=== PATIENT | male | born 1985 | race Caucasian/White ===

== ENCOUNTER 2021-04-23 08:35 | Outpatient (REF) | payer OTHER, SELFPAY ==
[2021-04-23 11:23] LABS: MANUAL DIFF FLAG NO
[2021-04-23 11:26] LABS: Basophils Absolute Auto 0.1 X10*3/uL (0.0-0.2); Basophils Percent Auto 0.8 % (0-2); Eosinophils Absolute Auto 0.1 X10*3/uL (0.0-0.4); Hematocrit 43.7 % (42.0-52.0); Hemoglobin 14.5 g/dl (14.0-18.0); Imm Gran Abs Auto 0.01 X10*3/uL (0.00-0.03); Imm Gran Pct Auto 0.2 % (0.0-0.4); Lymphocytes Absolute Auto 1.9 X10*3/uL (1.2-4.9); Lymphocytes Percent Auto 28.8 % (20-40); Mean Corpuscular HGB Conc 33.2 g/dl (31.0-36.0); Mean Corpuscular Hemoglobin 29.1 pg (27.0-33.0); Mean Corpuscular Volume 87.6 fL (80.0-98.0); Mean Platelet Volume 11.1 fL (9.4-12.4); Monocytes Absolute Auto 0.5 X10*3/uL (0.1-1.2); Neutrophils Absolute Auto 4.03 x10*3/uL (2.0-8.3); Neutrophils Percent Auto 61.2 % (45-73); Platelet Count 261 X10*3/uL (160-400); Red Blood Count 4.99 X10*6/uL (4.60-5.80); Red Cell Distribution Width 13.8 % (11.0-16.0); White Blood Count 6.6 X10*3/uL (4.8-10.8)
[2021-04-23 11:46] LABS: Alanine Aminotransferase 32 U/L (0-40); Albumin Level 4.4 g/dL (3.5-5.0); Alkaline Phosphatase 72 U/L (39-117); Anion Gap 11 (12-20); Aspartate Amino Transferase 19 U/L (5-37); Bilirubin Total 1.4 mg/dL (0.0-1.0); Blood Urea Nitrogen 13 mg/dL (9-16); Calcium 9.5 mg/dL (8.4-10.2); Carbon Dioxide 27 mmol/L (22-29); Chloride 106 mmol/L (96-108); Cholesterol 229 mg/dL; Estimated Glomerular Filt Rate > 60; Glucose Fasting 102 mg/dL (60-99); HDL Cholesterol 53 mg/dL; LDL Cholesterol Calculated 157 mg/dl; Potassium 4.2 mmol/L (3.3-5.1); Sodium 140 mmol/L (135-145); Triglycerides 97 mg/dL
[2021-04-23 12:09] LABS: TSH reflex Free T4 1.91 uIU/mL (0.32-4.0)
[2021-04-23 13:22] LABS: Appearance Urine CLEAR; Color Urine YELLOW; Glucose Urine UA NEG (NEG); Leukocyte Esterase Urine NEG (NEG); Nitrite Urine NEG (NEG); PH 6.5 (5.0-8.0); Specific Gravity - Urine 1.015 (1.005-1.025); Urine Blood NEG (NEG); Urine Ketones NEG (NEG); Urine Protein NEG (NEG-TRACE)
== END 2021-04-23 08:36 | disposition home or self-care (01) ==
LOC: HO.HMGCLDS 08:35
PROVIDERS: PCP Nurse Practitioner Family; Visit Provider Nurse Practitioner Family
DX: Z00.00 Encounter for general adult medical examination without abnormal findings (principal)
CPT/HCPCS: 36415; 80053; 80061; 81003; 84443; 85025

== ENCOUNTER 2021-10-27 08:52 | Outpatient (REF) | payer OTHER, SELFPAY ==
[2021-10-27 11:35] LABS: Appearance Urine CLEAR; Color Urine YELLOW; Glucose Urine UA NEG (NEG); Leukocyte Esterase Urine NEG (NEG); Nitrite Urine NEG (NEG); PH 6.5 (5.0-8.0); Urine Blood NEG (NEG); Urine Ketones NEG (NEG); Urine Protein NEG (NEG-TRACE)
[2021-10-27 12:12] LABS: Alanine Aminotransferase 28 U/L (0-40); Albumin Level 4.2 g/dL (3.5-5.0); Alkaline Phosphatase 67 U/L (39-117); Anion Gap 12 (12-20); Aspartate Amino Transferase 19 U/L (5-37); Bilirubin Total 1.5 mg/dL (0.0-1.0); Blood Urea Nitrogen 14 mg/dL (9-16); Calcium 9.5 mg/dL (8.4-10.2); Carbon Dioxide 25 mmol/L (22-29); Chloride 106 mmol/L (96-108); Cholesterol 199 mg/dL; Estimated Glomerular Filt Rate > 60; Glucose Fasting 104 mg/dL (60-99); HDL Cholesterol 50 mg/dL; LDL Cholesterol Calculated 127 mg/dl; Potassium 4.3 mmol/L (3.3-5.1); Sodium 139 mmol/L (135-145); Total Protein 6.9 g/dL (6.5-8.0); Triglycerides 110 mg/dL
[2021-10-27 12:26] LABS: TSH reflex Free T4 2.07 uIU/mL (0.32-4.0)
== END 2021-10-27 08:53 | disposition home or self-care (01) ==
LOC: HO.HMGCLDS 08:52
PROVIDERS: PCP Nurse Practitioner Family; Visit Provider Nurse Practitioner Family
DX: E66.9 Obesity, unspecified (principal); E78.5 Hyperlipidemia, unspecified
CPT/HCPCS: 36415; 80053; 80061; 81003; 84443

== ENCOUNTER → 2021-12-14 11:24 | Outpatient (BNVA) | payer OTHER, SELFPAY | PROVIDERS: PCP Nurse Practitioner Family; Visit Provider Dietitian, Registered | DX: E66.9 Obesity, unspecified (principal); Z68.41 Body mass index [BMI] 40.0-44.9, adult; Z71.3 Dietary counseling and surveillance | CPT/HCPCS: 97802 ==

== ENCOUNTER 2022-08-19 06:57 | Outpatient (REF) | payer OTHER, SELFPAY ==
[2022-08-19 11:29] LABS: Appearance Urine Turbid; Color Urine Yellow; Glucose Urine UA Negative (Negative); Leukocyte Esterase Urine Negative (Negative); Nitrite Urine Negative (Negative); PH 5.5 (5.0-9.0); Urine Blood Negative (Negative); Urine Ketones Negative (Negative); Urine Protein Negative (Neg-Trace)
[2022-08-19 11:31] LABS: MANUAL DIFF FLAG NO
[2022-08-19 11:40] LABS: Basophils Percent Auto 0.8 % (0-2); Eosinophils Absolute Auto 0.1 X10*3/uL (0.0-0.4); Eosinophils Percent Auto 2.3 % (0-4); Hematocrit 42.8 % (42.0-52.0); Hemoglobin 14.1 g/dl (14.0-18.0); Imm Gran Abs Auto 0.01 X10*3/uL (0.00-0.03); Imm Gran Pct Auto 0.2 % (0.0-0.4); Lymphocytes Absolute Auto 1.6 X10*3/uL (1.2-4.9); Mean Corpuscular HGB Conc 32.9 g/dl (31.0-36.0); Mean Corpuscular Hemoglobin 28.8 pg (27.0-33.0); Mean Corpuscular Volume 87.5 fL (80.0-98.0); Mean Platelet Volume 11.5 fL (9.4-12.4); Monocytes Absolute Auto 0.4 X10*3/uL (0.1-1.2); Monocytes Percent Auto 8.6 % (2-11); Neutrophils Absolute Auto 2.9 x10*3/uL (2.0-8.3); Neutrophils Percent Auto 56.1 % (45-73); Platelet Count 235 X10*3/uL (160-400); Red Blood Count 4.89 X10*6/uL (4.60-5.80); Red Cell Distribution Width 13.6 % (11.0-16.0); White Blood Count 5.1 X10*3/uL (4.8-10.8)
[2022-08-19 12:12] LABS: Alanine Aminotransferase 24 U/L (0-40); Albumin Level 4.2 g/dL (3.5-5.0); Alkaline Phosphatase 74 U/L (39-117); Anion Gap 9 (12-20); Aspartate Amino Transferase 20 U/L (5-37); Bilirubin Total 1.4 mg/dL (0.0-1.0); Blood Urea Nitrogen 18 mg/dL (9-16); Calcium 8.7 mg/dL (8.4-10.2); Carbon Dioxide 26 mmol/L (22-29); Chloride 107 mmol/L (96-108); Cholesterol 195 mg/dL; Estimated Glomerular Filt Rate > 60; Glucose Fasting 98 mg/dL (60-99); HDL Cholesterol 43 mg/dL; LDL Cholesterol Calculated 140 mg/dl; Potassium 4.1 mmol/L (3.3-5.1); Sodium 138 mmol/L (135-145); TSH reflex Free T4 2.03 uIU/mL (0.32-4.0); Total Protein 6.6 g/dL (6.5-8.0); Triglycerides 64 mg/dL
== END 2022-08-19 06:58 | disposition home or self-care (01) ==
LOC: HO.HMGCLDS 06:57
PROVIDERS: PCP Nurse Practitioner Family; Visit Provider Nurse Practitioner Family
DX: Z00.00 Encounter for general adult medical examination without abnormal findings (principal)
CPT/HCPCS: 36415; 80053; 80061; 81003; 84443; 85025

== ENCOUNTER 2023-04-18 08:10 | Outpatient (AMB) | payer OTHER, SELFPAY ==
--- NOTE | 2023-04-18 08:25 | MHC.OFFWIV ---
Intake Vital Signs 04/18/23 08:26 Height 6 ft Weight 244 lb 4 oz BMI 33.1 BP 120/72 Blood Pressure Location Rt brachial Position Sitting Pulse 56 Pulse Source Pulse Oximeter Temp 97.9 F Temp Source Oral Pulse Oximetry (%) 96 Oxygen Delivery Method Room Air Intake Visit Reasons: EP Rash Intake Note: Patient is here today for a rash which pt states started from groin area and spread to upper chest area. Patient states it occurred Tuesday. Patient Tobacco Use Status: Never used Tobacco Allergies No Known Allergies Allergy (Verified 04/18/23 08:47) Medication List - Last Reconciled 04/18/23 by Tucker Hendrix MD multivitamin 1 tab PO DAILY Do you need a note to return to daycare/school/sports/work: No HPI EP Rash HPI Details 37-year-old male presents to the office for a sick visit. Patient is reporting symptoms of her rash for the past 2 or 3 days. The rash began in the groin and has now spread into the chest and upper arm area. Predominant symptoms are itching. Patient travel to the [place] and returned a week ago. He has active . [facility] Surgical History History of appendectomy Family History Paternal Grandfather Heart disease Diabetes Social History Housing: Condominium Alcohol intake: current Alcohol intake frequency: a few times a week Patient Tobacco Use Status: Never used Tobacco e-Cigarette/Vaping Use: Never Used service: Yes Current occupational status: employed Cognitive needs: No Hearing needs: No Vision needs: Yes Physical Exam Vital Signs: Last Vital Signs Temp 97.9 F 04/18/23 08:26 Pulse 56 04/18/23 08:26 BP 120/72 04/18/23 08:26 Pulse Ox 96 04/18/23 08:26 Oxygen Delivery Method Room Air 04/18/23 08:26 BMI result Body Mass Index 33.1 Const General: cooperative and healthy appearing Nutritional Appearance: well nourished Orientation/consciousness: patient oriented x3 Limitations: no limitations HEENT Head: Yes normal to inspection Eyes General: appearance normal, both eyes and all related structures Neck Neck: Yes normal visual inspection Chest Chest palpation & inspection: normal palpation of entire chest wall Resp Effort & Inspection: normal respiratory effort Skin Other: Erythematous rash in the groin and upper arms. The rash is maculopapular with no vesicles or pustules. No scales seen. Neuro General: patient oriented x3 Assessment & Plan Assessment & Plan (1) Rash: Code(s): R21 - Rash and other nonspecific skin eruption Plan: Rashes mostly irritant in etiology. Tapering dose of prednisone and hydrocortisone cream given. If symptoms do not improve to follow-up here. Coding Level of Care Code Est Pt Level 3 (75696) Diagnoses Rash R21
[2023-04-18 08:26] VITALS: BP 120/72; PULSE 56; TEMP 36.6; O2SAT 96; BMI 33.1
== END 2023-04-18 08:52 | disposition home or self-care (01) ==
PROVIDERS: PCP Nurse Practitioner Family; Visit Provider Internal Medicine
DX: R21 Rash and other nonspecific skin eruption (principal)
CPT/HCPCS: 99213

== ENCOUNTER 2023-09-05 08:48 | Outpatient (AMB) | payer OTHER, SELFPAY ==
[2023-09-05 08:51] VITALS: BP 122/78; PULSE 62; O2SAT 98; BMI 33.6
--- NOTE | 2023-09-05 08:51 | A.OFFPC_ITS ---
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 Will order labs. Pt c/o bilat knee pain. He reports that this is worse when exercising, (long runs, doing squats, or lunges). Pt does report popping. Will order XRs and refer to ortho. [facility] Surgical History History of appendectomy Family History Paternal Grandfather Heart disease Diabetes Social History Housing: Condominium Alcohol intake: current Alcohol intake frequency: a few times a week Patient Tobacco Use Status: Never used Tobacco e-Cigarette/Vaping Use: Never Used service: Yes Current occupational status: employed Cognitive needs: No Hearing needs: No Vision needs: Yes Questionnaire PHQ-9 Over the last 2 weeks, how often have you been bothered by any of the following problems? 1. Little interest or pleasure in doing things: not at all 2. Feeling down, depressed, or hopeless: not at all 3. Trouble falling or staying asleep, or sleeping too much: not at all 4. Feeling tired or having little energy: several days 5. Poor appetite or overeating: not at all 6. Feeling bad about yourself - or that you are a failure or have let yourself or your family down: not at all 7. Trouble concentrating on things, such as reading the newspaper or watching television: not at all 8. Moving or speaking so slowly that other people could have noticed. Or the opposite - being so fidgety or restless that you have been moving around a lot more than usual: not at all 9. Thoughts that you would be better off or of hurting yourself in some way: not at all Total score: 1 Depression Screening Interpretation: Negative Depression Screening Done: Yes 12503 - PHQ-9 Billing: Yes Source: Developed by Drs. You Mchugh, Malia Cast, Choco Enriquez and colleagues, with an educational elmer from [id number]. Thrive Questionnaire Date Thrive assessed: 09/05/23 I am a: Patient What is your living situation today?: I have a steady place to live Within the past 12 months, did the food you bought not last and you didn't have the money to get more?: Never true Within the past 12 months, did you worry whether your food would run out before you got money to buy more?: Never true Do you have trouble paying for medicines?: No Do you have trouble getting transportation to medical appointments?: No Do you have trouble paying your heating and electricity bill?: No Do you have trouble taking care of your child, family member or friend?: No Do you have trouble with day-to-day activities such as bathing, preparing meals, shopping, managing finances, etc.?: No Are you currently unemployed and looking for a job?: No Are you interested in more education?: No Please select the resources that you would like help with: None Currently or been in a relationship where the following occur: no concerns reported THRIVE Score: 0 AUDIT C Alcohol Use Questionnaire (AUDIT-C) 1. How often do you have a drink containing alcohol?: 2-4 times a month 2. How many drinks containing alcohol do you have on a typical day when you are drinking?: 3 or 4 3. How often do you have six or more drinks on one occasion?: Never Total Score: 3 Score Reviewed/Action Taken: Yes NARA-7 AMB Questionnaire NARA-7 Date NARA - 7 assessed: 09/05/23 Feeling nervous, anxious, or on edge: 0 = Not at all Not being able to stop or control worryin = Not at all Worrying too much about different things: 0 = Not at all Trouble relaxin = Not at all Being so restless that it is hard to sit still: 0 = Not at all Becoming easily annoyed or irritable: 0 = Not at all Feeling afraid as if something awful might happen: 0 = Not at all Total NARA-7 score (0-4 normal; 5-9 mild; 10-14 moderate; 15-21 severe): 0 Source: Developed by Drs. You Mchugh, Malia Cast, Choco Enriquez and colleagues, with an educational elmer from [id number]. NARA-7 Assessment Billing NARA-7 Assessment Tool: NARA-7 Assessment 46551 Review of Systems Const Denies chills and Denies fever(s) Eyes Denies blurry vision ENT Denies vertigo, Denies dizziness and Denies sore throat Card Denies chest pain at rest, Denies chest pain with activity, Denies diaphoresis, Denies dyspnea and Denies dyspnea on exertion Resp Denies cough, Denies dyspnea, Denies dyspnea on exertion and Denies wheezing GI Denies abdominal pain, Denies melena, Denies hematochezia, Denies constipation, Denies diarrhea and Denies loose stools Denies hematuria Musc Denies numbness and Denies tingling Skin/Breast Denies lesions Neuro Denies vertigo, Denies dizziness, Denies numbness and Denies tingling Psych Denies anxiety, Denies depression, Denies homicidal ideation, Denies suicidal ideation and Denies other (substance abuse) Aller/Immun Denies wheezing Physical exam (Primary Care) Vital Signs: Last Vital Signs Pulse 62 09/05/23 08:51 BP 122/78 09/05/23 08:51 Pulse Ox 98 09/05/23 08:51 Oxygen Delivery Method Room Air 09/05/23 08:51 BMI result Body Mass Index 33.6 Tobacco/Smoking Status: Tobacco use Status Tobacco use date assessed 09/05/23 09/05/23 08:52 Patient Tobacco Use Status Never used Tobacco 09/05/23 08:52 e-Cigarette/Vaping Use Never Used 09/05/23 08:52 PHQ-9: PHQ-9 Score PHQ-9: Total score 1 09/05/23 09:08 Depression Screening Interpretation: Negative Thrive Assessment: Date of Thrive Assessment Date Thrive assessed 09/05/23 09/05/23 08:56 Currently or been in a relationship where the following occur: no concerns reported Const General: cooperative Nutritional Appearance: obese Orientation/consciousness: patient oriented x3 HENMT Head: Yes normal to inspection, Yes normocephalic and Yes atraumatic Ears: TM's normal bilaterally Eyes General: appearance normal, both eyes and all related structures Alignment and Position: alignment normal and position normal Neck Neck: Yes normal visual inspection and Yes no lymphadenopathy Thyroid: Thyroid normal Resp Effort & Inspection: normal respiratory effort Auscultation: clear to auscultation bilaterally Cardio Rate: regular rate Rhythm: regular rhythm Heart sounds: S1 normal heart sound present, S2 normal heart sound present and no murmurs GI Palpation (GI): Soft to palpation and nontender Auscultation: normal bowel sounds Male General Exam: Yes normal external exam Penis: normal penis Scrotum: scrotum normal, testes descended bilaterally and no inguinal hernias Testes: no testicular mass Skin Rashes: no rashes Neuro General: patient oriented x3, moves all extremities, no focal motor deficits and deep tendon reflexes 2+ bilaterally Romberg Test: Negative Extrem Other: crepitus noted to bilat knees, right>left, - lachmans, - mcmurrays, no active swelling Psych Appearance: grossly normal Mental Status: mental status grossly normal Speech and movement: Normal speech and movement present Affect: normal affect Attitude: cooperative Thought process: Normal thought process present Thought content: Normal thought content present Insight: Good insight present (Psych) Judgement: Good judgement present (Psych) Assessment and Plan Assessment & Plan (1) Physical exam: Code(s): Z00.00 - Encounter for general adult medical examination without abnormal findings Plan: lab ordered (2) Bilateral knee pain: Code(s): M25.561 - Pain in right knee; M25.562 - Pain in left knee Plan: XRs ordered, referred to ortho Plan The patient agreed to the use of a medical coding manager for this encounter. Scribed for DEVONTE Rodríguez-ANDI by Annie De La Fuente, medical coding manager, on 09/05/2023 at 09:10 EST. Orders: Orders Comprehensive [place]. Panel Fast Today Z00.00 - Encounter for general adult medical examination without abnormal findings TSH reflex Free T4 Today Z00.00 - Encounter for general adult medical examination without abnormal findings UA CC w/rflx Micro + Cult Today Z00.00 - Encounter for general adult medical examination without abnormal findings Complete Blood Count Auto Diff Today Z00.00 - Encounter for general adult medical examination without abnormal findings Lipid Panel Today Z00.00 - Encounter for general adult medical examination without abnormal findings XR knee RT 2V Today M25.561 - Pain in right knee, M25.562 - Pain in left knee XR knee LT 2V Today M25.561 - Pain in right knee, M25.562 - Pain in left knee Referrals Orthopedics Referral M25.561 - Pain in right knee, M25.562 - Pain in left knee Coding Level of Care Code Est Pt Prev Care 18-39y(73185) Diagnoses Physical exam Z00.00 Bilateral knee pain M25.561; M25.562 Additional Codes NARA-7 Assessment Billing - NARA-7 Assessment Tool: NARA-7 Assessment 87594 ([id number])
== END 2023-09-05 09:21 | disposition home or self-care (01) ==
PROVIDERS: PCP Nurse Practitioner Family; Visit Provider Nurse Practitioner Family
DX: Z00.00 Encounter for general adult medical examination without abnormal findings (principal); M25.561 Pain in right knee; M25.562 Pain in left knee
CPT/HCPCS: 99395

== ENCOUNTER 2023-09-05 09:22 | Outpatient (REF) | payer OTHER, SELFPAY ==
--- NOTE | ~2023-09-05 | XR_ITS ---
X-RAY BILATERAL KNEES CLINICAL HISTORY: Pain. COMPARISON: No relevant prior studies are available for comparison. TECHNIQUE: 2 views of each knee. FINDINGS: No fractures or subluxation. Trace joint space narrowing and subcortical sclerosis of the medial compartments in both knees. No osseous erosions. No chondrocalcinosis. Trace joint effusion in the left knee. XR/XR knee LT 2V IMPRESSION: 1. No acute fractures or subluxation. 2. Trace joint effusion in the left knee. 3. 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
--- NOTE | ~2023-09-05 | XR_ITS ---
X-RAY BILATERAL KNEES CLINICAL HISTORY: Pain. COMPARISON: No relevant prior studies are available for comparison. TECHNIQUE: 2 views of each knee. FINDINGS: No fractures or subluxation. Trace joint space narrowing and subcortical sclerosis of the medial compartments in both knees. No osseous erosions. No chondrocalcinosis. Trace joint effusion in the left knee. XR/XR knee RT 2V IMPRESSION: 1. No acute fractures or subluxation. 2. Trace joint effusion in the left knee. 3. 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
[2023-09-05 11:08] LABS: MANUAL DIFF FLAG NO
[2023-09-05 11:08] LABS: Appearance Urine Clear; Color Urine Yellow; Glucose Urine UA Negative (Negative); Leukocyte Esterase Urine Negative (Negative); Nitrite Urine Negative (Negative); PH 7.5 (5.0-9.0); Urine Blood Negative (Negative); Urine Ketones Negative (Negative); Urine Protein Negative (Neg-Trace)
[2023-09-05 11:23] LABS: Basophils Percent Auto 0.9 % (0-2); Eosinophils Absolute Auto 0.1 X10*3/uL (0.0-0.4); Eosinophils Percent Auto 2.5 % (0-4); Hematocrit 42.3 % (42.0-52.0); Hemoglobin 14.1 g/dl (14.0-18.0); Imm Gran Abs Auto 0.01 X10*3/uL (0.00-0.03); Imm Gran Pct Auto 0.2 % (0.0-0.4); Lymphocytes Absolute Auto 1.5 X10*3/uL (1.2-4.9); Lymphocytes Percent Auto 34.5 % (20-40); Mean Corpuscular HGB Conc 33.3 g/dl (31.0-36.0); Mean Platelet Volume 11.2 fL (9.4-12.4); Monocytes Absolute Auto 0.3 X10*3/uL (0.1-1.2); Monocytes Percent Auto 5.9 % (2-11); Neutrophils Absolute Auto 2.5 x10*3/uL (2.0-8.3); Platelet Count 229 X10*3/uL (160-400); Red Cell Distribution Width 13.7 % (11.0-16.0); White Blood Count 4.4 X10*3/uL (4.8-10.8)
[2023-09-05 11:42] LABS: Alanine Aminotransferase 27 U/L (0-40); Albumin Level 4.2 g/dL (3.5-5.0); Alkaline Phosphatase 53 U/L (39-117); Anion Gap 11 (12-20); Aspartate Amino Transferase 22 U/L (5-37); Bilirubin Total 0.8 mg/dL (0.0-1.0); Blood Urea Nitrogen 19 mg/dL (9-16); Calcium 9.4 mg/dL (8.4-10.2); Carbon Dioxide 28 mmol/L (22-29); Chloride 105 mmol/L (96-108); Cholesterol 230 mg/dL (<200); Estimated Glomerular Filt Rate > 60; Glucose Fasting 98 mg/dL (60-99); HDL Cholesterol 68 mg/dL (>40); LDL Cholesterol Calculated 149 mg/dL (<100); Sodium 140 mmol/L (135-145); Total Protein 7.1 g/dL (6.5-8.0); Triglycerides 69 mg/dL (<150)
[2023-09-05 11:59] LABS: TSH reflex Free T4 2.35 uIU/mL (0.32-4.0)
== END 2023-09-05 09:23 | disposition home or self-care (01) ==
LOC: HO.HMGCX 09:22
PROVIDERS: PCP Nurse Practitioner Family; Visit Provider Nurse Practitioner Family
DX: Z00.00 Encounter for general adult medical examination without abnormal findings (principal); M25.561 Pain in right knee; M25.562 Pain in left knee
CPT/HCPCS: 36415; 73560; 80053; 80061; 81003; 84443; 85025

== ENCOUNTER 2023-09-21 10:22 | Outpatient (REF) | payer OTHER, SELFPAY ==
--- NOTE | ~2023-09-21 | XR_ITS ---
EXAMINATION: 1. PATELLAR SUNRISE VIEW OF THE RIGHT KNEE 2. PATELLAR SUNRISE VIEW OF THE LEFT KNEE CLINICAL INFORMATION: Bilateral knee pain COMPARISON: Bilateral knee radiographs September 05, 2023 TECHNIQUE: Patellar sunrise views of both knees were obtained. FINDINGS: Right knee: No right patellar fracture. Right patellofemoral joint space is well-maintained. No appreciable osteophytes. No localized soft tissue swelling. Left knee: No left-sided patellar fracture. Left patellofemoral joint space is well-maintained. No appreciable osteophytes. No localized soft tissue swelling. XR/XR knee RT 1V IMPRESSION: Unremarkable patellar sunrise radiographs of the bilateral knees.
--- NOTE | ~2023-09-21 | XR_ITS ---
EXAMINATION: 1. PATELLAR SUNRISE VIEW OF THE RIGHT KNEE 2. PATELLAR SUNRISE VIEW OF THE LEFT KNEE CLINICAL INFORMATION: Bilateral knee pain COMPARISON: Bilateral knee radiographs September 05, 2023 TECHNIQUE: Patellar sunrise views of both knees were obtained. FINDINGS: Right knee: No right patellar fracture. Right patellofemoral joint space is well-maintained. No appreciable osteophytes. No localized soft tissue swelling. Left knee: No left-sided patellar fracture. Left patellofemoral joint space is well-maintained. No appreciable osteophytes. No localized soft tissue swelling. XR/XR knee LT 1V IMPRESSION: Unremarkable patellar sunrise radiographs of the bilateral knees.
== END 2023-09-21 10:23 | disposition home or self-care (01) ==
LOC: HO.HOSX 10:22
PROVIDERS: Visit Provider Physician Assistant
DX: M22.2X2 Patellofemoral disorders, left knee (principal); M22.2X1 Patellofemoral disorders, right knee
CPT/HCPCS: 73560; 99202

== ENCOUNTER 2023-09-21 11:11 | Outpatient (AMB) | payer OTHER, SELFPAY ==
--- NOTE | 2023-09-21 11:17 | A.OFFVIS_ITS ---
Intake Vital Signs 09/21/23 11:22 Height 6 ft Weight 248 lb BMI 33.6 Intake Visit Reasons: N/P B/L knee pain Intake Note: Dev aguilera 38 year old male presents today as a new patient for an evaluation of bilateral knee pain. Patient reports ongoing soreness and is unable to lift weight with his leg. He states most of his pain is located at the anterior aspect of knee. His right knee pain is worse. Finds no help with knee bracing. No previous tx. Hx of hyperextension of right knee in 2019. Denies numbness or tingling. Allergies No Known Allergies Allergy (Verified 09/21/23 11:38) HPI N/P B/L knee pain HPI0 Details 38-year-old male who presents to the off [place] today for evaluation of bilateral knee pain. He states he has ongoing soreness and pain at the anterior aspect of his bilateral knees which is worse on his right knee. His pain is aggravated with prolonged sitting, driving, and exercises. The pain makes him unable to lift weight with his leg. He also c/o crunching and grinding in his knees. He denies any numbness or tingling. He finds no relief with knee bracing. He denies any previous injury and has not had any previous treatment. He has a history of hyperextension of right knee in 2019. He works in [employer]. [facility] Surgical History History of appendectomy Family History Paternal Grandfather Heart disease Diabetes Social History Housing: Condominium Alcohol intake: current Alcohol intake frequency: a few times a week Patient Tobacco Use Status: Never used Tobacco e-Cigarette/Vaping Use: Never Used service: Yes Current occupational status: employed Cognitive needs: No Hearing needs: No Vision needs: Yes Review of Systems Const All systems reviewed & are unremarkable except as noted in HPI and below Physical Exam Vital Signs: BMI result Body Mass Index 33.6 Const General: cooperative, healthy appearing, comfortable, no acute distress, well developed and alert Orientation/consciousness: patient oriented x3 HEENT Head: Yes normal to inspection, Yes normocephalic and Yes atraumatic Eyes General: appearance normal, both eyes and all related structures Resp Effort & Inspection: normal respiratory effort and able to speak in complete sentences Cardio Rate: regular rate Peripheral pulses: Peripheral pulses 2+ throughout GI Palpation (GI): Soft to palpation Skin Lesions: no lesions Rashes: no rashes Neuro General: patient oriented x3 Extrem Other: Bilateral knee: Skin intact, no erythema or joint effusion. Tenderness along the medial and lateral joint line. Full ROM with crepitus. Negative Sylwia?s. No ligamentous laxity. NVI. Results Reviewed Results Reviewed: Xrays were obtained in the office today and personally reviewed by me of both knees show pf lateralization Assessment & Plan Assessment & Plan (1) Patellofemoral arthralgia of both knees: Code(s): M22.2X1 - Patellofemoral disorders, right knee; M22.2X2 - Patellofemoral disorders, left knee Plan We discussed options which include PT, NSAIDs and injections. The patient will defer on the injection today and proceed with PT and NSAIDs. If symptoms persist, the patient will contact me for an injection, otherwise, PRN. Orders: Orders XR knee LT 1V 09/21/23 M25.562 - Pain in left knee XR knee RT 1V 09/21/23 M25.561 - Pain in right knee PT Evaluation and Treatment 09/21/23 M22.2X1 - Patellofemoral disorders, right knee, M22.2X2 - Patellofemoral disorders, left knee Patient Instructions: Scribed for Eileen Price PA-C, by Rafita Mcdonough medical/surgery registered nurse, on 09/21/2023 at 11:15 AM EST. IEileen PA-C, have personally reviewed and agree with the information entered by the scribe. Coding Level of Care Code New Pt Level 3 (36899) Diagnoses Patellofemoral arthralgia of both knees M22.2X1; M22.2X2
[2023-09-21 11:22] VITALS: BMI 33.6
== END 2023-09-21 12:03 | disposition home or self-care (01) ==
PROVIDERS: PCP Nurse Practitioner Family; Visit Provider Physician Assistant
DX: M22.2X1 Patellofemoral disorders, right knee (principal); M22.2X2 Patellofemoral disorders, left knee
CPT/HCPCS: 99203

== ENCOUNTER 2023-11-24 14:00 | Outpatient (RCR) | payer OTHER, SELFPAY ==
--- NOTE | 2023-10-17 12:20 | MHC.PT.EP ---
[facility] [place] Office [place] Office [place] Office [address] Giovanny ePrez [address] [phone] F: [phone] F: [phone] F: [phone] F: [phone] Physical Therapy Plan of Care Date of Evaluation: 10/17/23 Date of Surgery: n/a Diagnosis: patellofemoral arthralgia B knees Assessment: Patient is a 38 year old male presenting to PT with complaints of pain in his B knees. Pt reports onset of pain began about 6-7 years ago due to insidious onset but does have a hx of hyperextending his knees. He presents today with impairments in pain, ROM, hip strength, functional strength. Pt's current occupation is in the [employer], with baseline physical activities including stair negotiation, ambulating, work, squatting, lunges. 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 Clinical presentation today is most consistent with signs and sx associated with B knee pain and pt will benefit from skilled PT 2 week x 4 weeks to address the following problems and impairments noted upon evaluation: pain, ROM, hip strength, functional strength. These problems limit the patient with the following functional activities: squats, lunges, sitting, stair negotiation. The prescribed treatment plan of care is medically necessary. Co-morbidities of none were identified and taken into considerations of plan of care. Pt was educated on HEP, role of PT, prognosis, POC. Frequency and Duration: The patient will be seen 2 x week x 4 weeks Short Term Goals: Pt will demonstrate improved hip MMT strength by 1/3 grade in 2 weeks for improved lumbopelvic stability. Pt will demonstrate B knee ROM in available range with min to no pain in 2 weeks. Pt will demonstrate improved quad length in 2 weeks. Electronic Lab Technician Goals: Pt will demonstrate improved LEFI score by 9 points in 4 weeks for improved functional mobility. Pt will demonstrate ability to negotiate stairs with min to no pain in 4 weeks for return to PLOF. Pt will demonstrate ability to squat and lunge with min to no pain in 4 weeks for return to PLOF. Treatment Plan: Modalities to reduce pain, spasms and effusion. Manual therapy to restore motion and function. Therapeutic exercise to improve strength and flexibility. Neuromuscular re-education for posture and balance. Therapeutic activities to return to functional activities of daily living. Electronically signed by: Zoe Browne PT, DPT, ATC Please sign and return to therapist. Thank you for your referral.
--- NOTE | 2023-11-24 14:54 | MHC.PT.DC ---
[facility] [place] Office [place] Office [place] Office [address] Giovanny Perez [address] [phone] F: [phone] F: [phone] F: [phone] F: [phone] Physical Therapy Discharge Report Diagnosis: patellofemoral arthralgia B knees Date of Surgery: n/a Date of Evaluation: 10/17/23 Date of Discharge: 11/24/23 Treatments to Date: 9 Cancellations to Date: 0 No Shows to Date: 0 Discharge Status: Improved Function Independent with HEP Discharge Summary: 11/24/2023: Pt has made progress in strength, ROM, and muscle length since start of care. Despite this he is still however having pain in his knees primarily with activities like squatting, stair negotiating, and lunging. Again discussed recommendation to reduce load on knees but doing less running temporarily to allow pain to improve however he is reluctant to do so. At this time we have provided max benefits of PT and therefore skilled PT is no longer indicated. I reviewed with him that he should continue with HEP detention to help maintain gains made thus far. Electronically signed by: Zoe Browne, PT, DPT, ATC Please sign and return to therapist. Thank you for your referral.
== END 2023-11-24 14:55 | disposition home or self-care (01) ==
LOC: HO.PTCHIC 14:00
PROVIDERS: PCP Nurse Practitioner Family; Visit Provider Physician Assistant
DX: M22.2X2 Patellofemoral disorders, left knee (principal); M22.2X1 Patellofemoral disorders, right knee
CPT/HCPCS: 97110; 97161

== ENCOUNTER 2024-02-07 08:50 | Outpatient (AMB) | payer OTHER, SELFPAY ==
--- NOTE | 2024-02-07 08:55 | AM.OFFWIN_ITS ---
Intake Vital Signs 02/07/24 08:56 Height 6 ft Weight 262 lb BMI 35.5 BP 118/76 Blood Pressure Location Rt brachial Position Sitting Pulse 73 Pulse Source Pulse Oximeter Pulse Oximetry (%) 98 Oxygen Delivery Method Room Air Intake Visit Reasons: EP- concussion, needs clearance for work Intake Note: Patient here because he had a concussion and needs to be cleared to go back to work. Pt states he still has headaches,eyes hurting during screen time. Patient Tobacco Use Status: Never used Tobacco Allergies No Known Allergies Allergy (Verified 02/07/24 08:57) Do you need a note to return to daycare/school/sports/work: Yes HPI HPI Comments History of Present Illness Details 38 y/o female patient who presents to [facility] with c/o Concussion. He was hit on the head during exercises on Tue. Denies LOC, Nausea or vomiting. Today he c/o headaches, dizziness, light sensitivity and blurry vision. He was evaluated at [facility] Tuesday, he was diagnosed with Concussion. [facility] Medical History (Updated 02/06/24 @ 12:41 by KIARA Flower) Head injury Surgical History History of appendectomy Family History Paternal Grandfather Heart disease Diabetes Social History Housing: Condominium Alcohol intake: current Alcohol intake frequency: a few times a week Patient Tobacco Use Status: Never used Tobacco e-Cigarette/Vaping Use: Never Used service: Yes Current occupational status: employed Cognitive needs: No Hearing needs: No Vision needs: Yes Review of Systems Const All systems reviewed & are unremarkable except as noted in HPI and below Physical Exam Vital Signs: Last Vital Signs Pulse 73 02/07/24 08:56 BP 118/76 02/07/24 08:56 Pulse Ox 98 02/07/24 08:56 Oxygen Delivery Method Room Air 02/07/24 08:56 BMI result Body Mass Index 35.5 Const General: cooperative, comfortable and no acute distress Nutritional Appearance: obese Orientation/consciousness: patient oriented x3 HEENT Head: Yes normocephalic Ears: external ears normal and TM's normal bilaterally General nose exam: Normal nasal mucous membranes and turbinates present Mouth: Normal oral and palatal mucosa present Throat: Yes posterior oropharynx normal Eyes Pupils: Equal, round and reactive pupils present EOM: EOMs intact bilaterally Resp Effort & Inspection: normal respiratory effort and able to speak in complete sentences Auscultation: clear to auscultation bilaterally, no crackles, no rales, no rhonchi and no wheezes Cardio Heart sounds: S1 normal heart sound present and S2 normal heart sound present Neuro General: patient oriented x3, gait normal and moves all extremities Cranial nerves: Yes Equal, round and reactive pupils present Psych Speech and movement: Normal speech and movement present Assessment & Plan Assessment & Plan (1) Concussion: Code(s): S06.0XAA - Concussion with loss of consciousness status unknown, initial encounter Qualifiers: Encounter type: initial encounter Loss of consciousness presence/duration: without LOC Qualified Code(s): S06.0X0A - Concussion without loss of consciousness, initial encounter Plan: Acetaminophen for pain relief Rest your Brain by avoiding any stimulation (No phones, TV or Comp) No work for few days. Coding Level of Care Code Est Pt Level 3 (46154) Diagnoses Concussion without loss of consciousness, initial encounter S06.0X0A Encounter type: initial encounter Loss of consciousness presence/duration: without LOC Time Spent (min) 15
[2024-02-07 08:56] VITALS: BP 118/76; PULSE 73; O2SAT 98; BMI 35.5
--- OUTSIDE RECORDS SUMMARY | 2024-02-08 08:09 | XMS_ITS ---
Author Organization [facility] Rebek[facility] Address [address] [place] [address] Care Team Providers Care Granite Fabricator Name Role Phone Khari Rosas Primary Care Provider Unav ailable Donnell Hazel Unavailable [phone] ALLERGIES No Known Allergies REASON FOR VISIT Heel pain MEDICATIONS Medication SIG (Take, Route, Frequency, Duration) Notes Start Date End Date Status Multivitamin - 1 tablet Once a day Unknown Night Splint AFO - L1930 1 wear at rest for 30 days Not-Taking SOCIAL HISTORY Tobacco Use: Social History Observation Description Date Details (start date - stop date) Never Smoker NA - NA Sex Assigned At : Social History Observation Description Sex Assigned At Unknown Tobacco Use/Smoking Question Answer Notes Are you a: nonsmoker Additional Findings: Tobacco Non-User Current no n-smoker Alcohol Screen Question Answer Notes Did you have a drink containing alcohol in the p ast year? Yes Points 0 Interpretation Negative Tobacco use other than smoking: Question Answer Notes Are you an other tobacco user? No VITAL SIGNS Height 6 ft in 03/22/2023 Weight 240 lbs 03/22/2023 BMI 32.55 kg/m2 03/22/2023 PROCEDURES Procedure Date Ordered Date Performed Result Body Sit e 48265,[id number] TENDON SHEATH/LIGAMENT 03/22/2023 N/A Encounters Encounter Location Date Provider Diagnosis [facility] [address] [place] [address] 03/22/2023 Donnell Hazel Plantar fasciitis M72.2 ASSESSMENTS Encounter Date Diagnosis Assessment Notes Treatment Notes Treatment Clinical Notes 03/22/2023 Plantar fasciitis (ICD-10 - M72.2) Resistant to previous conservative treatment Patient Educated with: RICE THERAPY.pdf (RICE THERAPY.pdf) Patient Educated with: INJECTIONTHERAPY. pdf (INJECTIONTHERAPY .pdf) PLAN OF TREATMENT Treatment Notes Assessment Notes Plantar fasciitis Patient Educated wit h: RICE THERAPY.pdf (RICE THERAPY.pdf) Patient Educated with: INJECTIONTHERAPY.pdf (INJECTIONTHERAPY.pdf) Pending Test Test Name Order Date ,[id number] TENDON SHEATH/LIGAMENT 1 Next Appt Details Follow Up: 4 Weeks, Reason: Procedure Notes * Category Sub-Category Detail Notes Injection Tendon Sheath or Fascia , J 0702 Injection 1 RIGHT foot, - Plantar Fascia w/ mixture of Celestone Soluspan 3mg and 1cc 1 percent Xylocaine Plain anes. utilizing aseptic technique. The patient tolerated the procedure well. A dry sterile dressing was applied. Post injection instructions were dispensed, verbally discussed, and confirmed understood by the patient. I explained that a steroid and local anesthetic injections are administered to relieve pain and inflammation and thereby meant to improve function. I explained the possible complications including but not limited to signs/symptoms of steroid flare, infection, bruising, atrophy, discoloration of skin, change/deviation in toe position, and that additional injections may be necessary, Patient relates post-procedural pain assessment improved at ( 0-1) out of 10 Progress Notes * Examination Category Sub-Category Detail Notes Heel Pain INSPECTION: Pain on Palpatio n to Plantar Fascia med. and central bands, intrinsic musc., infra-calcaneal bursa, and med calc tubercle , RIGHT foot, No pain: posterior/superior heel, achilles bursa/tendon, sinus tarsi, peroneals, or with lateral heel compression; no limited STJ ROM, calor, or ecchymosis History and Physical Notes * HPI (History of Present Illness) Category Sub-Category Detail Notes Heel pain Severity/Quality: Pre-injection procedure pain assessment - ( 8) out of 10 Location: Proximal plantar asp ect of Heel, RIGHT Aggravated: standing, walking, w alking first thing in the morning/after rest , worse at end of the day , exercise , running Treatments: rest , gel cushions , change in shoes , Pre-jason innersoles , [id number] still pending insurance Misc: Patient states previ ous conservative therapy has not provided acceptable relief. Despite previous treatments/efforts, patient continues to relate substantial pain and significant functional disability during activity
--- OUTSIDE RECORDS SUMMARY | 2024-02-08 08:09 | XMS_ITS | Patient Health Record ---
Author Organization [facility] Address [address] [place] [address] Care Team Providers Care Hardness Inspector Name Role Phone Khari Rosas Primary Care Provider Unav Donnell Martinez Unavailable [phone] ALLERGIES No Known Allergies REASON FOR REFERRAL No Information MEDICATIONS Medication SIG (Take, Route, Frequency, Duration) Notes Start Date End Date Status Night Splint AFO - L1930 1 wear at rest for 30 days Not-Taking Multivitamin - 1 tablet Once a day Unknown SOCIAL HISTORY Tobacco Use: Social History Observation [...] No VITAL SIGNS Height 6 ft in 04/12/2023 Weight 240 lbs 04/12/2023 BMI 32.55 kg/m2 04/12/2023 PROCEDURES Procedure Date Ordered Date Performed Result Body Sit e 17929,[id number] TENDON SHEATH/LIGAMENT 03/22/2023 N/A Encounters Encounter Location Date Provider Diagnosis [facility] [address] [place] [address] 02/25/2023 Donnell Hazel [facility] [address] [place] [address] 03/22/2023 Donnell Hazel Plantar fasciitis M72.2 [facility] [address] [place] [address] 04/12/2023 Donnell Hazel Plantar fasciitis M72.2 ASSESSMENTS Encounter Date Diagnosis Assessment Notes Treatment Notes Treatment Clinical Notes 03/22/2023 Plantar fasciitis (ICD-10 - M72.2) Resistant to previous conservative treatment Patient Educated with: RICE THERAPY.pdf (RICE THERAPY.pdf) Patient Educated with: INJECTIONTHERAPY. pdf (INJECTIONTHERAPY .pdf) 04/12/2023 Plantar fasciitis (ICD-10 - M72.2) Response to treatment,Improvemen t PLAN OF TREATMENT Pending Test Test Name Order Date X ray : Foot, right 3V 01/26/2023 03953,[id number] TENDON SHEATH/LIGAMENT 1 Insurance Providers Payer Name Payer Address Payer Phone Subscriber Number Group Number Insured Name Patient Relationship to Insured Coverage Start Date Coverage End Date [facility] [address] [place] [address] [phone] [id number] Dev Siu Self - patient is the insured MEDICAL (GENERAL) HISTORY Medical History History ICD Code Chicken pox Surgical History Surgery Date(Month/Year) appendectomy 1997
--- OUTSIDE RECORDS SUMMARY | 2024-02-08 08:09 | XMS_ITS ---
Author Organization [facility] Address [address] [place] [address] Care Team Providers Care Make Up Operator Helper Name Role Phone Khari Rosas Primary Care Provider Unav ailable Donnell Hazel Unavailable [phone] ALLERGIES No Known Allergies REASON FOR VISIT [...] 240 lbs 04/12/2023 BMI 32.55 kg/m2 04/12/2023 Encounters Encounter Location Date Provider Diagnosis [facility] [address] [place] [address] 04/12/2023 Donnell Hazel Plantar fasciitis M72.2 ASSESSMENTS Encounter Date Diagnosis Assessment Notes Treatment Notes Treatment Clinical Notes 04/12/2023 Plantar fasciitis (ICD-10 - M72.2) Response to treatment,Improveme nt PLAN OF TREATMENT Next Appt Details Follow Up: prn, Reason: Progress Notes * Examination Category Sub-Category Detail Notes Heel Pain INSPECTION: States approxima tely 100% LESS, Pain on Palpation to Plantar Fascia med. and central bands, intrinsic musc., infra-calcaneal bursa, and med calc tubercle , RIGHT foot History and Physical Notes * HPI (History of Present Illness) Category Sub-Category Detail Notes Heel pain Location: Proximal plantar aspect of Heel, RIGHT Treatments: rest , gel cushions , change in shoes , Pre-jason innersoles , AFO- nightsplint , corticosteriod injection(1)
--- OUTSIDE RECORDS SUMMARY | 2024-02-08 08:09 | XMS_ITS ---
Author Organization [facility] Rebekah moy [place] Address [address] [facility] [place] [address] Care Team Providers Care Purse Seiner Name Role Phone Khari Rosas Primary Care Provider Unav ailable Donnell Hazel Unavailable [phone] ALLERGIES No Known Allergies REASON FOR VISIT Seen Sooner MEDICATIONS Medication SIG (Take, Route, Fr equency, Duration) Notes Start Date End Date Status [...] other tobacco user? No VITAL SIGNS Height 6ft in 02/25/2023 Weight 300 lbs 02/25/2023 BMI 40.68 kg/m2 02/25/2023 Encounters Encounter Location Date Provider Diagnosis [facility] [address] [place] [address] 02/25/2023 Donnell Hazel PLAN OF TREATMENT No Information
== END 2024-02-07 09:27 | disposition home or self-care (01) ==
PROVIDERS: PCP Nurse Practitioner Family; Visit Provider Nurse Practitioner Family
DX: S06.0X0A Concussion without loss of consciousness, initial encounter (principal)
CPT/HCPCS: 99213

== ENCOUNTER 2024-08-21 13:22 | Outpatient (AMB) | payer OTHER, SELFPAY ==
--- NOTE | 2024-08-21 07:53 | MHC.OFFVIS ---
Intake Visit Reasons: referral for vasectomy Allergies No Known Allergies Allergy (Verified 08/21/24 08:03) Medication List - Last Reconciled 08/21/24 by KIARA Flower multivitamin 1 tab PO DAILY HPI HPI referral for vasectomy: Details: History of Present Illness The patient is a 39-year-old male presenting with concerns related to post-concussion syndrome and persistent symptoms post-head injury incurred during training. The initial event occurred in January 2024 as part of a exercise in [place] involving multiple head traumas, leading to dizziness, headaches, and vertigo. Despite seeking care at [facility] (ER visit), imaging was not performed, and only symptomatic treatment was advised. He experienced severe headaches on the subsequent flight home, and since then, persistent symptoms such as migraines localized to his bilateral temples and significant photosensitivity have been present. Excedrin Migraine offers some relief. The patient reports no current vertigo, nausea, vomiting, or other systemic symptoms. He is concurrently seeking consultation for a vasectomy. Review of Systems - Neurological: Reports photosensitivity, migraine headaches. Denies nausea, vomiting, syncope. - General: Denies fever, chills. - Cardiovascular: Denies chest pain. - Respiratory: Denies shortness of breath. PE: speaking in complete sentences, A+Ox3 Plan I will order a CT scan to assess structural impacts from the concussion, considering the ongoing migraines and photosensitivity. The patient has been using Excedrin Migraine with some relief; symptom management will continue as is unless symptoms exacerbate. I will refer the patient to a urologist for consultation regarding his request for a vasectomy. Given the absence of acute symptoms such as vertigo or systemic signs, no immediate intervention is necessary for those areas. Discussion Notes I discussed with the patient the probable post-concussion syndrome, including persistent migraines and photosensitivity, and the need to obtain a CT scan to rule out structural intracranial damage. We reviewed the benefits of this diagnostic step in the context of his ongoing symptoms and the importance of monitoring for any exacerbations. I also discussed the use of Excedrin Migraine for symptomatic relief. In light of his interest in a vasectomy, I explained the referral process to urology and confirmed his understanding and agreement with this course of action. We agreed on the need for follow-up contingent upon his imaging results and any changes in his symptoms. Patient Instructions - Continue to manage migraines with Excedrin Migraine as previously advised. - Await scheduling for a CT scan to further evaluate head injury impact. - Expect a referral to urology for vasectomy consultation. - Monitor for any worsening or new symptoms and seek medical attention if needed. - Follow up as discussed contingent on imaging results and symptom changes. [facility] Medical History Head injury Surgical History History of appendectomy Family History Paternal Grandfather Heart disease Diabetes Social History Housing: Condominium Alcohol intake: current Alcohol intake frequency: a few times a week Patient Tobacco Use Status: Never used Tobacco e-Cigarette/Vaping Use: Never Used service: Yes Current occupational status: employed Cognitive needs: No Hearing needs: No Vision needs: Yes Assessment & Plan Assessment & Plan (1) Admission for vasectomy: Code(s): Z30.2 - Encounter for sterilization Category: Medical (2) Concussion: Code(s): S06.0XAA - Concussion with loss of consciousness status unknown, initial encounter Category: Medical (3) Head injury: Code(s): S09.90XA - Unspecified injury of head, initial encounter Category: Medical Plan . Orders: Orders CT head/brain wo IV con Today S06.0XAA - Concussion with loss of consciousness status unknown, initial encounter, S09.90XA - Unspecified injury of head, initial encounter Referrals Urology Referral Z30.2 - Encounter for sterilization Coding Level of Care Code Tele Est Pt Level 3 (16744) Diagnoses Admission for vasectomy Z30.2 Concussion S06.0XAA Head injury S09.90XA
--- OUTSIDE RECORDS SUMMARY | 2024-08-21 16:44 | XMS_ITS ---
Author Organization [facility] Address [address] [place] [address] Care Team Providers Care Agricultural Technical Officer Name Role Phone Khari Rosas Primary Care Provider Unav ailable Donnell Hazel Unavailable [phone] Allergies No Known Allergies REASON FOR VISIT Seen Sooner Medications Medication SIG (Take, Route, Fr equency, Duration) Notes Start Date End Date Status Multivitamin - 1 tablet Once a day Unknown Social History Tobacco Use: Social History Observation Description Date Details (start date - stop date) Never Smoker NA - NA Tobacco Use/Smoking Question Answer Notes Are you a: nonsmoker Additional Findings: Tobacco Non-User Current no n-smoker Alcohol Screen Question Answer Notes Did you have a drink containing alcohol in the p ast year? Yes Points 0 Interpretation Negative Tobacco use other than smoking: Question Answer Notes Are you an other tobacco user? No Vital Signs Height 6ft in 02/25/2023 Weight 300 lbs 02/25/2023 BMI 40.68 kg/m2 02/25/2023 Encounters Encounter Location Date Provider Diagnosis [facility] [address] [place] [address] 02/25/2023 Donnell Hazel Plan Of Treatment No Information Progress Notes * Dev BARRYDOB:[birth year] (39 yo M)Acc No.[id number]:02/25/2023 Progress Notes Patient:?Dev BARRY Provider:?Donnell Hazel DPM :1985???Age:37 Y???Sex:Male Audie e:02/25/2023 Address:[address] [place] [address], [place] j[place]son [facility] Pcp:DWAINE Rodríguez Subjective: * Chief Complaints: * ???1. Seen Sooner. * ROS:?General/Constitutional:?Nausea?denies.?Vomiting?denies.?Hunger Thirst?denies.?Loss appetite?denies.?Chills?denies.?Fatigue?denies.?Fever?denies.?Night Sweats?denies.?Unexplained weight loss?denies.?Unexplained weight gain?denies.?HEENTM:?Dentures?denies.?Dizziness?denies.?Glasses/contacts?admits.?Retinopathy?de nies.?Blurred/double vision?denies.?TMJ?denies.?Discharge/drainage?denies.?Implants?denies.?Sore throat?denies.?Dental implants?denies.?Hard of hearing ?denies.?Difficulty chewing/swallowing/speaking?denies.?Nose bleeds?denies.?Sore mouth?denies.?Respiratory:?On Oxygen?denies.?Pneumonia/pleurisy?denies.?Bronchitis?denies.?Emphysema?denies.?C oughing?denies.?Cough blood?denies.?Shortness of breath?denies.?Wheezing?denies.?Cardiovascular:?Pacemaker?denies.?MVP?denies.?WPW?denies.?CHF?denies.?Heart attack?denies.?Septal defect?denies.?Rapid beat?denies.?Chest pain ?denies.?Atrial Fib.?denies.?Murmur/Palpitations?denies.?Gastrointestinal:?Hemorrhoids?denies.?Stomach/Abdominal pain?denies.?Dark blood stool?denies.?Irritable bowel ?denies.?Constipation?denies.?Diarrhea?denies.?Hematology:?Swelling?denies.?Clots?denies.?Varicose Veins?denies.?Bruising?denies.?Bleeding problem?denies.?Genitourinary:?Blood urine?denies.?Frequent/Painfu/urination/bladder control?denies.?Kidney stones?denies.?Infection (UTI)?denies.?Nephropathy?denies.?sex trans dis (STD)?denies.?Prostate?denies.?Musculoskeletal:?Hammertoes?denies.?Bunions?denies.?Back Pain?denies.?Muscle Cramps/ Resting?denies.?Muscle cramps / walking?denies.?Generalized aches and pains?denies.?Weakness?denies.?Integ.:?Laureano?denies.?Scars?denies.?Corns/calluses?denies.?Ingrown nails?denies.?Painful nails?denies.?Open Sores?denies.?Rashes?denies.?Neurologic:?Difficulty sleeping?denies.?Brain disorder?denies.?Numbness?denies.?Balance trouble?denies.?Confusion?denies.?Fainting/blackouts?denies.?Tingling?denies.?Tr emors?denies.? * Medical History:?Chicken pox . * Surgical History:?appendecto my 1998. * Family History:?Paternal Gra nd Father: diagnosed with Diabetic - NIDDM, Unspecified heart disease.? * Social History:?Tobacco Use:?Tobacco Use/Smoking?Are you a:?nonsmoker ?Additional Findings: Tobacco Non-User?Current non-smoker ?Tobacco use other than smoking?Are you an other tobacco user??No ???Drugs/Alcohol:?Drugs?Have you used drugs other than those for medical reasons in the past 12 months??No ?Alcohol Screen?Did you have a drink containing alcohol in the past year??Yes ?Points?0 ?Interpretation?Negative ???Miscellaneous:?Caffeine: yes. ?Children: no. ?Exercise: yes, running. ?Marital status: . 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 * Medications:?Unknown Multivi tamin - Tablet 1 tablet Once a day * Allergies:?N.K.D.A. Objective: * Vitals:?Ht:6ft, Wt:300, BMI: 40.68. Assessment: Plan: * Treatment: * Images: * The named appointment provid er may or may not be the originator of this progress note, and it is not deemed complete until electronically signed by the appointment provider. Sign off status: Pending * Provider:?Donnell Hazel DPM Date:?2022 Generated for Bridget mora/Chau/Shree on:?08/21/2024 04:44 PM EST
--- OUTSIDE RECORDS SUMMARY | 2024-08-21 16:44 | XMS_ITS ---
Author Organization [facility] Address [address] [place] [address] Care Team Providers Care Health Inspector Name Role Phone Khari Rosas Primary Care Provider Unav ailable Donnell Hazel Unavailable [phone] Allergies No Known Allergies REASON FOR VISIT Heel pain Medications Medication SIG (Take, Route, Frequency, Duration) Notes Start Date End Date Status Multivitamin - 1 tablet Once a day Unknown Night Splint AFO - L1930 1 wear at rest for 30 days Not-Taking Social History Tobacco Use: Social History Observation [...] other tobacco user? No Vital Signs Height 6 ft in 03/22/2023 Weight 240 lbs 03/22/2023 BMI 32.55 kg/m2 03/22/2023 Procedures Procedure Date Ordered Date Performed Result Body Sit e 93572,E5837-IHF TENDON SHEATH/LIGAMENT 03/22/2023 N/A Encounters Encounter Location Date Provider Diagnosis [facility] [address] [place] [address] 03/22/2023 Donnell Hazel Plantar fasciitis M72.2 Assessments Encounter Date Diagnosis (ICD Code) Assessment Notes Treatment Notes Treatment Clinical Notes Section Notes 03/22/2023 Plantar fasciitis (ICD-10 - M72.2) Resistant to previous conservative treatment Patient Educated with: RICE THERAPY.pdf (RICE THERAPY.pdf) Patient Educated with: INJECTIONTHERA PY.pdf (INJECTIONTHER APY.pdf) Plan Of Treatment Treatment Notes Assessment Notes Plantar fasciitis Patient Educated wit h: RICE THERAPY.pdf (RICE THERAPY.pdf) Patient Educated with: INJECTIONTHERAPY.pdf (INJECTIONTHERAPY.pdf) Pending Test Test Name Order Date ,P8905-DYZ TENDON SHEATH/LIGAMENT 1 Next Appt Details Follow Up: 4 Weeks, Reason: Procedure Notes * Category Sub-Category Detail Notes Injection Tendon Sheath or Fascia , J 07 Injection 1 RIGHT foot, - Plantar Fascia [...] 0-1) out of 10 Progress Notes * SARWATJAVEDDevDOB:[birth year] (37 yo M)Acc No.[id number]:03/22/2023 Progress Notes Patient:?Dev Siu Britni Provider:?Donnell Hazel DPM :1985???Age:37 Y???Sex:Male Audie e:03/22/2023 Address:[address] [place] [address] Pcp:DWAINE Rodríguez Subjective: * Chief Complaints: * ???Heel pain * HPI: ???Heel pain:?Location:?Proximal plantar aspect of Heel, RIGHT.?Aggrevated:?standing, walking, walking first thing in the morning/after rest , worse at end of the day , exercise , running.?Treatments:?rest , gel cushions , change in shoes , Pre-jason innersoles , JEP-ffarezucfgi-lvnupusk still pending insurance.?Severity/Quality:?Pre-injection procedure pain assessment - ( 8) out of 10.?Misc:?Patient states previous conservative therapy has not provided acceptable relief. Despite previous treatments/efforts, patient continues to relate substantial pain and significant functional disability during activity.? * ROS:?General/Constitutional:?Nausea?denies.?Vomiting?denies.?Hunger Thirst?denies.?Loss appetite?denies.?Chills?denies.?Fatigue?denies.?Fever?denies.?Night Sweats?denies.?Unexplained weight loss?denies.?Unexplained weight gain?denies.?HEENTM:?Dentures?denies.?Dizziness?denies.?Glasses/contacts?admits.?Retinopathy?de nies.?Blurred/double vision?denies.?TMJ?denies.?Discharge/drainage?denies.?Implants?denies.?Sore throat?denies.?Dental implants?denies.?Hard of hearing ?denies.?Difficulty chewing/swallowing/speaking?denies.?Nose bleeds?denies.?Sore mouth?denies.?Respiratory:?On Oxygen?denies.?Pneumonia/pleurisy?denies.?Bronchitis?denies.?Emphysema?denies.?C oughing?denies.?Cough blood?denies.?Shortness of breath?denies.?Wheezing?denies.?Cardiovascular:?Pacemaker?denies.?MVP?denies.?WPW?denies.?CHF?denies.?Heart attack?denies.?Septal defect?denies.?Rapid beat?denies.?Chest pain ?denies.?Atrial Fib.?denies.?Murmur/Palpitations?denies.?Gastrointestinal:?Hemorrhoids?denies.?Stomach/Abdominal pain?denies.?Dark blood stool?denies.?Irritable bowel ?denies.?Constipation?denies.?Diarrhea?denies.?Hematology:?Swelling?denies.?Clots?denies.?Varicose Veins?denies.?Bruising?denies.?Bleeding problem?denies.?Genitourinary:?Blood urine?denies.?Frequent/Painfu/urination/bladder control?denies.?Kidney stones?denies.?Infection (UTI)?denies.?Nephropathy?denies.?sex trans dis (STD)?denies.?Prostate?denies.?Musculoskeletal:?Hammertoes?denies.?Bunions?denies.?Back Pain?denies.?Muscle Cramps/ Resting?denies.?Muscle cramps / walking?denies.?Generalized aches and pains?denies.?Weakness?denies.?Integ.:?Laureano?denies.?Scars?denies.?Corns/calluses?denies.?Ingrown nails?denies.?Painful nails?denies.?Open Sores?denies.?Rashes?denies.?Neurologic:?Difficulty sleeping?denies.?Brain disorder?denies.?Numbness?denies.?Balance trouble?denies.?Confusion?denies.?Fainting/blackouts?denies.?Tingling?denies.?Tr emors?denies.? * Medical History:? * Surgical History:?appendecto my 1997 * Hospitalization/Major Diagno stic Procedure:?Denies Past Hospitalization * Family History:?Paternal Gra nd Father: diagnosed [...] the past year??Yes ?Points?0 ?Interpretation?Negative ???Miscellaneous:?Caffeine: yes. ?no Children. ?Exercise: yes, running. ?Marital status: . 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 * Medications:?Not-Taking/PRNN ight Splint AFO - L1930 1 wear at restNot-Taking/PRN Night Splint AFO - L1930 1 wear at restUnknownMultivitamin - Tablet 1 tablet Once a dayMedication List reviewed and reconciled with the patientUnknown Multivitamin - Tablet 1 tablet Once a dayMedication List reviewed and reconciled with the patient * Allergies:?N.K.D.A.yes[Jacob ramirez Verified] Objective: * Vitals:?Ht: 6 ft, Wt:240, BM I:32.55, Shoe size:13. * Examination: ???Heel Pain: ?INSPECTION:? Pain on Palpation to Plantar Fascia med. and central bands, intrinsic musc., infra-calcaneal bursa, and med calc tubercle , RIGHT foot, No pain: posterior/superior heel, achilles bursa/tendon, sinus tarsi, peroneals, or with lateral heel compression; no limited STJ ROM, calor, or ecchymosis.? Assessment: * Assessment: 1.?Plantar fasciitis - M72.2 (Primary), Resistant to previous conservative treatment? Plan: * Treatment: * Procedures:?Injection:?Tendon Sheath or Fascia?10185, J0702 Injection 1 RIGHT foot, - Plantar Fascia [...] assessment improved at ( 0-1) out of 10.? * Procedure Codes:?61306 INJ T ENDON SHEATH/LIGAMENT, Modifiers: RT J0702 INJ BETAMETHSN ACTAT&SOD PHOSPH-3MG * Preventive Medicine:? ??Counseling:?Heel pain:?Cont Fitness restriction: No 1.5mi run, No 20 meter shuffle run, No 2K speed walk until further notice.? * Follow Up:?4 Weeks * Images: * Sign off status: Completed true * Provider:?Donnell Hazel DPM Date:?2022 Generated for Bridget mora/Chau/Shree on:?08/21/2024 04:44 PM EST History and Physical Notes * HPI (History of Present Illness) Category Sub-Category Detail Notes Category Not es Heel pain Severity/Quality: Pre-injection procedure pain assessment - ( 8) out of 10 Location: Proximal plantar asp ect of Heel, RIGHT Aggravated: standing, walking, w alking first thing in the morning/after rest , worse at end of the day , exercise , running Treatments: rest , gel cushions , change in shoes , Pre-jason innersoles , EFE-cmwskdgvczg-clmhleyu still pending insurance Misc: Patient states previ ous conservative therapy has not provided acceptable relief. Despite previous treatments/efforts, patient continues to relate substantial pain and significant functional disability during activity Examination Category Sub-Category Detail Notes Category Not es Heel Pain INSPECTION: Pain on Palpatio n to Plantar Fascia med. and central bands, intrinsic musc., infra-calcaneal bursa, and med calc tubercle , RIGHT foot, No pain: posterior/superior heel, achilles bursa/tendon, sinus tarsi, peroneals, or with lateral heel compression; no limited STJ ROM, calor, or ecchymosis
--- OUTSIDE RECORDS SUMMARY | 2024-08-21 16:44 | XMS_ITS | Clinical Summary ---
Author Organization [facility] Address [address] [place] [address] Care Team Providers Care Electrode Turner And Finisher Name Role Phone Unavailable Primary Care Provider Unavailabl e Social History Tobacco Use Types Packs/Day Years Used Date Smoking Tobacco: Never Assessed Sex and Gender Information Value Date Recorded Sex Assigned at Not on file Legal Sex Male 11:21 AM EST Gender Identity Not on file Sexual Orientation Not on file Plan of Treatment Health Maintenance Due Date Last Done Comments DTaP,Tdap,and Td Vaccines (1 - Tdap) 2003 Hepatitis B Vaccines (1 of 3 - 19+ 3-dose series) 2003 COVID-19 Vaccine (2023-2 5 season) 2024 Influenza Vaccine (#1) 2024 HIB Vaccines Aged Out No longer eligi ble based on patient's age to complete this topic HPV Vaccines Aged Out No longer eligi ble based on patient's age to complete this topic Hepatitis A Vaccines Aged Out No long er eligible based on patient's age to complete this topic IPV Vaccines Aged Out No longer eligi ble based on patient's age to complete this topic MMR Vaccines Aged Out No longer eligi ble based on patient's age to complete this topic Meningococcal ACWY Vaccine Aged Out N o longer eligible based on patient's age to complete this topic Meningococcal B Vacine Aged Out No lo nger eligible based on patient's age to complete this topic Pneumococcal Vaccine: Pediat rics (0 to 5 Years) and At-Risk Patients (6 to 64 Years) Aged Out No longer eligible b ased on patient's age to complete this topic RSV Immunization Patients Un narda 20 months Aged Out No longer eligible b ased on patient's age to complete this topic Varicella Vaccines Aged Out No longer eligible based on patient's age to complete this topic
--- OUTSIDE RECORDS SUMMARY | 2024-08-21 16:44 | XMS_ITS | Patient Health Record ---
Author Organization [facility] Rebekah moy [place] Address [address] [facility] [place] [address] Care Team Providers Care Fitness Trainer Name Role Phone Khari Rosas Primary Care Provider Unav Donnell Martinez Unavailable [phone] Allergies No Known Allergies Reason For Referral No Information Medications Medication SIG (Take, Route, Frequency, Duration) [...] Are you an other tobacco user? No Plan Of Treatment Pending Test Test Name Order Date X ray : Foot, right 3V 01/26/2023 96327,[id number] TENDON SHEATH/LIGAMENT 1 Insurance Providers Payer Name Payer Address Payer Phone Subscriber Number Group Number Insured Name Patient Relationship to Insured Coverage Start Date Coverage End Date Prime Remote [address] [place] [id number] Dev Siu Self - patient is the insured Medical (General) History Medical History History ICD Code Chicken pox Surgical History Surgery Date(Month/Year) appendectomy 1997
--- OUTSIDE RECORDS SUMMARY | 2024-08-21 16:44 | XMS_ITS ---
Author Organization [facility] Address [address] [place] [address] Care Team Providers Care Kitchen Food Assembler Name Role Phone Khari Rosas Primary Care Provider Unav ailable Donnell Hazel Unavailable [phone] Allergies No Known Allergies REASON FOR VISIT [...] No Vital Signs Height 6 ft in 04/12/2023 Weight 240 lbs 04/12/2023 BMI 32.55 kg/m2 04/12/2023 Encounters Encounter Location Date Provider Diagnosis [facility] [address] [place] [address] 04/12/2023 Donnell Hazel Plantar fasciitis M72.2 Assessments Encounter Date Diagnosis (ICD Code) Assessment Notes Treatment Notes Treatment Clinical Notes Section Notes 04/12/2023 Plantar fasciitis (ICD-10 - M72.2) Response to treatment,Impro vement Plan Of Treatment Next Appt Details Follow Up: prn, Reason: Progress Notes * Dev BARRYDOB:[birth year] (37 yo M)Acc No.[id number]:04/12/2023 Progress Notes Patient:?Dev Barry Provider:?Donnell Hazel DPM :1985???Age:37 Y???Sex:Male Audie e:04/12/2023 Address:[address] [place] [address], [place] [address] Pcp:DWAINE Rodríguez Subjective: * Chief Complaints: * ???Heel pain * HPI: ???Heel pain:?Location:?Proximal plantar aspect of Heel, RIGHT.?Treatments:?rest , gel cushions , change in shoes , Pre-jason innersoles , AFO-nightsplint , corticosteriod injection(1).? * ROS:?General/Constitutional:?Nausea?denies.?Vomiting?denies.?Hunger Thirst?denies.?Loss appetite?denies.?Chills?denies.?Fatigue?denies.?Fever?denies.?Night Sweats?denies.?Unexplained weight loss?denies.?Unexplained [...] reviewed and reconciled with the patient * Allergies:?N.K.D.A.yes[Aller gies Verified] Objective: * Vitals:?Ht:6 ft, Wt:240, BMI :32.55, Shoe size:13, Ht-cm: 182.88 cm, Wt-k.86 kg. * Examination: ???Heel Pain: ?INSPECTION:?States approximately 100% LESS, Pain on Palpation to Plantar Fascia med. and central bands, intrinsic musc., infra-calcaneal bursa, and med calc tubercle , RIGHT foot.? Assessment: * Assessment: 1.?Plantar fasciitis - M72.2 (Primary), Acute problem, Stable (1=3), Response to treatment,Improvement? Plan: * Treatment: * Procedure Codes:? * Preventive Medicine:? ??Counseling:?Discussion:?-13: Office or other outpatient visit for the evaluation and management of an established patient, which required a medically appropriate history and/or examination and LOW level of DECISION MAKING for: 1 STABLE ACUTE UNCOMPLICATED PROBLEM, 2 OR MORE MINOR PROBLEMS, OR 1 STABLE CHRONIC PROBLEM, THAT POSE(S) A LOW RISK FOR MORBIDITY/MORTALITY. The visit on the day of the encounter encompassed interpreting the data and educating the patient as to the nature of their condition, treatment options available according to their individual PMH, meds, allergies, and overall health/living conditions, as well as any potential risks or complications that may occur from a failure to adhere to, and participate in, the recommended course of therapy. The discussion included a complete verbal, and/or written explanation of the examination results, any x-rays taken, the proposed diagnosis, and outline of the treatment plan. A schedule for future care needs was also explained. The patient verbalized an understanding of the instructions at this time and agreed to be an active participant in their treatment. If the patient should think of any questions or concerns after the visit, I have encouraged the patient to call the office.?Heel pain:?Discussed other tx options for the patients condition, Given recent successful results to treatment, the patient wishes to continue with the present plan for their condition. No further PT restrictions, may resume full PT starting 04/12/23.? * Follow Up:?prn * Images: * Sign off status: Completed true * Provider:?Donnell Hazel DPM Date:?2022 Generated for Bridget mora/Chau/Shree on:?08/21/2024 04:44 PM EST History and Physical Notes * HPI (History of Present Illness) Category Sub-Category Detail Notes Category Not es Heel pain Location: Proximal plantar aspect of H eel, RIGHT Treatments: rest , gel cushions , change in shoes , Pre-jason innersoles , AFO- nightsplint , corticosteriod injection(1) Examination Category Sub-Category Detail Notes Category Not es Heel Pain INSPECTION: States approxima tely 100% LESS, Pain on Palpation to Plantar Fascia med. and central bands, intrinsic musc., infra-calcaneal bursa, and med calc tubercle , RIGHT foot
== END 2024-08-21 14:27 | disposition home or self-care (01) ==
LOC: HO.HMCC 13:22
PROVIDERS: PCP Nurse Practitioner Family; Visit Provider Nurse Practitioner Family
DX: S09.90XA Unspecified injury of head, initial encounter (principal); S06.0XAA Concussion with loss of consciousness status unknown, initial encounter; Z30.2 Encounter for sterilization

== ENCOUNTER → 2024-08-21 13:22 | Outpatient (BNVA) | payer OTHER, SELFPAY | PROVIDERS: PCP Nurse Practitioner Family; Visit Provider Nurse Practitioner Family | DX: Z30.2 Encounter for sterilization (principal); S09.90XA Unspecified injury of head, initial encounter; S06.0XAA Concussion with loss of consciousness status unknown, initial encounter ==

== ENCOUNTER 2024-08-31 08:58 | Outpatient (AMB) | payer OTHER, SELFPAY ==
--- NOTE | 2024-08-31 09:15 | MHC.OFFWIV ---
Intake Vital Signs 08/31/24 09:16 Weight 264 lb BP 122/80 Blood Pressure Location Rt brachial Position Sitting Pulse 66 Pulse Source Pulse Oximeter Pulse Oximetry (%) 98 Oxygen Delivery Method Room Air Intake Visit Reasons: EP Rt leg injury Intake Note: Patient here for right leg pain after a injury about 6 weeks ago. Patient Tobacco Use Status: Never used Tobacco Allergies No Known Allergies Allergy (Verified 08/31/24 09:16) Medication List - Last Reconciled 08/31/24 by Kelli Ruiz MD multivitamin 1 tab PO DAILY Do you need a note to return to daycare/school/sports/work: No HPI EP Rt leg injury HPI Details History - The patient is a 39-year-old male presenting with persistent right calf pain following an injury six weeks ago. - Experienced a sensation of the calf exploding leading to an inability to move the foot and toes at the time of the initial incident when walking downstairs. - Subsequent sensitivity in the right leg and disturbance in mobility persisted for weeks, exacerbated by attempts to continue with physical activities like running. - Pain occurs with pressure application to the calf, described as a pulling sensation at the back, while tactile touch remains painless. - Despite the elapsed time since the injury, pain remains, primarily when engaging in activities more strenuous than walking. - Advisement already given to refrain from aggravating activities, stipulating a requirement for a restriction letter due to obligations. Problem List - Achilles Tendinitis Patient Instructions - Refrain from running, jogging, or jumping to avoid aggravating the injury. - Schedule follow-up with an senior talent acquisition specialist for further evaluation. - Obtain a restriction letter to provide to administration indicating treatment and activity limitations. Review of Systems - General: No fever no chills - Neurological: No headaches no dizziness - Ear nose throat: No sore throat no hearing difficulty no ear pain - Cardiovascular: No syncope, no chest pain, no palpitations - Gastrointestinal: No nausea vomiting or diarrhea - Endocrine: No polyuria polydipsia no heat intolerance - Genitourinary: No dysuria , no blood in urine Physical Exam General: No acute distress HEENT: No acute findings Neck: Supple Respiratory system: Able to talk in full sentences, no audible wheeze cardiovascular: S1-S2 regular in rate and rhythm Gastrointestinal: No pain Extremities: Right lower leg sensitive over Achilles tender and muscle, possible Achilles tendon strain, pain on pushing, no rupture no calf pain NUCLEAR PLANT INSTRUMENT TECHNICIAN: Alert awake oriented x3 motor sensory intact Skin: Normal turgor [facility] Medical History Head injury Surgical History History of appendectomy Family History (Reviewed 08/31/24 @ 15: by Kelli Ruiz MD) Paternal Grandfather Heart disease Diabetes Social History Housing: [facility] Alcohol intake: current Alcohol intake frequency: a few times a week Patient Tobacco Use Status: Never used Tobacco e-Cigarette/Vaping Use: Never Used service: Yes Current occupational status: employed Cognitive needs: No Hearing needs: No Vision needs: Yes Physical Exam Vital Signs: Last Vital Signs Pulse 66 08/31/24 09:16 BP 122/80 08/31/24 09:16 Pulse Ox 98 08/31/24 09:16 Oxygen Delivery Method Room Air 08/31/24 09:16 Assessment & Plan Assessment & Plan (1) Achilles tendon injury: Code(s): S86.009A - Unspecified injury of unspecified Achilles tendon, initial encounter Qualifiers: Encounter type: initial encounter Laterality: right Qualified Code(s): S86.001A - Unspecified injury of right Achilles tendon, initial encounter Plan History - The patient is a 39-year-old male presenting with persistent right calf pain following an injury six weeks ago. - Experienced a sensation of the calf exploding leading to an inability to move the foot and toes at the time of the initial incident when walking downstairs. - Subsequent sensitivity in the right leg and disturbance in mobility persisted for weeks, exacerbated by attempts to continue with physical activities like running. - Pain occurs with pressure application to the calf, described as a pulling sensation at the back, while tactile touch remains painless. - Despite the elapsed time since the injury, pain remains, primarily when engaging in activities more strenuous than walking. - Advisement already given to refrain from aggravating activities, stipulating a requirement for a restriction letter due to obligations. Problem List - Achilles Tendinitis Patient Instructions - Refrain from running, jogging, or jumping to avoid aggravating the injury. - Schedule follow-up with an senior talent acquisition specialist for further evaluation. - Obtain a restriction letter to provide to administration indicating treatment and activity limitations. Orders: Referrals Orthopedics Referral S86.009A - Unspecified injury of unspecified Achilles tendon, initial encounter Coding Level of Care Code Est Pt Level 3 (40759) Diagnoses Injury of right Achilles tendon, initial encounter S86.001A Encounter type: initial encounter Laterality: right
[2024-08-31 09:16] VITALS: BP 122/80; PULSE 66; O2SAT 98
--- OUTSIDE RECORDS SUMMARY | 2024-08-31 09:22 | XMS_ITS | Patient Health Record ---
Author Organization [facility] Rebekah moy [place] Address [address] [facility] [place] [address] Care Team Providers Care Dental Intern Name Role Phone Khari Rosas Primary Care Provider Unav Donnell Martinez Unavailable [phone] Allergies No Known Allergies Reason For Referral [...] X ray : Foot, right 3V 01/26/2023 94770,[id number] TENDON SHEATH/LIGAMENT 1 Insurance Providers Payer Name Payer Address Payer Phone Subscriber Number Group Number Insured Name Patient Relationship to Insured Coverage Start Date Coverage End Date Prime Remote [address] [place] [address] [phone] [id number] Dev Siu Self - patient is the insured Medical (General) History Medical History History ICD Code Chicken pox Surgical History Surgery Date(Month/Year) appendectomy 1997
--- OUTSIDE RECORDS SUMMARY | 2024-08-31 09:22 | XMS_ITS ---
Author Organization [facility] Address [address] [place] [address] Care Team Providers Care Will Call Order Clerk Name Role Phone Khari Rosas Primary Care Provider Unav ailable Donnell Hazel Unavailable [phone] Allergies No Known Allergies REASON FOR VISIT [...] Ordered Date Performed Result Body Sit e 93322,V4459-KWT TENDON SHEATH/LIGAMENT 03/22/2023 N/A Encounters Encounter Location Date Provider Diagnosis [facility] [address] [place] [address] 03/22/2023 Donnell Hazel Plantar fasciitis M72.2 Assessments [...] (INJECTIONTHERAPY.pdf) Pending Test Test Name Order Date ,W8291-XNG TENDON SHEATH/LIGAMENT 1 Next Appt Details Follow [...] Notes * SARWATJAVEDDevDOB:[birth year] (37 yo M)Acc No.[id number]:03/22/2023 Progress Notes Patient:?Dev Siu Britni Provider:?Donnell Hazel DPM :1985???Age:37 Y???Sex:Male Audie e:03/22/2023 Address:[address] [place] [address] Pcp:DWAINE Rodríguez Subjective: * Chief Complaints: * ???Heel pain * HPI: ???Heel pain:?Location:?Proximal plantar aspect of Heel, RIGHT.?Aggrevated:?standing, walking, walking first thing in the morning/after rest , worse at end of the day , exercise , running.?Treatments:?rest , gel cushions , change in shoes , Pre-jason innersoles , KPV-opmoaqwvvit-wlulrhks still pending insurance.?Severity/Quality:?Pre-injection procedure pain assessment - [...] Plan: * Treatment: * Procedures:?Injection:?Tendon Sheath or Fascia?93369, J0702 Injection 1 RIGHT foot, - Plantar [...] ( 0-1) out of 10.? * Procedure Codes:?16285 INJ T ENDON SHEATH/LIGAMENT, Modifiers: RT J0702 INJ BETAMETHSN ACTAT&SOD PHOSPH-3MG * Preventive Medicine:? ??Counseling:?Heel pain:?Cont Fitness restriction: No 1.5mi run, No 20 meter shuffle run, No 2K speed walk until further notice.? * Follow Up:?4 Weeks * Images: * Sign off status: Completed true * Provider:?Donnell Hazel DPM Date:?2022 Generated for Bridget mora/Chau/Shree on:?08/31/2024 09:22 AM EDT History and Physical Notes * HPI (History [...] change in shoes , Pre-jason innersoles , HCA-wptuorntzde-mbxwfczj still pending insurance Misc: Patient states previ [...]
--- OUTSIDE RECORDS SUMMARY | 2024-08-31 09:22 | XMS_ITS ---
Author Organization [facility] Address [address] [place] [address] Care Team Providers Care Splitter Machine Name Role Phone Khari Rosas Primary Care Provider Unav ailable Donnell Hazel Unavailable [phone] Allergies No Known Allergies REASON FOR VISIT [...] 04/12/2023 Encounters Encounter Location Date Provider Diagnosis [facility] [address] [place] [address] 04/12/2023 Donnell Hazel Plantar fasciitis M72.2 Assessments Encounter Date Diagnosis (ICD Code) Assessment Notes Treatment Notes Treatment Clinical Notes Section Notes 04/12/2023 Plantar fasciitis (ICD-10 - M72.2) Response to treatment,Impro vement Plan Of Treatment Next Appt Details Follow Up: prn, Reason: Progress Notes * Dev BARRYDOB:[birth year] (37 yo M)Acc No.[id number]:04/12/2023 Progress Notes Patient:?Dev Barry Provider:?Donnell Hazel DPM :1985???Age:37 Y???Sex:Male Audie e:04/12/2023 Address:[address] [place] [address], [place] [address] Pcp:DWAINE Rodríguez Subjective: * Chief Complaints: * [...]
--- OUTSIDE RECORDS SUMMARY | 2024-08-31 09:22 | XMS_ITS | Clinical Summary ---
Author Organization [facility] Address [address] [place] [address] Care Team Providers Care Environmental Health Safety Manager Name Role Phone Unavailable Primary Care Provider [...]
--- OUTSIDE RECORDS SUMMARY | 2024-08-31 09:22 | XMS_ITS | Continuity of Care Document ---
Author Name [facility] Organization [facility] Care Team Providers Care Printed Circuit Boards Solder Leveler Name Role Phone [facility] Unavailable Unavailable Immunizations Combined list of available immunizations from the Department of Defense and Veterans Affairs facilities. Immunization Series Date Given Administered By Site Reaction Lot Number CVX Code Drug Metal Box Maker Status Comments Source influenza, injectable, quadrivalent- pf 2022 150 GlaxoSmithKli ne complet ed influenza , injectabl e, quadrival ent-pf 05/25/23 Given Ambulat ory Pharmac y tetanus, diphtheria, acellular pertu is 2022 [id number] sanofi pasteur complet ed tetanus, diphtheri a, acellular pertussis 07/15/22 Given Ambulat ory Pharmac y Influenza, inj, MDCK, quadrivalent- pf 2021 171 Seqirus complet ed Influenza , inj, MDCK, quadrival ent-pf 03/16/22 Given Ambulat ory Pharmac y COVID Vaccine Pfizer 2020 [id number] PFIZER complet ed COVID Vaccine Pfizer 05/24/21 Given Ambulat ory Pharmac y COVID Vaccine Pfizer 2020 [id number] PFIZER complet ed COVID Vaccine Pfizer 05/24/21 Given Ambulat ory Pharmac y influenza, seasonal, injectable 2020 [id number] 141 Seqirus complet ed influenza , seasonal, injectabl e 03/26/21 Given Ambulat ory Pharmac y influenza, seasonal, injectable 2020 [id number] 141 Seqirus complet ed influenza , seasonal, injectabl e 03/26/21 Given Ambulat ory Pharmac y Influenza, inj, MDCK, quadrivalent- pf 2020 171 complet ed Influenza , inj, MDCK, quadrival ent-pf 03/26/21 Given Ambulat ory Pharmac y COVID Vaccine Moderna 2020 [id number] 207 complet ed COVID Vaccine Moderna 07/25/20 Given Ambulat ory Pharmac y COVID Vaccine Moderna 2020 [id number] 207 complet ed COVID Vaccine Moderna 07/25/20 Given Ambulat ory Pharmac y COVID Vaccine Moderna 2020 [id number] 207 complet ed COVID Vaccine Moderna 06/26/20 Given Ambulat ory Pharmac y COVID Vaccine Moderna 2020 [id number] 207 complet ed COVID Vaccine Moderna 06/26/20 Given Ambulat ory Pharmac y influenza virus vaccine, inactivated 2019 88 Seqirus complet ed influenza virus vaccine, inactivat ed 04/14/20 Given Ambulat ory Pharmac y influenza, injectable, quadrivalent- pf 2019 TRANSCR [id number] 150 complet ed influenza , injectabl e, quadrival ent-pf 04/14/20 Given Ambulat ory Pharmac y influenza virus vaccine, inactivated 2019 88 Seqirus complet ed influenza virus vaccine, inactivat ed 04/14/20 Given Ambulat ory Pharmac y influenza, injectable, quadrivalent- pf 2019 TRANSCR IBED 150 complet ed influenza , injectabl e, quadrival ent-pf 04/14/20 Given Ambulat ory Pharmac y Influenza, inj, MDCK, quadrivalent- pf 2019 171 complet ed Influenza , inj, MDCK, quadrival ent-pf 04/14/20 Given Ambulat ory Pharmac y influenza, seasonal, injectable-pf 2018 [id number] 140 Seqirus complet ed influenza , seasonal, injectabl e-pf 04/12/19 Given Ambulat ory Pharmac y influenza, injectable, quadrivalent- pf 2018 150 complet ed influenza , injectabl e, quadrival ent-pf 04/12/19 Given Ambulat ory Pharmac y influenza, seasonal, injectable-pf 2018 [id number] 140 Seqirus complet ed influenza , seasonal, injectabl e-pf 04/12/19 Given Ambulat ory Pharmac y anthrax vaccine 2018 [id number] 24 Emergent Biosolutions complet ed anthrax vaccine 10/22/18 Given Ambulat ory Pharmac y anthrax vaccine 2018 [id number] 24 Emergent Biosolutions complet ed anthrax vaccine 10/22/18 Given Ambulat ory Pharmac y typhoid Vi capsular polysaccharid e vac 2018 [id number] 101 sanofi pasteur complet ed typhoid Vi capsular polysacch aride vac 09/07/18 Given Ambulat ory Pharmac y anthrax vaccine 2018 [id number] 24 Emergent Biosolutions complet ed anthrax vaccine 09/07/18 Given Ambulat ory Pharmac y poliovirus vaccine, inactivated 2018 [id number] 10 sanofi pasteur complet ed polioviru s vaccine, inactivat ed 09/07/18 Given Ambulat ory Pharmac y typhoid Vi capsular polysaccharid e vac 2018 [id number] 101 sanofi pasteur complet ed typhoid Vi capsular polysacch aride vac 09/07/18 Given Ambulat ory Pharmac y anthrax vaccine 2018 [id number] 24 Emergent [employer] complet ed anthrax vaccine 09/07/18 Given Ambulat ory Pharmac y poliovirus vaccine, inactivated 2018 [id number] 10 sanofi pasteur complet ed polioviru s vaccine, inactivat ed 09/07/18 Given Ambulat ory Pharmac y influenza, injectable, quadrivalent- pf 2017 [id number] 150 Seqirus complet ed influenza , injectabl e, quadrival ent-pf 04/22/18 Given Ambulat ory Pharmac y influenza, injectable, quadrivalent 2016 [id number] 158 complet ed influenza , injectabl e, quadrival ent 04/06/17 Given Ambulat ory Pharmac y measles/mumps /rubella virus vaccine 2016 [id number] Merck & Company Inc complet ed measles/m umps/rube lla virus vaccine 11/07/16 Given Ambulat ory Pharmac y measles/mumps /rubella virus vaccine 2016 [id number] 03 Merck & Company Inc complet ed measles/m umps/rube lla virus vaccine 08/21/16 Given Ambulat ory Pharmac y influenza, seasonal, injectable-pf 2015 [id number] 140 Seqirus complet ed influenza , seasonal, injectabl e-pf 04/03/16 Given Ambulat ory Pharmac y influenza, seasonal, injectable-pf 2014 [id number] 140 CSL Behring complet ed influenza , seasonal, injectabl e-pf 03/23/15 Given Ambulat ory Pharmac y Influenza, injectable, MDCK-pf 2013 [id number] 153 Novartis Pharmaceutica complet ed Influenza , injectabl e, MDCK-pf 03/24/14 Given Ambulat ory Pharmac y hepatitis A adult vaccine 2013 [id number] 52 GlaxoSmithKli ne complet ed hepatitis A adult vaccine 10/21/13 Given Ambulat ory Pharmac y influenza, seasonal, injectable-pf 2012 140 complet ed influenza , seasonal, injectabl e-pf 05/15/13 Given Ambulat ory Pharmac y hepatitis A adult vaccine 2012 [id number] [facility] hepatitis A adult vaccine 07/06/12 Given Ambulat ory Pharmac y tuberculin purified protein derivative 2012 [id number] 96 [facility] complet ed tuberculi n purified protein derivativ e 06/30/12 Given Ambulat ory Pharmac y influenza, seasonal, injectable-pf 2012 [id number] 140 CSL Behring complet ed influenza , seasonal, injectabl e-pf 06/30/12 Given Ambulat ory Pharmac y meningococcal A,C,Y,W-135 (MCV4P) 2012 [id number] 114 sanofi pasteur complet ed meningoco ccal A,C,Y,W-1 35 (MCV4P) 06/30/12 Given Ambulat ory Pharmac y adenovirus vaccine, live 2012 [id number] 143 Teva Pharmaceutica complet ed adenoviru s vaccine, live 06/30/12 Given Ambulat ory Pharmac y poliovirus vaccine, inactivated 2012 [id number] 10 sanofi pasteur complet ed polioviru s vaccine, inactivat ed 06/30/12 Given Ambulat ory Pharmac y tetanus, diphtheria, acellular pertu is 2012 [id number] [facility] tet[facility], diphtheri a, acellular pertussis 06/30/12 Given Ambulat ory Pharmac y tuberculin purified protein derivative 2012 [id number] 96 [facility] complet ed tuberculi n purified protein derivativ e 06/30/12 Given Ambulat ory Pharmac y Results Combined list of recent chemistry, hematology and other laboratory results from Department of Defense and Veterans Affairs, ranging from 15 months to all on record, depending upon the facility. Order Name Results Value Reference Range Date Interpretation Specimen Comments Source Infectiou s Disease HIV-1/O/2 Non-Reac tive 1 (08/27/23 9:18 AM) 08/26 N Interpretiv e Data: INTERPRETAT ION: This method is a screening procedure for the detection of HIV p24 Antigen and Antibodies to HIV-1, including Group O, and/or HIV-2. NON-REACTIV E: HIV-1 antigen and HIV-1 / HIV-2 antibodies were not detected. No laboratory evidence of HIV infection. A negative test result does not exclude the possibility of exposure to or infection with HIV. HIV antibodies and/or p24 antigen may be undetectabl e in some stages of the infection and in some clinical conditions. If acute HIV infection is suspected, consider submitting another specimen to a reference laboratory for HIV-1 RNA. SCREEN REACTIVE - CONFIRMATIO N TO FOLLOW: Possible presence of HIV-1antibo dies, HIV-2 antibodies and/or HIV-1 p24 antigen. Specimen will reflex to the confirmatio n testing that fulfills the Center for Disease Control and Prevention' s HIV diagnostic algorithm. Refer to [facility] Lab Guide for additional information : [email or web address]://[email or web address]. [facility]/ [email or web address]/kx5/EPIL ab/[email or web address]/la b_guide.asp x Testing performed by [employer] joyce ruvalcaba. [facility] Miscellan eous Sendouts Repository Sample Received (08/27/23 9:18 AM) 08/26 N [facility] Encounters Combined list of: 1) Encounters from Department of Veterans Affairs facilities going backup to the last 18 months, not all VA inpatient encounters are included; 2) Encounters from the Department of [facility] facilities going backup to 280 months. Location Location Details Encounter Type Encounter Number Reason For Visit Attending Provider ADM Date DC Date Status Disposition Source 8344R-439 AMDS Between Visit [id number] 11/03 Discharge Disposition: Home or Self Care 8344R-4 39 AMDS 8344R-439 AMDS Outpatient [id number] ALLA LAINEZ 12/18 Discharge Disposition: Home or Self Care 8344R-4 39 AMDS 8344R-439 AMDS Between Visit [id number] 02/07 Discharge Disposition: Home or Self Care 8344R-4 39 AMDS 8344R-439 AMDS Between Visit [id number] 02/12 Discharge Disposition: Home or Self Care 8344R-4 39 AMDS Procedures Combined list of: 1) Procedures from Department of Veterans Affairs facilities going back up to thelast 18 months, not all [place] non-surgical procedures are included; 2) All procedures from the Department of Defense facilities. Procedure Procedure Type Code Date Perfomer Comments Sourc e No data available for this section Ambulatory P harmacy Assessment and Plan Combined list of future care activities from Department of Defense and Veterans [facility] facilities (e.g., assessment and plan notes, appointments, orders, and referrals). Additional future care activities may be listed in the Plan of Care section. Result Assessment and Plan Date Source Assessment and Plan No data available for this section 08/31/2024 Ambulatory Pharmacy Functional Status Combined list of recent functional and cognitive assessments recorded at Department of Defense and Veterans Affairs (OR).VA Functional [place] Measurement (FIM) Scale: 1 = Total Assistance (Subject = 0% +), 2 = Maximal Assistance (Subject = 25% +), 3 = Moderate Assistance (Subject = 50% +), 4 = Minimal Assistance (Subject = 75% +), 5 = Supervision, 6 = Modified [place] (Device), 7 = Complete [place] (Timely, Safely). Assessment Date/Time Source Assessment Type Assessment Skill Assessment Score Assessment Details No data available for this section
== END 2024-08-31 09:51 | disposition home or self-care (01) ==
PROVIDERS: PCP Nurse Practitioner Family; Visit Provider Internal Medicine
DX: S86.001A Unspecified injury of right Achilles tendon, initial encounter (principal)

== ENCOUNTER → 2024-08-31 08:58 | Outpatient (BNVA) | payer OTHER, SELFPAY | PROVIDERS: PCP Nurse Practitioner Family; Visit Provider Internal Medicine | DX: S86.001A Unspecified injury of right Achilles tendon, initial encounter (principal) | CPT/HCPCS: 99212 ==

== ENCOUNTER 2024-09-20 09:57 | Outpatient (AMB) | payer OTHER, SELFPAY ==
--- NOTE | 2024-09-20 10:02 | A.OFFVIS_ITS ---
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 Patient was [place] [facility] [place] [facility] on 08/31/24 due to right knee pain s/p injury 6 weeks ago. Patient presents with forms that need to be completed. Patient reports he was walking down the stairs carrying an item when he felt his calf exploded. States severe pain happened on two separate occasions when he was going down stairs and up an incline. He has a constant dull pain in his calf. No numbness or tingling. He uses a brace that has been helping. NO previous tx. 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 Seven weeks ago, he experienced an acute, intense pain in the right calf while descending stairs barefoot. Since this event, a persistent dull ache has been present. Initial self-care measures included rest and reduced activity, but recurrences of pain constrained mobility. He reports a past event of knee pain on the same side about a year ago. He feels as though his calf pain was not improving therefore he presented to the walk-in clinic where he was referred to our office for ortho eval. [facility] Medical History Head injury Surgical History History of appendectomy Family History Paternal Grandfather Heart disease Diabetes Social History Housing: Condominium Alcohol intake: current Alcohol intake frequency: a few times a week Patient Tobacco Use Status: Never used Tobacco e-Cigarette/Vaping Use: Never Used service: Yes Current occupational status: employed Cognitive needs: No Hearing needs: No Vision needs: Yes Review of Systems Const All systems reviewed & are unremarkable except as noted in HPI and below Physical Exam Vital Signs: BMI result Body Mass Index 35.5 Const General: cooperative and no acute distress Orientation/consciousness: patient oriented x3 Resp Effort & Inspection: normal respiratory effort and able to speak in complete sentences Cardio Peripheral pulses: Peripheral pulses 2+ throughout Neuro General: patient oriented x3 Extrem Other: Right lower extremity tenderness along the medial aspect of the muscle belly of the calf. No pain or palpable defect along the Achilles tendon. Assessment & Plan Assessment & Plan (1) Strain of gastrocnemius tendon of right lower extremity: Code(s): S86.111A - Strain of other muscle(s) and tendon(s) of posterior muscle group at lower leg level, right leg, initial encounter Category: Medical Plan: I discussed with the patient that his symptoms are consistent with a right gastrocnemius strain. I explained the typical progression of these injuries and the importance of physical therapy in preventing adhesions and restoring muscle function. The patient was advised to continue using supportive measures, such as specialized footwear and compression wear. I will submit a referral for physical therapy at a facility previously utilized by the patient. I addressed the need for sustained rehabilitation over six to eight weeks and advised monitoring symptom improvements during this period. Additionally, we discussed potential underlying musculoskeletal imbalances that could exacerbate the situation, particularly given the patient's concurrent knee issue. Follow-up instructions and expectations for symptom progression were outlined. Orders: Orders PT Evaluation and Treatment Today S86.111A - Strain of other muscle(s) and tend on(s) of posterior muscle group at lower leg level, right leg, initial encounter Coding Level of Care Code Est Pt Level 3 (25086) Complex EM visit Add On G2211 Diagnoses Strain of gastrocnemius tendon of right lower extremity S86.111A
[2024-09-20 10:08] VITALS: BMI 35.5
--- OUTSIDE RECORDS SUMMARY | 2024-09-20 10:40 | XMS_ITS | Patient Health Record ---
Author Organization [facility] Rebekah moy [place] Address [address] [place] [address] Care Team Providers Care Retail Cashier Associate Name Role Phone Khari Rosas Primary Care Provider Unav Donnell Martinez Unavailable [phone] Allergies No Known Allergies Reason For Referral [...] X ray : Foot, right 3V 01/26/2023 36021,S3827-BFH TENDON SHEATH/LIGAMENT 1 Insurance Providers Payer Name Payer Address Payer Phone Subscriber Number Group Number Insured Name Patient Relationship to Insured Coverage Start Date Coverage End Date [employer] Remote [address] [place] [id number] Dev Siu Self - patient is the insured Medical (General) History Medical History History ICD Code Chicken pox Surgical History Surgery Date(Month/Year) appendectomy 1997
--- OUTSIDE RECORDS SUMMARY | 2024-09-20 10:40 | XMS_ITS ---
Author Organization [facility] Address [address] [place] [address] Care Team Providers Care Ground Crewman Name Role Phone Khari Rosas Primary Care Provider Unav ailable Donnell Hazel Unavailable [phone] Allergies No Known Allergies REASON FOR VISIT [...] Ordered Date Performed Result Body Sit e 90989,[id number] TENDON SHEATH/LIGAMENT 03/22/2023 N/A Encounters Encounter Location Date Provider Diagnosis [facility] [address] [place] [address] 03/22/2023 Donnell Hazel Plantar fasciitis M72.2 Assessments [...] ([email or web address].pdf) Pending Test Test Name Order Date ,[id number] TENDON SHEATH/LIGAMENT 1 Next Appt Details Follow [...] Notes * SARWATJAVEDDevDOB:[birth year] (37 yo M)Acc No.[id number]:03/22/2023 Progress Notes Patient:?Dev Siu Britni Provider:?Donnell Hazel DPM :1985???Age:37 Y???Sex:Male Audie e:03/22/2023 Address:[address] [place] [address] Pcp:DWAINE Rodríguez Subjective: * Chief Complaints: * ???Heel pain * HPI: ???Heel pain:?Location:?Proximal plantar aspect of Heel, RIGHT.?Aggrevated:?standing, walking, walking first thing in the morning/after rest , worse at end of the day , exercise , running.?Treatments:?rest , gel cushions , change in shoes , Pre-jason innersoles , [id number]-grkjqoyn still pending insurance.?Severity/Quality:?Pre-injection procedure pain assessment - [...] Plan: * Treatment: * Procedures:?Injection:?Tendon Sheath or Fascia?96702, J0702 Injection 1 RIGHT foot, - Plantar [...] ( 0-1) out of 10.? * Procedure Codes:?79855 INJ T ENDON SHEATH/LIGAMENT, Modifiers: RT J0702 INJ BETAMETHSN ACTAT&SOD PHOSPH-3MG * Preventive Medicine:? ??Counseling:?Heel pain:?Cont Fitness restriction: No 1.5mi run, No 20 meter shuffle run, No 2K speed walk until further notice.? * Follow Up:?4 Weeks * Images: * Sign off status: Completed true * Provider:?Donnell Hazel DPM Date:?2022 Generated for Bridget mora/Chau/Shree on:?09/20/2024 10:39 AM EDT History and Physical Notes * [...] change in shoes , Pre-jason innersoles , [id number] still pending insurance Misc: Patient states previ [...]
--- OUTSIDE RECORDS SUMMARY | 2024-09-20 10:40 | XMS_ITS | Continuity of Care Document ---
Author Name [facility] Organization [facility] Care Team Providers Care Ready Mix Truck Driver Name Role Phone [facility] Unavailable Unavailable Immunizations Combined list of available immunizations from the Department of Defense and Veterans Affairs facilities. Immunization Series Date Given Administered By Site Reaction Lot Number CVX Code Drug Drill Rig Operator Status Comments Source influenza, injectable, quadrivalent- pf 2022 150 GlaxoSmithKli ne complet ed influenza , injectabl e, quadrival ent-pf 05/25/23 Given Ambulat ory Pharmac y tetanus, diphtheria, acellular pertu is 2022 [id number] sanofi pasteur complet ed tetanus, diphtheri a, acellular pertussis 07/15/22 Given Ambulat ory Pharmac y Influenza, inj, MDCK, quadrivalent- pf 2021 171 Seqirus complet ed Influenza , inj, MDCK, quadrival ent-pf 03/16/22 Given Ambulat ory Pharmac y COVID Vaccine Pfizer 2020 [id number] 208 PFIZER complet ed COVID Vaccine Pfizer 05/24/21 Given Ambulat ory Pharmac y COVID Vaccine Pfizer 2020 [id number] 208 PFIZER complet ed COVID Vaccine Pfizer 05/24/21 Given Ambulat ory Pharmac y influenza, seasonal, injectable 2020 [id number] 141 Seqirus complet ed influenza , seasonal, injectabl e 03/26/21 Given Ambulat ory Pharmac y influenza, seasonal, injectable 2020 [id number] 141 Seqirus complet ed influenza , seasonal, injectabl e 03/26/21 Given Ambulat ory Pharmac y Influenza, inj, MDCK, quadrivalent- pf 2020 171 complet ed Influenza , inj, MDCK, quadrival ent-pf 03/26/21 Given Ambulat ory Pharmac y COVID Vaccine Moderna 2020 [id number] 207 complet ed COVID Vaccine Moderna 07/25/20 Given Ambulat ory Pharmac y COVID Vaccine Moderna 2020 [id number] 207 complet ed COVID Vaccine Moderna 07/25/20 Given Ambulat ory Pharmac y COVID Vaccine Moderna 2020 [id number] 207 complet ed COVID Vaccine Moderna 06/26/20 Given Ambulat ory Pharmac y COVID Vaccine Moderna 2020 [id number] 207 complet ed COVID Vaccine Moderna 06/26/20 [...] ory Pharmac y influenza, seasonal, injectable-pf 2018 [id number] 140 Seqirus complet ed influenza , seasonal, injectabl e-pf 04/12/19 Given Ambulat ory Pharmac y influenza, injectable, quadrivalent- pf 2018 150 complet ed influenza , injectabl e, quadrival ent-pf 04/12/19 Given Ambulat ory Pharmac y influenza, seasonal, injectable-pf 2018 [id number] 140 Seqirus complet ed influenza , seasonal, injectabl e-pf 04/12/19 Given Ambulat ory Pharmac y anthrax vaccine 2018 [id number] 24 Emergent Biosolutions complet ed anthrax vaccine 10/22/18 Given Ambulat ory Pharmac y anthrax vaccine 2018 [id number] 24 Emergent [employer]olutions complet ed anthrax vaccine 10/22/18 Given Ambulat ory Pharmac y typhoid Vi capsular polysaccharid e vac 2018 [id number] 101 sanofi pasteur complet ed typhoid Vi capsular polysacch aride vac 09/07/18 Given Ambulat ory Pharmac y anthrax vaccine 2018 [id number] 24 Emergent Biosolutions complet ed anthrax vaccine 09/07/18 Given Ambulat ory Pharmac y poliovirus vaccine, inactivated 2018 [id number] 10 sanofi pasteur complet ed polioviru s vaccine, inactivat ed 09/07/18 Given Ambulat ory Pharmac y typhoid Vi capsular polysaccharid e vac 2018 [id number] 101 sanofi pasteur complet ed typhoid Vi capsular polysacch aride vac 09/07/18 Given Ambulat ory Pharmac y anthrax vaccine 2018 [id number] 24 Emergent [employer]olutions complet ed anthrax vaccine 09/07/18 Given Ambulat ory Pharmac y poliovirus vaccine, inactivated 2018 [id number] 10 sanofi pasteur complet ed polioviru s vaccine, inactivat ed 09/07/18 Given Ambulat ory Pharmac y influenza, injectable, quadrivalent- pf 2017 [id number] 150 Seqirus complet ed influenza , injectabl e, quadrival ent-pf 04/22/18 Given Ambulat ory Pharmac y influenza, injectable, quadrivalent 2016 [id number] complet ed influenza , injectabl e, quadrival ent 04/06/17 Given Ambulat ory Pharmac y measles/mumps /rubella virus vaccine 2016 [id number] Merck & Company Inc complet ed measles/m umps/rube lla virus vaccine 11/07/16 Given Ambulat ory Pharmac y measles/mumps /rubella virus vaccine 2016 [id number] 03 Merck & Company Inc complet ed measles/m umps/rube lla virus vaccine 08/21/16 Given Ambulat ory Pharmac y influenza, seasonal, injectable-pf 2015 [id number] 140 Seqirus complet ed influenza , seasonal, injectabl e-pf 04/03/16 Given Ambulat ory Pharmac y influenza, seasonal, injectable-pf 2014 [id number] 140 CSL Behring complet ed influenza , seasonal, injectabl e-pf 03/23/15 Given Ambulat ory Pharmac y Influenza, injectable, MDCK-pf 2013 [id number] 153 Novartis Pharmaceutica complet ed Influenza , injectabl e, MDCK-pf 03/24/14 Given Ambulat ory Pharmac y hepatitis A adult vaccine 2013 [id number] GlaxoSmithKli ne complet ed hepatitis A adult vaccine 10/21/13 Given Ambulat ory Pharmac y influenza, seasonal, injectable-pf 2012 140 complet ed influenza , seasonal, injectabl e-pf 05/15/13 Given Ambulat ory Pharmac y hepatitis A adult vaccine 2012 [id number] 52 GlaxWellSpan Healthithi ne complet ed hepatitis A adult vaccine 07/06/12 Given Ambulat ory Pharmac y tuberculin purified protein derivative 2012 [id number] 96 [facility] complet ed tuberculi n purified protein derivativ e 06/30/12 Given Ambulat ory Pharmac y influenza, seasonal, injectable-pf 2012 [id number] 140 CSL Behring complet ed influenza , seasonal, injectabl e-pf 06/30/12 Given Ambulat ory Pharmac y meningococcal A,C,Y,W-135 (MCV4P) 2012 [id number] 114 sanofi pasteur complet ed meningoco ccal A,C,Y,W-1 35 (MCV4P) 06/30/12 Given Ambulat ory Pharmac y adenovirus vaccine, live 2012 [id number] 143 Teva Pharmaceutica complet ed adenoviru s vaccine, live 06/30/12 Given Ambulat ory Pharmac y poliovirus vaccine, inactivated 2012 [id number] 10 sanofi pasteur complet ed polioviru s vaccine, inactivat ed 06/30/12 Given Ambulat ory Pharmac y tetanus, diphtheria, acellular pertu is 2012 [id number] 115 [facility] complet ed tetanus, diphtheri a, acellular pertussis 06/30/12 Given Ambulat ory Pharmac y tuberculin purified protein derivative 2012 [id number] 96 [facility] complet ed tuberculi n purified protein derivativ [...] Prevention' s HIV diagnostic algorithm. Refer to [facility] Lab Guide for additional information : [email or web address]/ [email or web address] x Testing performed by [employer] joyce ruvalcaba. [facility] EP[facility] Miscellan eous Sendouts Repository Sample Received (08/27/23 9:18 AM) 08/26 N [facility] Encounters Combined list of: 1) Encounters from Department of Veterans Affairs facilities going backup to the last 18 months, not all VA inpatient encounters are included; 2) Encounters from the Department of [facility] facilities going backup to 280 months. Location Location Details Encounter Type Encounter Number Reason For Visit Attending Provider ADM Date DC Date Status Disposition Source 8344R-439 AMDS Between Visit [id number] 11/03 Discharge Disposition: Home or Self Care 8344R-4 39 AMDS 8344R-439 AMDS Outpatient [id number] ALLA LAINEZ 12/18 Discharge Disposition: Home or Self Care 8344R-4 39 AMDS 8344R-439 AMDS Between Visit [id number] 02/07 Discharge Disposition: Home or Self Care 8344R-4 39 AMDS 8344R-439 AMDS Between Visit [id number] 02/12 Discharge Disposition: Home or Self Care 8344R-4 39 AMDS 8344R-439 AMDS Between Visit [id number] 09/06 Discharge Disposition: Home or Self Care 8344R-4 39 AMDS Procedures Combined list of: 1) Procedures from Department of Veterans Affairs facilities going back up to theadventhealtht 18 months, not all [place] non-surgical procedures are included; 2) All procedures from the Department of [facility] facilities. Procedure Procedure Type Code Date Perfomer Comments Sourc e No data available for this section Ambulatory P harmacy Assessment and Plan Combined list of future care activities from Department of Defense and Veterans [facility] facilities (e.g., assessment and plan notes, appointments, orders, and referrals). Additional future care activities may be listed in the Plan of Care section. Result Assessment and Plan Date Source Assessment and Plan No data available for this section 09/20/2024 Ambulatory Pharmacy Functional Status Combined list of recent functional and cognitive assessments recorded at Department of Defense and Veterans Affairs ([place]).VA Functional [place] Measurement (FIM) Scale: 1 = Total Assistance (Subject = 0% +), 2 = Maximal Assistance (Subject = 25% +), 3 = Moderate Assistance (Subject = 50% +), 4 = Minimal Assistance (Subject = 75% +), 5 = Supervision, 6 = Modified [place] (Device), 7 = Complete [place] (Timely, Safely). Assessment Date/Time Source Assessment Type Assessment Skill Assessment Score Assessment Details No data available for this section
--- OUTSIDE RECORDS SUMMARY | 2024-09-20 10:40 | XMS_ITS ---
Author Organization [facility] Address [address] [place] [address] Care Team Providers Care Production Line Mechanic Name Role Phone Khari Rosas Primary Care Provider Unav ailable Donnell Hazel Unavailable [phone] Allergies No Known Allergies REASON FOR VISIT [...] 04/12/2023 Encounters Encounter Location Date Provider Diagnosis [facility] [address] [place] [address] 04/12/2023 Donnell Hazel Plantar fasciitis M72.2 Assessments Encounter Date Diagnosis (ICD Code) Assessment Notes Treatment Notes Treatment Clinical Notes Section Notes 04/12/2023 Plantar fasciitis (ICD-10 - M72.2) Response to treatment,Impro vement Plan Of Treatment Next Appt Details Follow Up: prn, Reason: Progress Notes * Dev BARRYDOB:[birth year] (37 yo M)Acc No.[id number]:04/12/2023 Progress Notes Patient:?Dev Barry Provider:?Donnell Hazel DPM :1985???Age:37 Y???Sex:Male Audie e:04/12/2023 Address:[address] [place] [address], [place] [address] Pcp:DWAINE Rodríguez Subjective: * Chief Complaints: * [...]
--- OUTSIDE RECORDS SUMMARY | 2024-09-20 10:40 | XMS_ITS | Clinical Summary ---
Author Organization [facility] ity Address [address] [place] [address] Care Team Providers Care General Internal Medicine Doctor Name Role Phone Unavailable Primary Care Provider [...]
== END 2024-09-20 10:28 | disposition home or self-care (01) ==
PROVIDERS: PCP Nurse Practitioner Family; Visit Provider Physician Assistant
DX: S86.111A Strain of other muscle(s) and tendon(s) of posterior muscle group at lower leg level, right leg, initial encounter (principal)
CPT/HCPCS: 99213

== ENCOUNTER → 2024-09-20 09:57 | Outpatient (BNVA) | payer OTHER, SELFPAY | PROVIDERS: PCP Nurse Practitioner Family; Visit Provider Physician Assistant | DX: S86.111A Strain of other muscle(s) and tendon(s) of posterior muscle group at lower leg level, right leg, initial encounter (principal); X58.XXXA Exposure to other specified factors, initial encounter; Y93.01 Activity, walking, marching and hiking; Y92.9 Unspecified place or not applicable; Y99.9 Unspecified external cause status | CPT/HCPCS: 99212 ==

== ENCOUNTER 2024-10-01 10:25 | Outpatient (AMB) | payer OTHER, SELFPAY ==
[2024-10-01 10:33] VITALS: BP 112/74; PULSE 71; O2SAT 98; BMI 40.0
--- NOTE | 2024-10-01 10:33 | A.OFFPC_ITS ---
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 Required: No Accompanied by: Self / Same As Patient Allergies No Known Allergies Allergy (Verified 10/01/24 10:33) Tobacco use date assessed: 10/01/24 Dental Screening Dental Screen Date: 10/01/24 Did you have a dental visit in the last 12 months?: Yes Did you have a dental problem in the last 6 months where you did not have access to dental care?: No Was dental information given to patient?: Patient has dentist HPI Annual PE HPI Details History of Present Illness The patient is a 39-year-old male presenting with concerns about ongoing symptoms associated with a past concussion, in addition to undergoing a routine physical examination. In January, he suffered a concussion during a exercise, following which he developed photophobia and intermittent migraine headaches. These symptoms have been persistent but fluctuate in their occurrenc e. The patient acknowledges that migraines and sensitivity to light remain bothersome but denies any recent progression or exacerbation. His comprehension of the possibility of lasting symptoms from the concussion has been made clear during the visit. He denies other systemic symptoms and psychological concerns, consolidating focus on managing his post-concussion issues. Obesity is noted, and no new symptoms or exacerbation of the present symptoms were reported at this consultation. Health Maintenance Social History Review of Systems - Cardiovascular: Denies chest pain. - Respiratory: Denies shortness of breat h. - Gastrointestinal: Denies abdominal audrey n, bloody stool, constipation, diarrhea. - Genitourinary: Denies urinary issues. - Psychiatric: Denies suicidal ideation, homicidal ideation. Physical Exam General: Cooperative, healthy appearing, comfortable, no acute distress and well developed, obese Orientation: Patient oriented x3 Limitations: No limitations Head: Normal to inspection Ears: Hearing grossly normal bilaterally Nose: Normal external nose present Face and sinus: Normal facial exam Eyes: Appearance normal, both eyes and all related structures Neck: Normal visual inspection and Yes full ROM Respiratory: Normal respiratory effort and able to speak in complete sentences. Clear to auscultation bilaterally Cardiovascular: Regular rate and rhythm. Normal S1 and S2 GI: Normal to inspection. Soft to palpation and nontender Skin: Several moles without irregular borders noted on the back Neuro: Patient oriented x3 Extremities: Normal to inspection Results - Tests: Pending evaluation, a CAT scan is planned in the near future. Plan A CAT scan is planned soon to evaluate the ongoing symptoms related to the patient's post-concussion condition. I advised the patient about the expected duration of post-concussion symptoms which might persist, emphasizing the importance of weight management in the context of his obesity, although specific interventions or strategies were not outlined during this visit. Longitudinal monitoring and follow-up were discussed to assess symptom progression and response to future interventions. Discussion Notes I discussed the nature of post-concussion syndrome with the patient, highlighting the typical duration and variability of symptoms over time. The need for a CAT scan was emphasized to rule out further complications. I provided reassurance regarding the natural resolution of symptoms over time and encouraged vigilance towards weight management. Although no new interventions were started today, I indicated the value of continued monitoring. Anticipatory guidance was provided with an understanding of the chronicity of the symptoms and the necessity of the upcoming imaging study. Patient Instructions - Follow the recommended plan for the up coming CAT scan. - Monitor and report any new or worsenin g symptoms promptly. - Engage in weight management practices as feasible. - Schedule follow-ups as discussed to as sess health and symptom progression. [facility] Medical History Head injury Surgical History History of appendectomy Family History Paternal Grandfather Heart disease Diabetes Social History Housing: Condominium Alcohol intake: current Alcohol intake frequency: a few times a week Patient Tobacco Use Status: Never used Tobacco e-Cigarette/Vaping Use: Never Used service: Yes Current occupational status: employed Current occupation: Cognitive needs: No Hearing needs: No Vision needs: Yes Questionnaire PHQ-9 Over the last 2 weeks, how often have you been bothered by any of the following problems? 1. Little interest or pleasure in doing things: not at all 2. Feeling down, depressed, or hopeless: not at all 3. Trouble falling or staying asleep, or sleeping too much: several days 4. Feeling tired or having little energy: more than half the days 5. Poor appetite or overeating: more than half the days 6. Feeling bad about yourself - or that you are a failure or have let yourself or your family down: not at all 7. Trouble concentrating on things, such as reading the newspaper or watching television: several days 8. Moving or speaking so slowly that other people could have noticed. Or the opposite - being so fidgety or restless that you have been moving around a lot more than usual: not at all 9. Thoughts that you would be better off or of hurting yourself in some way: not at all Total score: 6 Depression Screening Interpretation: Negative Depression Screening Done: Yes 16087 - PHQ-9 Billing: Yes Source: Developed by Drs. You Mchugh, Malia Cast, Choco Enriquez and colleagues, with an educational elmer from [employer]. Thrive Questionnaire Date Thrive assessed: 10/01/24 I am a: Patient What is your living situation today?: I have a steady place to live Within the past 12 months, did the food you bought not last and you didn't have the money to get more?: Never true Within the past 12 months, did you worry whether your food would run out before you got money to buy more?: Never true Do you have trouble paying for medicines?: No Do you have trouble getting transportation to medical appointments?: No Do you have trouble paying your heating and electricity bill?: No Do you have trouble taking care of your child, family member or friend?: No Do you have trouble with day-to-day activities such as bathing, preparing meals, shopping, managing finances, etc.?: No Are you currently unemployed and looking for a job?: No Are you interested in more education?: No Please select the resources that you would like help with: None Currently or been in a relationship where the following occur: No concerns reported THRIVE Score: 0 AUDIT C Alcohol Use Questionnaire (AUDIT-C) 1. How often do you have a drink containing alcohol?: 2-3 times a week 2. How many drinks containing alcohol do you have on a typical day when you are drinking?: 3 or 4 3. How often do you have six or more drinks on one occasion?: Never Total Score: 4 Score Reviewed/Action Taken: Yes NARA-7 AMB Questionnaire NARA-7 Date NARA - 7 assessed: 10/01/24 Feeling nervous, anxious, or on edge: 1 = Several days Not being able to stop or control worryin = Several days Worrying too much about different things: 1 = Several days Trouble relaxin = Several days Being so restless that it is hard to sit still: 1 = Several days Becoming easily annoyed or irritable: 1 = Several days Feeling afraid as if something awful might happen: 0 = Not at all Total NARA-7 score (0-4 normal; 5-9 mild; 10-14 moderate; 15-21 severe): 6 Source: Developed by Drs. You Mchugh, Malia Cast, Choco Enriquez and colleagues, with an educational elmer from [employer]. NARA-7 Assessment Billing NARA-7 Assessment Tool: NARA-7 Assessment 22447 Physical exam (Primary Care) Vital Signs: Last Vital Signs Pulse 71 10/01/24 10:33 BP 112/74 10/01/24 10:33 Pulse Ox 98 10/01/24 10:33 BMI result Body Mass Index 40.0 Tobacco/Smoking Status: Tobacco use Status Tobacco use date assessed 10/01/24 10/01/24 10:34 Patient Tobacco Use Status Never used Tobacco 10/01/24 10:34 e-Cigarette/Vaping Use Never Used 10/01/24 10:34 PHQ-9: PHQ-9 Score PHQ-9: Total score 6 10/01/24 10:46 Depression Screening Interpretation: Negative Thrive Assessment: Date of Thrive Assessment Date Thrive assessed 10/01/24 10/01/24 10:34 Currently or been in a relationship where the following occur: No concerns reported Coding Level of Care Code Est Pt Prev Care 40-64y(80124) Diagnoses Physical exam Z00.00 Head injury S09.90XA Concussion S06.0XAA Additional Codes NARA-7 Assessment Billing - NARA-7 Assessment Tool: NARA-7 Assessment 80449 ([id number]) PHQ-9 - 46781 - PHQ-9 Billing: Yes ([id number]) Assessment & Plan Assessment & Plan (1) Physical exam: Code(s): Z00.00 - Encounter for general adult medical examination without abnormal findings Category: Medical (2) Head injury: Code(s): S09.90XA - Unspecified injury of head, initial encounter Category: Medical (3) Concussion: Code(s): S06.0XAA - Concussion with loss of consciousness status unknown, initial encounter Category: Medical Plan . Orders: Orders Complete Blood Count Auto Diff Today Z00.00 - Encounter for general adult medical examination without abnormal findings Comprehensive [place]. Panel Fast Today Z00.00 - Encounter for general adult medical examination without abnormal findings TSH reflex Free T4 Today Z00.00 - Encounter for general adult medical examination without abnormal findings Testosterone, Free/Total Today Z00.00 - Encounter for general adult medical examination without abnormal findings UA CC w/rflx Micro + Cult Today Z00.00 - Encounter for general adult medical examination without abnormal findings Lipid Panel Today Z00.00 - Encounter for general adult medical examination without abnormal findings
--- OUTSIDE RECORDS SUMMARY | 2024-10-01 11:54 | XMS_ITS | Patient Health Record ---
Author Organization [facility] [place] Address [address] [facility] [place] [address] Care Team Providers Care Network Internship Name Role Phone Khari Rosas Primary Care Provider Unav Donnell Martinez Unavailable [phone] Allergies No Known Allergies Reason For Referral [...] X ray : Foot, right 3V 01/26/2023 [id number] TENDON SHEATH/LIGAMENT 1 Insurance Providers Payer Name Payer Address Payer Phone Subscriber Number Group Number Insured Name Patient Relationship to Insured Coverage Start Date Coverage End Date [employer] [address] [place] [id number] Dev Siu Self - patient is the insured Medical (General) History Medical History History ICD Code Chicken pox Surgical History Surgery Date(Month/Year) appendectomy 1997
--- OUTSIDE RECORDS SUMMARY | 2024-10-01 11:55 | XMS_ITS ---
Author Organization [facility] Address [address] [place] [address] Care Team Providers Care Business Transformation Consultant Name Role Phone Khari Rosas Primary Care Provider Unav ailable Donnell Hazel Unavailable [phone] Allergies No Known Allergies REASON FOR VISIT [...] 04/12/2023 Encounters Encounter Location Date Provider Diagnosis [facility] [address] [place] [address] 04/12/2023 Donnell Hazel Plantar fasciitis M72.2 Assessments Encounter Date Diagnosis (ICD Code) Assessment Notes Treatment Notes Treatment Clinical Notes Section Notes 04/12/2023 Plantar fasciitis (ICD-10 - M72.2) Response to treatment,Impro vement Plan Of Treatment Next Appt Details Follow Up: prn, Reason: Progress Notes * Dev BARRYDOB:[birth year] (37 yo M)Acc No.[id number]:04/12/2023 Progress Notes Patient:?Dev Barry Provider:?Donnell Hazel DPM :1985???Age:37 Y???Sex:Male Audie e:04/12/2023 Address:[address] [place] [address], [place] [address] Pcp:DWAINE Rodríguez Subjective: * Chief Complaints: * [...] Hazel DPM Date:?2022 Generated for Bridget mora/Chau/Shree on:?10/01/2024 11:54 AM EDT History and Physical Notes * [...]
--- OUTSIDE RECORDS SUMMARY | 2024-10-01 11:55 | XMS_ITS | Continuity of Care Document ---
Author Name [facility] Organization [facility] Care Team Providers Care Real Estate Subagent Name Role Phone [facility] Unavailable Unavailable Immunizations Combined list of available immunizations from the Department of Defense and Veterans Affairs facilities. Immunization Series Date Given Administered By Site Reaction Lot Number CVX Code Drug Shade Cloth Finisher Status Comments Source influenza, injectable, quadrivalent- pf 2022 150 GlaxoSmithKli ne complet ed influenza , injectabl e, quadrival ent-pf 05/25/23 Given Ambulat ory Pharmac y tetanus, diphtheria, acellular pertu is 2022 [id number] sanofi pasteur complet ed tetanus, diphtheri a, acellular pertussis 07/15/22 Given Ambulat ory Pharmac y Influenza, inj, MDCK, quadrivalent- pf 2021 171 Seqirus complet ed Influenza , inj, MDCK, quadrival ent-pf 03/16/22 Given Ambulat ory Pharmac y COVID Vaccine Pfizer 2020 [id number] 208 PFIZER complet ed COVID Vaccine Pfizer 05/24/21 Given Ambulat ory Pharmac y COVID Vaccine Pfizer 2020 [id number] 208 PFIZER complet ed COVID Vaccine Pfizer 05/24/21 Given Ambulat ory Pharmac y influenza, seasonal, injectable 2020 [id number] 141 Seqirus complet ed influenza , seasonal, injectabl e 03/26/21 Given Ambulat ory Pharmac y influenza, seasonal, injectable 2020 [id number] 141 Seqirus complet ed influenza , seasonal, injectabl e 03/26/21 Given Ambulat ory Pharmac y Influenza, inj, MDCK, quadrivalent- pf 2020 171 complet ed Influenza , inj, MDCK, quadrival ent-pf 03/26/21 Given Ambulat ory Pharmac y COVID Vaccine Moderna 2020 [id number] 207 complet ed COVID Vaccine Moderna 07/25/20 Given Ambulat ory Pharmac y COVID Vaccine Moderna 2020 [id number] 207 complet ed COVID Vaccine Moderna 07/25/20 Given Ambulat ory Pharmac y COVID Vaccine Moderna 2020 [id number] 207 complet ed COVID Vaccine Moderna 06/26/20 Given Ambulat ory Pharmac y COVID Vaccine Moderna 2020 [id number] 207 complet ed COVID Vaccine Moderna 06/26/20 [...] ory Pharmac y influenza, seasonal, injectable-pf 2018 [id number] 140 Seqirus complet ed influenza , seasonal, injectabl e-pf 04/12/19 Given Ambulat ory Pharmac y influenza, injectable, quadrivalent- pf 2018 150 complet ed influenza , injectabl e, quadrival ent-pf 04/12/19 Given Ambulat ory Pharmac y influenza, seasonal, injectable-pf 2018 [id number] 140 Seqirus complet ed influenza , seasonal, injectabl e-pf 04/12/19 Given Ambulat ory Pharmac y anthrax vaccine 2018 [id number] 24 Emergent Biosolutions complet ed anthrax vaccine 10/22/18 Given Ambulat ory Pharmac y anthrax vaccine 2018 [id number] 24 Emergent Biosolutions complet ed anthrax vaccine 10/22/18 Given Ambulat ory Pharmac y typhoid Vi capsular polysaccharid e vac 2018 [id number] 101 sanofi pasteur complet ed typhoid Vi capsular polysacch aride vac 09/07/18 Given Ambulat ory Pharmac y anthrax vaccine 2018 [id number] 24 Emergent Biosolutions complet ed anthrax vaccine 09/07/18 Given Ambulat ory Pharmac y poliovirus vaccine, inactivated 2018 [id number] 10 sanofi pasteur complet ed polioviru s vaccine, inactivat ed 09/07/18 Given Ambulat ory Pharmac y typhoid Vi capsular polysaccharid e vac 2018 [id number] 101 sanofi pasteur complet ed typhoid Vi capsular polysacch aride vac 09/07/18 Given Ambulat ory Pharmac y anthrax vaccine 2018 [id number] 24 Emergent Biosolutions complet ed anthrax vaccine 09/07/18 Given Ambulat ory Pharmac y poliovirus vaccine, inactivated 2018 [id number] 10 sanofi pasteur complet ed polioviru s vaccine, inactivat ed 09/07/18 Given Ambulat ory Pharmac y influenza, injectable, quadrivalent- pf 2017 [id number] 150 Seqirus complet ed influenza , injectabl e, quadrival ent-pf 04/22/18 Given Ambulat ory Pharmac y influenza, injectable, quadrivalent 2016 [id number] 158 complet ed influenza , injectabl e, quadrival ent 04/06/17 Given Ambulat ory Pharmac y measles/mumps /rubella virus vaccine 2016 [id number] 03 Merck & Company Inc complet ed measles/m umps/rube lla virus vaccine 11/07/16 Given Ambulat ory Pharmac y measles/mumps /rubella virus vaccine 2016 [id number] 03 Merck & Company Inc complet ed measles/m umps/rube lla virus vaccine 08/21/16 Given Ambulat ory Pharmac y influenza, seasonal, injectable-pf 2015 [id number] 140 Seqirus complet ed influenza , seasonal, injectabl e-pf 04/03/16 Given Ambulat ory Pharmac y influenza, seasonal, injectable-pf 2014 [id number] 140 CSL Behring complet ed influenza , seasonal, injectabl e-pf 03/23/15 Given Ambulat ory Pharmac y Influenza, injectable, MDCK-pf 2013 [id number] 153 Novartis Pharmaceutica complet ed Influenza , injectabl e, MDCK-pf 03/24/14 Given Ambulat ory Pharmac y hepatitis A adult vaccine 2013 [id number] 52 GlaxoSmithKli ne complet ed hepatitis A adult vaccine 10/21/13 Given Ambulat ory Pharmac y influenza, seasonal, injectable-pf 2012 140 complet ed influenza , seasonal, injectabl e-pf 05/15/13 Given Ambulat ory Pharmac y hepatitis A adult vaccine 2012 [id number] 52 [facility] ed hepatitis A adult vaccine 07/06/12 Given Ambulat ory Pharmac y tuberculin purified protein derivative 2012 [id number] 96 [facility] complet ed tuberculi n purified protein derivativ e 06/30/12 Given Ambulat ory Pharmac y influenza, seasonal, injectable-pf 2012 [id number] 140 CSL Behring complet ed influenza , seasonal, injectabl e-pf 06/30/12 Given Ambulat ory Pharmac y meningococcal A,C,Y,W-135 (MCV4P) 2012 [id number] 114 sanofi pasteur complet ed meningoco ccal A,C,Y,W-1 35 (MCV4P) 06/30/12 Given Ambulat ory Pharmac y adenovirus vaccine, live 2012 [id number] 5 143 Teva Pharmaceutica complet ed adenoviru s vaccine, live 06/30/12 Given Ambulat ory Pharmac y poliovirus vaccine, inactivated 2012 [id number] 10 sanofi pasteur complet ed polioviru s vaccine, inactivat ed 06/30/12 Given Ambulat ory Pharmac y tetanus, diphtheria, acellular pertu is 2012 [id number] [facility] tetanus, diphtheri a, acellular pertussis 06/30/12 Given Ambulat ory Pharmac y tuberculin purified protein derivative 2012 [id number] 96 [facility] complet ed tuberculi n purified protein [...] Prevention' s HIV diagnostic algorithm. Refer to [facility] Lab Guide for additional information : [email or web address]://[email or web address]. [facility]/ kj/kx5/EPIL ab/[email or web address] [email or web address] x Testing performed by [employer] joyce ruvalcaba. 5600A-U [facility]FS[facility] EPILAB Miscellan eous Sendouts Repository Sample Received (08/27/23 9:18 AM) 08/26 N 5600A-U [facility] EPILAB Encounters Combined list of: 1) Encounters from Department of Veterans Affairs facilities going backup to the last 18 months, not all VA inpatient encounters are included; 2) Encounters from the Department of [facility] facilities going backup to 280 months. Location Location Details Encounter Type Encounter Number Reason For Visit Attending Provider ADM Date DC Date Status Disposition Source 8344R-439 AMDS Outpatient [id number] ALLA FATOU 12/18 Discharge Disposition: Home or Self Care 8344R-4 39 AMDS 8344R-439 AMDS Between Visit [id number] 02/07 Discharge Disposition: Home or Self Care 8344R-4 39 AMDS 8344R-439 AMDS Between Visit [id number] 02/12 Discharge Disposition: Home or Self Care 8344R-4 39 AMDS 8344R-439 AMDS Between Visit [id number] 09/06 Discharge Disposition: Home or Self Care 8344R-4 39 AMDS 8344R-439 AMDS Between Visit [id number] 09/22 Discharge Disposition: Home or Self Care 8344R-4 39 AMDS Procedures Combined list of: 1) Procedures from [facility] facilities [facility], not all [place] non-surgical procedures are included; 2) All procedures from the Department of [facility] facilities. Procedure Procedure Type Code Date Perfomer Comments Sourc e No data available for this section Ambulatory P harmacy Assessment and Plan Combined list of future care activities from Department of Defense and [facility] facilities (e.g., assessment and plan notes, appointments, orders, and referrals). Additional future care activities may be listed in the Plan of Care section. Result Assessment and Plan Date Source Assessment and Plan No data available for this section 10/01/2024 Ambulatory Pharmacy Functional Status Combined list of recent functional and cognitive assessments recorded at Department of Defense and [facility] Affairs ([place]).VA Functional [place] Measurement (FIM) Scale: 1 = Total Assistance (Subject = 0% +), 2 = Maximal Assistance (Subject = 25% +), 3 = Moderate Assistance (Subject = 50% +), 4 = Minimal Assistance (Subject = 75% +), 5 = Supervision, 6 = Modified [place] (Device), 7 = Complete [place] (Timely, Safely). Assessment Date/Time Source Assessment Type Assessment Skill Assessment Score Assessment Details No data available for this section
--- OUTSIDE RECORDS SUMMARY | 2024-10-01 11:55 | XMS_ITS | Clinical Summary ---
Author Organization [facility] ity Address [address] [place] [address] Care Team Providers Care Supervising Film Or Videotape Editor Name Role Phone Unavailable Primary Care Provider [...] Vaccine (2023-2 5 season) 2024 Influenza Vaccine (Season Ended) 2025 HIB Vaccines Aged Out No longer eligi [...] age to complete this topic Meningococcal B Vaccine Aged Out No l onger eligible based on patient's age to complete [...]
== END 2024-10-01 11:15 | disposition home or self-care (01) ==
PROVIDERS: PCP Nurse Practitioner Family; Visit Provider Nurse Practitioner Family
DX: Z00.00 Encounter for general adult medical examination without abnormal findings (principal); S09.90XA Unspecified injury of head, initial encounter; S06.0XAA Concussion with loss of consciousness status unknown, initial encounter

== ENCOUNTER → 2024-10-01 10:25 | Outpatient (BNVA) | payer OTHER, SELFPAY | PROVIDERS: PCP Nurse Practitioner Family; Visit Provider Nurse Practitioner Family | DX: Z00.00 Encounter for general adult medical examination without abnormal findings (principal); S06.0XAD Concussion with loss of consciousness status unknown, subsequent encounter; X58.XXXD Exposure to other specified factors, subsequent encounter | CPT/HCPCS: 96127 ==

== ENCOUNTER 2024-10-05 13:39 | Outpatient (REF) | payer OTHER, SELFPAY ==
--- NOTE | ~2024-10-05 | CT_ITS ---
EXAMINATION: CT HEAD WITHOUT IV CONTRAST HISTORY: S09.90XA - Unspecified injury of head, initial encounter. TECHNIQUE: Unenhanced helical CT of the head was performed per standard departmental protocol. Coronal and sagittal reformats of the head were also evaluated. One or more of the following techniques was used for dose reduction: Automated exposure control, adjustment of the mA and/or kV according to patient size, use of iterative reconstruction technique. DLP: 819 mGy-cm COMPARISON: There are no prior studies for comparison. FINDINGS: BRAIN: The brain parenchyma is unremarkable. There is normal johnson/white differentiation. The ventricular system is normal in size and configuration. There is no mass effect or midline shift. No intra- or extra-axial fluid collections are identified. SINUSES: The visualized paranasal sinuses are clear. The mastoid air cells and middle ear cavities are well pneumatized. ORBITS: The visualized orbits are unremarkable. BONES/SOFT TISSUES: The extracranial soft tissues are unremarkable. The calvarium is intact. No suspicious lytic or sclerotic lesions. CT/CT head/brain wo IV con IMPRESSION: Unremarkable unenhanced head CT. Electronically signed by: You Anand MD 10/05/2024 02:43 PM EDT
--- OUTSIDE RECORDS SUMMARY | 2024-10-05 14:03 | XMS_ITS | Continuity of Care Document ---
Author Name [facility] Organization [facility] Care Team Providers Care Watchmaking Teacher Name Role Phone [facility] Unavailable Unavailable Immunizations Combined list of available immunizations from the Department of Defense and Veterans Affairs facilities. Immunization Series Date Given Administered By Site Reaction Lot Number CVX Code Drug Cloth Classer Status Comments Source influenza, injectable, quadrivalent- pf 2022 150 GlaxoSmithKli ne complet ed influenza , injectabl e, quadrival ent-pf 05/25/23 Given Ambulat ory Pharmac y tetanus, diphtheria, acellular pertu is 2022 [id number] 115 sanofi pasteur complet ed tetanus, diphtheri a, acellular pertussis 07/15/22 Given Ambulat ory Pharmac y Influenza, inj, MDCK, quadrivalent- pf 2021 171 Seqirus complet ed Influenza , inj, MDCK, quadrival ent-pf 03/16/22 Given Ambulat ory Pharmac y COVID Vaccine Pfizer 2020 [id number] 208 PFIZER complet ed COVID Vaccine Pfizer 05/24/21 Given Ambulat ory Pharmac y COVID Vaccine Pfizer 2020 [id number] 208 PFIZER complet ed COVID Vaccine Pfizer 05/24/21 Given Ambulat ory Pharmac y influenza, seasonal, injectable 2020 [id number] 141 Seqirus complet ed influenza , seasonal, injectabl e 03/26/21 Given Ambulat ory Pharmac y influenza, seasonal, injectable 2020 [id number] 141 Seqirus complet ed influenza , seasonal, injectabl e 03/26/21 Given Ambulat ory Pharmac y Influenza, inj, MDCK, quadrivalent- pf 2020 171 complet ed Influenza , inj, MDCK, quadrival ent-pf 03/26/21 Given Ambulat ory Pharmac y COVID Vaccine Moderna 2020 [id number] 207 complet ed COVID Vaccine Moderna 07/25/20 Given Ambulat ory Pharmac y COVID Vaccine Moderna 2020 [id number] 207 complet ed COVID Vaccine Moderna 07/25/20 Given Ambulat ory Pharmac y COVID Vaccine Moderna 2020 [id number] 207 complet ed COVID Vaccine Moderna 06/26/20 Given Ambulat ory Pharmac y COVID Vaccine Moderna 2020 [id number] 207 complet ed COVID Vaccine Moderna 06/26/20 [...] ory Pharmac y influenza, seasonal, injectable-pf 2018 [id number] 505 140 Seqirus complet ed influenza , seasonal, injectabl e-pf 04/12/19 Given Ambulat ory Pharmac y influenza, injectable, quadrivalent- pf 2018 150 complet ed influenza , injectabl e, quadrival ent-pf 04/12/19 Given Ambulat ory Pharmac y influenza, seasonal, injectable-pf 2018 [id number] 505 140 Seqirus complet ed influenza , seasonal, injectabl e-pf 04/12/19 Given Ambulat ory Pharmac y anthrax vaccine 2018 [id number] 24 Emergent Biosolutions complet ed anthrax vaccine 10/22/18 Given Ambulat ory Pharmac y anthrax vaccine 2018 [id number] 24 Emergent [employer] complet ed anthrax vaccine 10/22/18 Given Ambulat ory Pharmac y typhoid Vi capsular polysaccharid e vac 2018 [id number] 101 sanofi pasteur complet ed typhoid Vi capsular polysacch aride vac 09/07/18 Given Ambulat ory Pharmac y anthrax vaccine 2018 [id number] 24 Emergent [employer] complet ed anthrax vaccine 09/07/18 Given Ambulat ory Pharmac y poliovirus vaccine, inactivated 2018 [id number] 10 sanofi pasteur complet ed polioviru s vaccine, inactivat ed 09/07/18 Given Ambulat ory Pharmac y typhoid Vi capsular polysaccharid e vac 2018 [id number] 101 sanofi pasteur complet ed typhoid Vi capsular polysacch aride vac 09/07/18 Given Ambulat ory Pharmac y anthrax vaccine 2018 [id number] 24 Emergent [employer] complet ed anthrax vaccine 09/07/18 Given Ambulat ory Pharmac y poliovirus vaccine, inactivated 2018 [id number] 10 sanofi pasteur complet ed polioviru s vaccine, inactivat ed 09/07/18 Given Ambulat ory Pharmac y influenza, injectable, quadrivalent- pf 2017 [id number] 150 Seqirus complet ed influenza , injectabl e, quadrival ent-pf 04/22/18 Given Ambulat ory Pharmac y influenza, injectable, quadrivalent 2016 [id number] 158 complet ed influenza , injectabl e, quadrival ent 04/06/17 Given Ambulat ory Pharmac y measles/mumps /rubella virus vaccine 2016 [id number] 03 Merck & Company Inc complet ed measles/m umps/rube lla virus vaccine 11/07/16 Given Ambulat ory Pharmac y measles/mumps /rubella virus vaccine 2016 [id number] 03 Merck & Company Inc complet ed measles/m umps/rube lla virus vaccine 08/21/16 Given Ambulat ory Pharmac y influenza, seasonal, injectable-pf 2015 [id number] 140 Seqirus complet ed influenza , seasonal, injectabl e-pf 04/03/16 Given Ambulat ory Pharmac y influenza, seasonal, injectable-pf 2014 [id number] 140 CSL Behring complet ed influenza , seasonal, injectabl e-pf 03/23/15 Given Ambulat ory Pharmac y Influenza, injectable, MDCK-pf 2013 [id number] 153 Novartis Pharmaceutica complet ed Influenza , injectabl e, MDCK-pf 03/24/14 Given Ambulat ory Pharmac y hepatitis A adult vaccine 2013 [id number] 52 GlaxoSmithKli ne complet ed hepatitis A adult vaccine 10/21/13 Given Ambulat ory Pharmac y influenza, seasonal, injectable-pf 2012 140 complet ed influenza , seasonal, injectabl e-pf 05/15/13 Given Ambulat ory Pharmac y hepatitis A adult vaccine 2012 [id number] [facility] hepatitis A adult vaccine 07/06/12 Given Ambulat ory Pharmac y tuberculin purified protein derivative 2012 [id number] [address] [facility] complet ed tuberculi n purified protein derivativ e 06/30/12 Given Ambulat ory Pharmac y influenza, seasonal, injectable-pf 2012 [id number] 140 CSL Behring complet ed influenza , seasonal, injectabl e-pf 06/30/12 Given Ambulat ory Pharmac y meningococcal A,C,Y,W-135 (MCV4P) 2012 [id number] 114 sanofi pasteur complet ed meningoco ccal A,C,Y,W-1 35 (MCV4P) 06/30/12 Given Ambulat ory Pharmac y adenovirus vaccine, live 2012 [id number] 5 143 Teva Pharmaceutica complet ed adenoviru s vaccine, live 06/30/12 Given Ambulat ory Pharmac y poliovirus vaccine, inactivated 2012 [id number] 10 sanofi pasteur complet ed polioviru s vaccine, inactivat ed 06/30/12 Given Ambulat ory Pharmac y tetanus, diphtheria, acellular pertu is 2012 [id number] [facility] ed tetanus, diphtheri a, acellular pertussis 06/30/12 Given Ambulat ory Pharmac y tuberculin purified protein derivative 2012 [id number] [address] [facility] complet ed tuberculi n purified protein [...] Prevention' s HIV diagnostic algorithm. Refer to [facility] Lab Guide for additional information : [email or web address]. [facility]/ kj/kx5/EPIL ab/Pages/la [email or web address] x Testing performed by [employer] [facility]ce ruvalcaba. 5600A-U [facility] EPILAB Miscellan eous Sendouts Repository Sample Received (08/27/23 9:18 AM) 08/26 N 5600A-U SAFS[facility] EPILAB Encounters Combined list of: 1) Encounters from Department of Veterans Affairs facilities going backup to the last 18 months, not all VA inpatient encounters are included; 2) Encounters from the Department of [facility] facilities going backup to 280 months. Location Location Details Encounter Type Encounter Number Reason For Visit Attending Provider ADM Date DC Date Status Disposition Source 8344R-439 AMDS Between Visit [id number] 02/07 Discharge Disposition: Home or Self Care 8344R-4 39 AMDS 8344R-439 AMDS Between Visit [id number] 02/12 Discharge Disposition: Home or Self Care 8344R-4 39 AMDS 8344R-439 AMDS Between Visit [id number] 09/06 Discharge Disposition: Home or Self Care 8344R-4 39 AMDS 8344R-439 AMDS Between Visit [id number] 09/22 Discharge Disposition: Home or Self Care 8344R-4 39 AMDS 8344R-439 AMDS Between Visit [id number] 10/01 Discharge Disposition: Home or Self Care 8344R-4 39 AMDS Procedures Combined list of: 1) Procedures from [facility], not all [place] non-surgical procedures are included; 2) All procedures from the [facility] of [facility] facilities. Procedure Procedure Type Code Date Perfomer Comments Sourc e No data available for this section Ambulatory P harmacy Assessment and Plan Combined list of future care activities from [facility] of [facility] and [facility] facilities (e.g., assessment and plan notes, appointments, orders, and referrals). Additional future care activities may be listed in the Plan of Care section. Result Assessment and Plan Date Source Assessment and Plan No data available for this section 10/05/2024 Ambulatory Pharmacy Functional Status Combined list of recent functional and cognitive assessments recorded at [facility] of Defense and [facility] ([place]VA Functional [place] Measurement (FIM) Scale: 1 = Total Assistance (Subject = 0% +), 2 = Maximal Assistance (Subject = 25% +), 3 = Moderate Assistance (Subject = 50% +), 4 = Minimal Assistance (Subject = 75% +), 5 = Supervision, 6 = Modified [place] (Device), 7 = Complete [place] (Timely, Safely). Assessment Date/Time Source Assessment Type Assessment Skill Assessment Score Assessment Details No data available for this section
--- OUTSIDE RECORDS SUMMARY | 2024-10-05 14:03 | XMS_ITS | Patient Health Record ---
Author Organization [facility] Rebekah moy [place] Address [address] [facility] [place] [address] Care Team Providers Care Steam Engineer Name Role Phone Khari Rosas Primary Care Provider Unav Donnell Martinez Unavailable [phone] Allergies No Known Allergies Reason For Referral [...] X ray : Foot, right 3V 01/26/2023 [id number] TENDON SHEATH/LIGAMENT 1 Insurance Providers Payer Name Payer Address Payer Phone Subscriber Number Group Number Insured Name Patient Relationship to Insured Coverage Start Date Coverage End Date Prime Remote [address] [place] [id number] Dev Siu Self - patient is the insured Medical (General) History Medical History History ICD Code Chicken pox Surgical History Surgery Date(Month/Year) appendectomy 1997
--- OUTSIDE RECORDS SUMMARY | 2024-10-05 14:03 | XMS_ITS | Clinical Summary ---
Author Organization [facility] ity Address [address] [place] [address] Care Team Providers Care Package Line Relief Operator Name Role Phone Unavailable Primary Care Provider [...]
--- OUTSIDE RECORDS SUMMARY | 2024-10-05 14:03 | XMS_ITS ---
Author Organization [facility] Address [address] [place] [address] Care Team Providers Care Underwriting Support Manager Name Role Phone Khari Rosas Primary Care Provider Unav ailable Donnell Hazel Unavailable [phone] Allergies No Known Allergies REASON FOR VISIT [...] 04/12/2023 Encounters Encounter Location Date Provider Diagnosis [facility] [address] [place] [address] 04/12/2023 Donnell Hazel Plantar fasciitis M72.2 Assessments Encounter Date Diagnosis (ICD Code) Assessment Notes Treatment Notes Treatment Clinical Notes Section Notes 04/12/2023 Plantar fasciitis (ICD-10 - M72.2) Response to treatment,Impro vement Plan Of Treatment Next Appt Details Follow Up: prn, Reason: Progress Notes * Dev BARRYDOB:[birth year] (37 yo M)Acc No.[id number]:04/12/2023 Progress Notes Patient:?Dev Barry Provider:?Donnell Hazel DPM :1985???Age:37 Y???Sex:Male Audie e:04/12/2023 Address:[address] [place] [address], [place] [address] Pcp:DWAINE Rodríguez Subjective: * Chief Complaints: * [...] Hazel DPM Date:?2022 Generated for Bridget mora/Chau/Shree on:?10/05/2024 02:03 PM EDT History and Physical Notes * HPI [...]
== END 2024-10-05 13:40 | disposition home or self-care (01) ==
LOC: HO.CT 13:39
PROVIDERS: PCP Nurse Practitioner Family; Visit Provider Nurse Practitioner Family
DX: S06.0XAA Concussion with loss of consciousness status unknown, initial encounter (principal)
CPT/HCPCS: 70450

== ENCOUNTER → 2024-10-05 13:41 | Outpatient (BNV) | payer OTHER, SELFPAY | PROVIDERS: PCP Nurse Practitioner Family; Visit Provider Radiology Diagnostic Radiology | DX: S09.90XA Unspecified injury of head, initial encounter (principal) | CPT/HCPCS: 70450 ==

== ENCOUNTER 2024-10-10 08:15 | Outpatient (REF) | payer OTHER, SELFPAY ==
--- OUTSIDE RECORDS SUMMARY | 2024-10-10 08:28 | XMS_ITS | Patient Health Record ---
Author Organization [facility] Rebekah moy [place] Address [address] [facility] [place] [address] Care Team Providers Care Enrollment Coordinator Name Role Phone Khari Rosas Primary Care Provider Unav Donnell Martinez Unavailable [phone] Allergies No Known Allergies Reason For Referral [...] X ray : Foot, right 3V 01/26/2023 [id number] TENDON SHEATH/LIGAMENT 1 Insurance Providers Payer Name Payer Address Payer Phone Subscriber Number Group Number Insured Name Patient Relationship to Insured Coverage Start Date Coverage End Date Prime Remote [address] [place] [id number] Dev Siu Self - patient is the insured Medical (General) History Medical History History ICD Code Chicken pox Surgical History Surgery Date(Month/Year) appendectomy 1997
--- OUTSIDE RECORDS SUMMARY | 2024-10-10 08:28 | XMS_ITS ---
Author Organization [facility] Address [address] [place] [address] Care Team Providers Care Plate And Frame Filter Operator Name Role Phone Khari Rosas Primary Care Provider Unav ailable Donnell Hazel Unavailable [phone] Allergies No Known Allergies REASON FOR VISIT [...] 04/12/2023 Encounters Encounter Location Date Provider Diagnosis [facility] [address] [place] [address] 04/12/2023 Donnell Hazel Plantar fasciitis M72.2 Assessments Encounter Date Diagnosis (ICD Code) Assessment Notes Treatment Notes Treatment Clinical Notes Section Notes 04/12/2023 Plantar fasciitis (ICD-10 - M72.2) Response to treatment,Impro vement Plan Of Treatment Next Appt Details Follow Up: prn, Reason: Progress Notes * Dev BARRYDOB:[birth year] (37 yo M)Acc No.[id number]:04/12/2023 Progress Notes Patient:?Dev Barry Provider:?Donnell Hazel DPM :1985???Age:37 Y???Sex:Male Audie e:04/12/2023 Address:[address] [place] [address], [place] [address] Pcp:DWAINE Rodríguez Subjective: * Chief Complaints: * [...] Hazel DPM Date:?2022 Generated for Bridget mora/Chau/Shree on:?10/10/2024 08:28 AM EDT History and Physical Notes * [...]
--- OUTSIDE RECORDS SUMMARY | 2024-10-10 08:29 | XMS_ITS | Clinical Summary ---
Author Organization [facility] ity Address [address] [place] [address] Care Team Providers Care Home Designer Name Role Phone Unavailable Primary Care Provider [...]
--- OUTSIDE RECORDS SUMMARY | 2024-10-10 08:29 | XMS_ITS | Continuity of Care Document ---
Author Name [facility] Organization [facility] Care Team Providers Care Small Equipment Operator Name Role Phone [facility] Unavailable Unavailable Problems Combined list of problems from Department of Defense and Veterans Affairs facilities. It does not include entries that were removed or entered in error. Problem Status Onset Date Problem Type Date of Resolution Comments Source Encounter for administrative examinations, unspecified Inactive 03/22/2019 Condition DoD visit for: administrative purpose Inactive 07/11/2012 Condition DoD REFRACTIVE ERROR Active Condition DoD visit for: services physical accession Active Condition DoD Allergies, Adverse Reactions, Alerts Combined list of allergies from Department of Defense and Veterans Affairs facilities. It does not include entries that were removed or entered in error. Substance Category Reaction Severity Reaction type Status Date Reported Comments Source No Known Allergies Drug allergy (disorder) active 07/11/2012 [facility] [place] [address] Immunizations Combined list of available immunizations from the Department of Defense and Veterans Affairs facilities. Immunization Series Date Given Administered By Site Reaction Lot Number CVX Code Drug Information Analyst Status Comments Source influenza, injectable, quadrivalent- pf 2022 150 GlaxoSmithKli ne complet ed influenza , injectabl e, quadrival ent-pf 05/25/23 Given Ambulat ory Pharmac y tetanus, diphtheria, acellular pertu is 2022 [id number] sanofi pasteur complet ed tetanus, diphtheri a, acellular pertussis 07/15/22 Given Ambulat ory Pharmac y Influenza, inj, MDCK, quadrivalent- pf 2021 171 Seqirus complet ed Influenza , inj, MDCK, quadrival ent-pf 03/16/22 Given Ambulat ory Pharmac y COVID Vaccine Pfizer 2020 [id number] PFIZER complet ed COVID Vaccine Pfizer 05/24/21 Given Ambulat ory Pharmac y COVID Vaccine Pfizer 2020 [id number] 208 PFIZER complet ed COVID Vaccine Pfizer 05/24/21 Given Ambulat ory Pharmac y influenza, seasonal, injectable 2020 [id number] 141 Seqirus complet ed influenza , seasonal, injectabl e 03/26/21 Given Ambulat ory Pharmac y influenza, seasonal, injectable 2020 [id number] 141 Seqirus complet ed influenza , seasonal, injectabl e 03/26/21 Given Ambulat ory Pharmac y Influenza, inj, MDCK, quadrivalent- pf 2020 171 complet ed Influenza , inj, MDCK, quadrival ent-pf 03/26/21 Given Ambulat ory Pharmac y Influenza, injectable, MDCK, preservative free, quadrivalent 2020 ZOILA, () Not Given Influenza , injectabl e, MDCK, preservat rodrick free, quadrival ent DoD COVID Vaccine Moderna 2020 [id number] 207 complet ed COVID Vaccine Moderna 07/25/20 Given Ambulat ory Pharmac y COVID Vaccine Moderna 2020 [id number] 207 complet ed COVID Vaccine Moderna 07/25/20 Given Ambulat ory Pharmac y COVID Vaccine Moderna 2020 [id number] 207 complet ed COVID Vaccine Moderna 06/26/20 Given Ambulat ory Pharmac y COVID Vaccine Moderna 2020 [id number] 207 complet ed COVID Vaccine Moderna 06/26/20 [...] 04/14/20 Given Ambulat ory Pharmac y Influenza, injectable, MDCK, preservative free, quadrivalent 2019 BOGDASARIAN, () Not Given Influenza , injectabl e, MDCK, preservat rodrick free, quadrival ent DoD influenza, seasonal, injectable-pf 2018 [id number] 140 Seqirus complet ed influenza , seasonal, injectabl e-pf 04/12/19 Given Ambulat ory Pharmac y influenza, injectable, quadrivalent- pf 2018 150 complet ed influenza , injectabl e, quadrival ent-pf 04/12/19 Given Ambulat ory Pharmac y influenza, seasonal, injectable-pf 2018 [id number] 140 Seqirus complet ed influenza , seasonal, injectabl e-pf 04/12/19 Given Ambulat ory Pharmac y influenza, injectable, quadrivalent, preservative free 2018 BOGDASARIAN, () Not Given influenza , injectabl e, quadrival ent, preservat rodrick free DoD anthrax vaccine 2018 [id number] Emergent Biosolutions complet ed anthrax vaccine 10/22/18 Given Ambulat ory Pharmac y anthrax vaccine 2018 [id number] 24 Emergent Biosolutions complet ed anthrax vaccine 10/22/18 Given Ambulat ory Pharmac y typhoid Vi capsular polysaccharid e vac 2018 [id number] 101 sanofi pasteur complet ed typhoid Vi capsular polysacch aride vac 09/07/18 Given Ambulat ory Pharmac y anthrax vaccine 2018 [id number] 24 Emergent Biosolutions complet ed anthrax vaccine 09/07/18 Given Ambulat ory Pharmac y poliovirus vaccine, inactivated 2018 [id number] 10 sanofi pasteur complet ed polioviru s vaccine, inactivat ed 09/07/18 Given Ambulat ory Pharmac y typhoid Vi capsular polysaccharid e vac 2018 [id number] 101 sanofi pasteur complet ed typhoid Vi capsular polysacch aride vac 09/07/18 Given Ambulat ory Pharmac y anthrax vaccine 2018 [id number] 24 Emergent Biosolutions complet ed anthrax vaccine 09/07/18 Given Ambulat ory Pharmac y poliovirus vaccine, inactivated 2018 [id number] 10 sanofi pasteur complet ed polioviru s vaccine, inactivat ed 09/07/18 Given Ambulat ory Pharmac y influenza, injectable, quadrivalent- pf 2017 [id number] 150 Seqirus complet ed influenza , injectabl e, quadrival ent-pf 04/22/18 Given Ambulat ory Pharmac y Influenza, injectable, quadrivalent, preservative free 7 2017 [id number] 150 Seqirus (SEQ) comple t ed Influenza , injectabl e, quadrival ent, preservat rodrick free DoD influenza, injectable, quadrivalent 2016 [id number] 158 complet ed influenza , injectabl e, quadrival ent 04/06/17 Given Ambulat ory Pharmac y influenza, injectable, quadrivalent, contains preservative 1 2016 [id number] 158 Transcribed (TRS) complet ed influenza , injectabl e, quadrival ent, contains preservat rodrick DoD measles/mumps /rubella virus vaccine 2016 [id number] 03 Merck & Company Inc complet ed measles/m umps/rube lla virus vaccine 11/07/16 Given Ambulat ory Pharmac y measles, mumps and rubella virus vaccine 2 2016 [id number] 03 Merck (MSD) complet ed measles, mumps and rubella virus vaccine DoD measles/mumps /rubella virus vaccine 2016 [id number] 03 Merck & Company Inc complet ed measles/m umps/rube lla virus vaccine 08/21/16 Given Ambulat ory Pharmac y measles, mumps and rubella virus vaccine 1 2016 [id number] 03 Merck (MSD) complet ed measles, mumps and rubella virus vaccine DoD influenza, seasonal, injectable-pf 2015 [id number] 140 Seqirus complet ed influenza , seasonal, injectabl e-pf 04/03/16 Given Ambulat ory Pharmac y Influenza, seasonal, injectable, preservative free 0 2015 [id number] 140 Seqirus (SEQ) comple t ed Influenza , seasonal, injectabl e, preservat rodrick free DoD influenza, seasonal, injectable-pf 2014 [id number] 140 CSL Behring complet ed influenza , seasonal, injectabl e-pf 03/23/15 Given Ambulat ory Pharmac y Influenza, seasonal, injectable, preservative free 4 2014 [id number] 140 CSL [employer] (CSL) complet ed Influenza , seasonal, injectabl e, preservat rodrick free DoD Influenza, injectable, MDCK-pf 2013 [id number] 153 Novartis Pharmaceutica ls complet ed Influenza , injectabl e, MDCK-pf 03/24/14 Given Ambulat ory Pharmac y Influenza, injectable, Madin Morris Canine Kidney, preservative free 0 2013 [id number] 153 Novartis Pharmaceutica l Prashant. (NOV) complet ed Influenza , injectabl e, Madin Joan Canine Kidney, preservat rodrick free DoD hepatitis A adult vaccine 2013 [id number] 52 GlaxoSmithKli ne complet ed hepatitis A adult vaccine 10/21/13 Given Ambulat ory Pharmac y hepatitis A vaccine, adult dosage 2 2013 [id number] [facility] hepatitis A vaccine, adult dosage DoD influenza, seasonal, injectable-pf 2012 140 complet ed influenza , seasonal, injectabl e-pf 05/15/13 Given Ambulat ory Pharmac y Influenza, seasonal, injectable, preservative free 0 2012 140 (MVX) complet ed Influenza , seasonal, injectabl e, preservat rodrick free DoD hepatitis A adult vaccine 2012 [id number] [id number] 52 GlaxoSmithKli ne complet ed hepatitis A adult vaccine 07/06/12 Given Ambulat ory Pharmac y hepatitis A vaccine, adult dosage 1 2012 [id number] [id number] 52 [place] (SKB) complet ed hepatitis A vaccine, adult dosage DoD tuberculin purified protein derivative 2012 [id number] 96 [facility] complet ed tuberculi n purified protein derivativ e 06/30/12 Given Ambulat ory Pharmac y influenza, seasonal, injectable-pf 2012 [id number] 140 CSL Behring complet ed influenza , seasonal, injectabl e-pf 06/30/12 Given Ambulat ory Pharmac y meningococcal A,C,Y,W-135 (MCV4P) 2012 [id number] 114 sanofi pasteur complet ed meningoco ccal A,C,Y,W-1 35 (MCV4P) 06/30/12 Given Ambulat ory Pharmac y adenovirus vaccine, live 2012 [id number] 5 143 Teva Pharmaceutica ls complet ed adenoviru s vaccine, live 06/30/12 Given Ambulat ory Pharmac y poliovirus vaccine, inactivated 2012 [id number] 10 sanofi pasteur complet ed polioviru s vaccine, inactivat ed 06/30/12 Given Ambulat ory Pharmac y tetanus, diphtheria, acellular pertu is 2012 [id number] 2BA 115 [facility] complet ed tetanus, diphtheri a, acellular pertussis 06/30/12 Given Ambulat ory Pharmac y tuberculin purified protein derivative 2012 [id number] 96 [facility] complet ed tuberculi n purified protein derivativ e 06/30/12 Given Ambulat ory Pharmac y poliovirus vaccine, inactivated 1 2012 [id number] 10 Sanofi Pasteur ([facility]) complet ed polioviru s vaccine, inactivat ed DoD meningococcal polysaccharid e (groups A, C, Y and W-135) diphtheria toxoid conjugate vaccine (MCV4P) 1 2012 [id number] 114 Sanofi Pasteur ([facility]) complet ed meningoco ccal polysacch aride (groups A, C, Y and W-135) diphtheri a toxoid conjugate vaccine (MCV4P) DoD tetanus toxoid, reduced diphtheria toxoid, and acellular pertu is vaccine, adsorbed 1 2012 [id number] 2BA 115 [place] (SKB) complet ed tetanus toxoid, reduced diphtheri a toxoid, and acellular pertussis vaccine, adsorbed DoD Influenza, seasonal, injectable, preservative free 1 2012 [id number] 140 CSL [employer] (CSL) complet ed Influenza , seasonal, injectabl e, preservat rodrick free DoD Adenovirus, type 4 and type 7, live, oral 1 2012 [id number] 5 143 [facility] (BRR) complet ed Adenoviru s, type 4 and type 7, live, oral DoD measles virus vaccine 0 2012 05 () Not Given measles virus vaccine DoD rubella virus vaccine 0 2012 06 () Not Given rubella virus vaccine DoD varicella virus vaccine 0 2012 21 () Not Given varicella virus vaccine DoD hepatitis B vaccine, unspecified formulation 0 2012 45 () Not Given hepatitis B vaccine, unspecifi ed formulati on DoD Results Combined list of recent chemistry, hematology [...] Prevention' s HIV diagnostic algorithm. Refer to [facility] Lab Guide for additional information : [email or web address]://[email or web address]. [facility]/ [email or web address] [email or web address] x Testing performed by [employer] ce. 5600A-U [facility] EPIL[facility] Miscellan eous Sendouts Repository Sample Received (08/27/23 9:18 AM) 08/26 N [facility] Encounters Combined list of: 1) Encounters from Department of Veterans Affairs facilities going backup to the last 18 months, not all VA inpatient encounters are included; 2) Encounters from the Department of Defense facilities going backup to 280 months. Location Location Details Encounter Type Encounter Number Reason For Visit Attending Provider ADM Date DC Date Status Disposition [place] [address](Opt ometry Clinic [facility]) OUTPATIENT [id number] CHAPO WORKMAN 07/06 Released w/o Limitations [facility] [place] [address](O ptometr y Clinic [facility]MT [facility]) [place] [address](MAS Lewis) OUTPATIENT [id number] Notes Entered by: PHANI TINSLEY 11 Jul 2012 0735 ------- ------- ------- ------- -- Cold/Pa in pack KYLEE_FABAIN SOLOMON S 07/11 Released w/o Limitations [facility] [place] [address](M Lewis) [place] [address](MAS Lewis) OUTPATIENT [id number] Notes Entered by: FABIAN MCLEAN 21 Jul 2012 0900 ------- ------- ------- ------- -- minor cold sx/ minor pain DAYDAY BRAGA 07/21 Released w/o Limitations [facility] [place] [address](M Lewis) [place] [address](MAS Lewis) OUTPATIENT [id number] Notes Entered by: PHANI TINSLEY 02 Aug 2012 0729 ------- ------- ------- ------- -- Cold/Pa in pack LEWIS AVILA 08/02 Released w/o Limitations [facility] [place] [address](M Lewis) [place] [address](MAS Lewis) OUTPATIENT [id number] Notes Entered by: DAYDAY BRAGA 17 Aug 2012 0757 ------- ------- ------- ------- -- Cold Pack DAYDAY BRAGA 08/17 Released w/o Limitations [facility] [place] [address](M Lewis) Theater Facility OUTPATIENT [id number] 4 Theater Provider 03/22 Released w/o Limitations [facility] 8344R-439 AMDS Between Visit [id number] 09/06 Discharge Disposition: Home or Self Care 8344R-4 39 AMDS 8344R-439 AMDS Between Visit [id number] 09/22 Discharge Disposition: Home or Self Care 8344R-4 39 AMDS 8344R-439 AMDS Between Visit [id number] 10/01 Discharge Disposition: Home or Self Care 8344R-4 39 AMDS 8344R-439 AMDS Between Visit [id number] 10/08 Discharge Disposition: Home or Self Care 8344R-4 39 AMDS 8344R-439 AMDS Preclinic [id number] 10/19 8344R-4 39 AMDS Procedures Combined list of: 1) Procedures from Department of Veterans Affairs facilities going [facility], not all VA non-surgical procedures are included; 2) All procedures from the Department of Defense facilities. Procedure Procedure Type Code Date Perfomer Comments Sourc e THERAPEUTIC, PROPHYLACTIC, OR DIAGNOSTIC INJECTION (SPECIFY SUBSTANCE OR DRUG); SUBCUTANEOUS OR INTRAMUSCULAR 3 [facility] SCREENING TEST OF VISUAL ACUITY, QUANTITATIVE, BILATERAL 3 [facility] Screening Test Of Visual Acuity, Quantitative, Bilateral Screening Test Of Visual Acuity, Quantitative, Bilateral 02352 3 TOSHIA WHALEN [facility] Fitting Monofocals (Not For Aphakia) [facility] Fitting Monofocals (Not For Aphakia) 78591 3 TOSHIA WHALEN No data available for this section Ambulato ry Pharmacy Social History Combined list of available smoking, tobacco, and other social history from Department of Defense and Veterans Affairs facilities. Social History Type Response Date Comment Sourc e This section is an empty social history section. DoD Assessment and Plan Combined list of future care activities from Department of Defense and Veterans Affairs facilities (e.g., assessment and plan notes, appointments, orders, and referrals). Additional future care activities may be listed in the Plan of Care section. Result Assessment and Plan Date Source Assessment and Plan Future Appointments Appointment Date: 10/19/2024 09:30:00 AM Scheduled Provider: Location: [address] [place] [address] Appointment Type: NG/R FTR 10/10/2024 Ambulatory Pharmacy Functional Status Combined list of recent functional and cognitive assessments recorded at Department of Defense and Veterans Affairs (VA).VA Functional Cochran Measurement (FIM) Scale: 1 = Total Assistance (Subject = 0% +), 2 = Maximal Assistance (Subject = 25% +), 3 = Moderate Assistance (Subject = 50% +), 4 = Minimal Assistance (Subject = 75% +), 5 = Supervision, 6 = Modified Cochran (Device), 7 = Complete Cochran (Timely, Safely). Assessment Date/Time Source Assessment Type Assessment Skill Assessment Score Assessment Details No data available for this section
[2024-10-10 10:23] LABS: MANUAL DIFF FLAG NO
[2024-10-10 10:27] LABS: Basophils Percent Auto 0.8 % (0-2); Eosinophils Absolute Auto 0.2 X10*3/uL (0.0-0.4); Hematocrit 43.5 % (42.0-52.0); Hemoglobin 14.6 g/dl (14.0-18.0); Imm Gran Abs Auto 0.01 X10*3/uL (0.00-0.03); Imm Gran Pct Auto 0.2 % (0.0-0.4); Lymphocytes Absolute Auto 1.7 X10*3/uL (1.2-4.9); Lymphocytes Percent Auto 34.1 % (20-40); Mean Corpuscular HGB Conc 33.6 g/dl (31.0-36.0); Mean Corpuscular Hemoglobin 29.6 pg (27.0-33.0); Mean Corpuscular Volume 88.2 fL (80.0-98.0); Mean Platelet Volume 10.6 fL (9.4-12.4); Monocytes Absolute Auto 0.3 X10*3/uL (0.1-1.2); Monocytes Percent Auto 6.8 % (2-11); Neutrophils Absolute Auto 2.8 x10*3/uL (2.0-8.3); Neutrophils Percent Auto 55.1 % (45-73); Platelet Count 246 X10*3/uL (160-400); Red Blood Count 4.93 X10*6/uL (4.60-5.80); Red Cell Distribution Width 13.5 % (11.0-16.0)
[2024-10-10 10:56] LABS: Appearance Urine Clear; Color Urine Yellow; Glucose Urine UA Negative (Negative); Leukocyte Esterase Urine Negative (Negative); Nitrite Urine Negative (Negative); Specific Gravity - Urine 1.025 (1.005-1.025); Urine Blood Negative (Negative); Urine Ketones Negative (Negative); Urine Protein Negative (Neg-Trace)
[2024-10-10 11:19] LABS: Alanine Aminotransferase 30 U/L (0-40); Albumin Level 4.3 g/dL (3.5-5.0); Alkaline Phosphatase 62 U/L (39-117); Anion Gap 8 (12-20); Aspartate Amino Transferase 25 U/L (5-37); Bilirubin Total 0.9 mg/dL (0.0-1.0); Blood Urea Nitrogen 19 mg/dL (9-16); Carbon Dioxide 28 mmol/L (22-29); Chloride 106 mmol/L (96-108); Cholesterol 233 mg/dL (<200); Estimated Glomerular Filt Rate > 60; Glucose Fasting 104 mg/dL (60-99); HDL Cholesterol 67 mg/dL (>40); LDL Cholesterol Calculated 150 mg/dL (<100); Potassium 4.4 mmol/L (3.3-5.1); Sodium 138 mmol/L (135-145); Total Protein 7.2 g/dL (6.5-8.0); Triglycerides 82 mg/dL (<150)
[2024-10-10 11:22] LABS: TSH reflex Free T4 2.38 uIU/mL (0.32-4.0)
[2024-10-17 09:39] LABS: Testosterone, Free 60.1 pg/mL (35.0-155.0); Testosterone, Total 332 ng/dL (250-1100)
== END 2024-10-10 08:16 | disposition home or self-care (01) ==
LOC: HO.HMGCLDS 08:15
PROVIDERS: PCP Nurse Practitioner Family; Visit Provider Nurse Practitioner Family
DX: Z00.00 Encounter for general adult medical examination without abnormal findings (principal); Z13.220 Encounter for screening for lipoid disorders; Z13.29 Encounter for screening for other suspected endocrine disorder; Z13.9 Encounter for screening, unspecified; Z13.0 Encounter for screening for diseases of the blood and blood-forming organs and certain disorders involving the immune mechanism
CPT/HCPCS: 36415; 80053; 80061; 81003; 84402; 84403; 84443; 85025

== ENCOUNTER 2024-10-15 08:53 | Outpatient (AMB) | payer OTHER, SELFPAY ==
--- NOTE | 2024-10-15 09:22 | MHC.OFFVIS ---
Intake Visit Reasons: Vastectomy consulatation Intake Note: New patient presents today for initial visit for a vasectomy consult Urology Medication:none Blood Thinner:none Antibiotic Allergies:none Allergies No Known Allergies Allergy (Verified 10/15/24 09:23) HPI Comments Details: Dev Lucia is a 39-year-old male who is here for evaluation for a vasectomy. He has 2 children. Boy and girl, daughter is 10 weeks old now. Vasectomy procedure was discussed at length with the patient. He was informed that vasectomy is a safe, permanent, and effective form of control but there are risks involved. It may involve risk of hematoma, procedure failure which is rare, sperm granuloma which may cause mild pain, and congestion which may cause sense of pressure and generally resolves after several weeks. Also discussed is the reported post vasectomy pain syndrome with chronic testicular pain which is uncommon <5% The patient was advised that it is necessary to use other types of control methods for > 12 weeks and until we send semen for analysis to make sure there is no more sperm in the semen. [facility] Medical History Head injury Surgical History History of appendectomy Family History Paternal Grandfather Heart disease Diabetes Social History Housing: Condominium Alcohol intake: current Alcohol intake frequency: a few times a week Patient Tobacco Use Status: Never used Tobacco e-Cigarette/Vaping Use: Never Used service: Yes Current occupational status: employed Current occupation: Cognitive needs: No Hearing needs: No Vision needs: Yes Review of Systems Const All systems reviewed & are unremarkable except as noted in HPI and below Reports no additional complaints Eyes Reports no additional complaints ENT Reports no additional complaints Card Reports no additional complaints Resp Reports no additional complaints GI Reports no additional complaints Reports as per HPI Musc Reports no additional complaints Skin/Breast Reports system reviewed and no additional complaints, except as documented Neuro Reports no additional complaints Psych Reports no additional complaints Endo Reports no additional complaints Raul/Lymph Reports no additional complaints Aller/Immun Reports no additional complaints Physical Exam Const General: healthy appearing, no acute distress and well developed Orientation/consciousness: patient oriented x3 HEENT Head: Yes normocephalic and Yes atraumatic Eyes Conjunctivae: conjunctivae normal Neck Neck: Yes normal visual inspection Chest Chest palpation & inspection: normal inspection of the chest Resp Effort & Inspection: normal respiratory effort GI Inspection: Yes normal to inspection Neuro General: patient oriented x3 Psych Appearance: grossly normal Affect: normal affect Assessment & Plan Assessment & Plan (1) Anxiety about health: Code(s): R45.89 - Other symptoms and signs involving emotional state Category: Medical (2) Encounter for vasectomy counseling: Code(s): Z30.09 - Encounter for other general counseling and advice on contraception Category: Medical Plan Schedule B/L vasectomy Patient Instructions: The patient had an opportunity to ask questions regarding treatment plan. The patient expressed understanding and agreement with the above treatment plan. The patient is aware they should contact our office by phone for worsening of their current condition or the appearance of new symptoms. Compliance is encouraged with any medications and followup testing that is ordered. It is a privilege to be allowed the opportunity to participate in the urologic care of your patient. If you have any questions or concerns regarding treatment for the above conditions please do not hesitate to contact me. The office telephone contact is [phone]. This note is constructed in part using voice recognition software. While every effort has been made to ensure accuracy aerial photographer errors may have been included. Yours sincerely, Ella Cunningham MD Coding Level of Care Code New Pt Level 4 (26456) Diagnoses Anxiety about health R45.89 Encounter for vasectomy counseling Z30.
--- OUTSIDE RECORDS SUMMARY | 2024-10-15 09:36 | XMS_ITS | Patient Health Record ---
Author Organization [facility] Rebekah moy Rillito Address [address] [place] [address] Care Team Providers Care Real Estate Listing Consultant Name Role Phone Khari Rosas Primary Care Provider Unav Donnell Martinez Unavailable [phone] Allergies No Known Allergies Reason For Referral [...] X ray : Foot, right 3V 01/26/2023 06039,[id number] TENDON SHEATH/LIGAMENT 1 Insurance Providers Payer Name Payer Address Payer Phone Subscriber Number Group Number Insured Name Patient Relationship to Insured Coverage Start Date Coverage End Date [employer] [address] [place] [id number] [phone] [id number] Dev Siu Self - patient is the insured Medical (General) History Medical History History ICD Code Chicken pox Surgical History Surgery Date(Month/Year) appendectomy 1997
--- OUTSIDE RECORDS SUMMARY | 2024-10-15 09:36 | XMS_ITS | Clinical Summary ---
Author Organization [facility] ity Address [address] [place] [address] Care Team Providers Care Edge Bonder Name Role Phone Unavailable Primary Care Provider [...]
--- OUTSIDE RECORDS SUMMARY | 2024-10-15 09:36 | XMS_ITS | Continuity of Care Document ---
Author Name [facility] Organization [facility] Care Team Providers Care Pss Delivery Professional Name Role Phone [facility] Unavailable Unavailable Problems Combined list of problems [...] Known Allergies Drug allergy (disorder) active 07/11/2012 [facility] [place] [address] Immunizations Combined list of available immunizations from the Department of Defense and Veterans Affairs facilities. Immunization Series Date Given Administered By Site Reaction Lot Number CVX Code Drug Mechanic Recovery Status Comments Source influenza, injectable, quadrivalent- pf 2022 150 GlaxoSmithKli ne complet ed influenza , injectabl e, quadrival ent-pf 05/25/23 Given Ambulat ory Pharmac y tetanus, diphtheria, acellular pertu is 2022 [id number] sanofi pasteur complet ed tetanus, diphtheri a, acellular pertussis 07/15/22 Given Ambulat ory Pharmac y Influenza, inj, MDCK, quadrivalent- pf 2021 171 Seqirus complet ed Influenza , inj, MDCK, quadrival ent-pf 03/16/22 Given Ambulat ory Pharmac y COVID Vaccine Pfizer 2020 [id number] 208 PFIZER complet ed COVID Vaccine Pfizer 05/24/21 Given Ambulat ory Pharmac y COVID Vaccine Pfizer 2020 [id number] 208 PFIZER complet ed COVID Vaccine Pfizer 05/24/21 Given Ambulat ory Pharmac y influenza, seasonal, injectable 2020 [id number] 141 Seqirus complet ed influenza , seasonal, injectabl e 03/26/21 Given Ambulat ory Pharmac y influenza, seasonal, injectable 2020 [id number] 141 Seqirus complet ed influenza , seasonal, injectabl e 03/26/21 Given Ambulat ory Pharmac y Influenza, inj, MDCK, quadrivalent- pf 2020 171 complet ed Influenza , inj, MDCK, quadrival ent-pf 03/26/21 Given Ambulat ory Pharmac y Influenza, injectable, MDCK, preservative free, quadrivalent 2020 [id number], () Not Given Influenza , injectabl e, MDCK, preservat rodrick free, quadrival ent DoD COVID Vaccine Moderna 2020 [id number] 207 complet ed COVID Vaccine Moderna 07/25/20 Given Ambulat ory Pharmac y COVID Vaccine Moderna 2020 [id number] 207 complet ed COVID Vaccine Moderna 07/25/20 Given Ambulat ory Pharmac y COVID Vaccine Moderna 2020 [id number] 207 complet ed COVID Vaccine Moderna 06/26/20 Given Ambulat ory Pharmac y COVID Vaccine Moderna 2020 [id number] 207 complet ed COVID Vaccine Moderna 06/26/20 [...] quadrival ent DoD influenza, seasonal, injectable-pf 2018 [id number] 140 Seqirus complet ed influenza , seasonal, injectabl e-pf 04/12/19 Given Ambulat ory Pharmac y influenza, injectable, quadrivalent- pf 2018 150 complet ed influenza , injectabl e, quadrival ent-pf 04/12/19 Given Ambulat ory Pharmac y influenza, seasonal, injectable-pf 2018 [id number] 140 Seqirus complet ed influenza , seasonal, injectabl e-pf 04/12/19 Given Ambulat ory Pharmac y influenza, injectable, quadrivalent, preservative free 2018 [id number], () Not Given influenza , injectabl e, quadrival ent, preservat rodrick free DoD anthrax vaccine 2018 [id number] Emergent Biosolutions complet ed anthrax vaccine 10/22/18 Given Ambulat ory Pharmac y anthrax vaccine 2018 [id number] 24 Emergent Biosolutions complet ed anthrax vaccine 10/22/18 Given Ambulat ory Pharmac y typhoid Vi capsular polysaccharid e vac 2018 [id number] 101 sanofi pasteur complet ed typhoid Vi capsular polysacch aride vac 09/07/18 Given Ambulat ory Pharmac y anthrax vaccine 2018 [id number] 24 Emergent [employer] complet ed anthrax vaccine 09/07/18 Given Ambulat ory Pharmac y poliovirus vaccine, inactivated 2018 [id number] 10 sanofi pasteur complet ed polioviru s vaccine, inactivat ed 09/07/18 Given Ambulat ory Pharmac y typhoid Vi capsular polysaccharid e vac 2018 [id number] 101 sanofi pasteur complet ed typhoid Vi capsular polysacch aride vac 09/07/18 Given Ambulat ory Pharmac y anthrax vaccine 2018 [id number] 24 [employer] complet ed anthrax vaccine 09/07/18 Given Ambulat ory Pharmac y poliovirus vaccine, inactivated 2018 [id number] 10 sanofi pasteur complet ed polioviru s vaccine, inactivat ed 09/07/18 Given Ambulat ory Pharmac y influenza, injectable, quadrivalent- pf 2017 [id number] 150 Seqirus complet ed influenza , injectabl e, quadrival ent-pf 04/22/18 Given Ambulat ory Pharmac y Influenza, injectable, quadrivalent, preservative free 7 2017 [id number] 150 Seqirus (SEQ) comple t ed Influenza , injectabl e, quadrival ent, preservat rodrick free DoD influenza, injectable, quadrivalent 2016 [id number] 158 complet ed influenza , injectabl e, quadrival ent 04/06/17 Given Ambulat ory Pharmac y influenza, injectable, quadrivalent, contains preservative 1 2016 [id number] 158 Transcribed (TRS) complet ed influenza , injectabl e, quadrival ent, contains preservat rodrick DoD measles/mumps /rubella virus vaccine 2016 [id number] 03 Merck & Company Inc complet ed measles/m umps/rube lla virus vaccine 11/07/16 Given Ambulat ory Pharmac y measles, mumps and rubella virus vaccine 2 2016 [id number] 03 Merck (MSD) complet ed measles, mumps and rubella virus vaccine DoD measles/mumps /rubella virus vaccine 2016 [id number] 03 Merck & Company Inc complet ed measles/m umps/rube lla virus vaccine 08/21/16 Given Ambulat ory Pharmac y measles, mumps and rubella virus vaccine 1 2016 [id number] 03 Merck (MSD) complet ed measles, mumps and rubella virus vaccine DoD influenza, seasonal, injectable-pf 2015 [id number] 140 Seqirus complet ed influenza , seasonal, injectabl e-pf 04/03/16 Given Ambulat ory Pharmac y Influenza, seasonal, injectable, preservative free 0 2015 [id number] 140 Seqirus (SEQ) comple t ed Influenza , seasonal, injectabl e, preservat rodrick free DoD influenza, seasonal, injectable-pf 2014 [id number] 140 CSL Behring complet ed influenza , seasonal, injectabl e-pf 03/23/15 Given Ambulat ory Pharmac y Influenza, seasonal, injectable, preservative free 4 2014 [id number] 140 CSL [employer] (CSL) complet ed Influenza , seasonal, injectabl e, preservat rodrick free DoD Influenza, injectable, MDCK-pf 2013 [id number] 153 Novartis Pharmaceutica ls complet ed Influenza , injectabl e, MDCK-pf 03/24/14 Given Ambulat ory Pharmac y Influenza, injectable, Madin [place]ublin Canine Kidney, preservative free 0 2013 [id number] 153 Novartis Pharmaceutica l Prashant. (NOV) complet ed Influenza , injectabl e, Madin Ojan Canine Kidney, preservat rodrick free DoD hepatitis A adult vaccine 2013 [id number] 52 GlaxoSmithKli ne complet ed hepatitis A adult vaccine 10/21/13 Given Ambulat ory Pharmac y hepatitis A vaccine, adult dosage 2 2013 [id number] 52 [facility] (SKB) complet ed hepatitis A vaccine, adult [...] adult dosage 1 2012 [id number] 52 [employer] (SKB) complet ed hepatitis A vaccine, adult dosage DoD tuberculin purified protein derivative 2012 [id number] 96 [facility] complet ed tuberculi n purified protein derivativ e 06/30/12 Given Ambulat ory Pharmac y influenza, seasonal, injectable-pf 2012 [id number] 140 CSL Behring complet ed influenza , seasonal, injectabl e-pf 06/30/12 Given Ambulat ory Pharmac y meningococcal A,C,Y,W-135 (MCV4P) 2012 [id number] 114 sanofi pasteur complet ed meningoco ccal A,C,Y,W-1 35 (MCV4P) 06/30/12 Given Ambulat ory Pharmac y adenovirus vaccine, live 2012 [id number] 5 143 Teva Pharmaceutica ls complet ed adenoviru s vaccine, live 06/30/12 Given Ambulat ory Pharmac y poliovirus vaccine, inactivated 2012 H1605 10 sanofi pasteur complet ed polioviru s vaccine, inactivat ed 06/30/12 Given Ambulat ory Pharmac y tetanus, diphtheria, acellular pertu is 2012 [id number] 2BA 115 [facility] complet ed tetanus, diphtheri a, acellular pertussis 06/30/12 Given Ambulat ory Pharmac y tuberculin purified protein derivative 2012 [id number] 96 [facility] complet ed tuberculi n purified protein derivativ e 06/30/12 Given Ambulat ory Pharmac y poliovirus vaccine, inactivated 1 2012 [id number] 10 Sanofi Pasteur ([facility]) complet ed polioviru s vaccine, inactivat ed DoD meningococcal polysaccharid e (groups A, C, Y and W-135) diphtheria toxoid conjugate vaccine (MCV4P) 1 2012 [id number] 114 Sanofi Pasteur ([facility]) complet ed meningoco ccal polysacch aride (groups A, C, Y and W-135) diphtheri a toxoid conjugate vaccine (MCV4P) DoD tetanus toxoid, reduced diphtheria toxoid, and acellular pertu is vaccine, adsorbed 1 2012 [id number] 2BA 115 [employer] (SKB) complet ed tetanus toxoid, reduced diphtheri a toxoid, and acellular pertussis vaccine, adsorbed DoD Influenza, seasonal, injectable, preservative free 1 2012 [id number] 140 [employer] (CSL) complet ed Influenza , seasonal, injectabl e, preservat rodrick free DoD Adenovirus, type 4 and type 7, live, oral 1 2012 [id number] 5 143 [facility] ([facility]) complet ed Adenoviru s, [...] Prevention' s HIV diagnostic algorithm. Refer to [facility] Lab Guide for additional information : 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 [place] [address](M Lewis) [facility] [place] [address](MAS Lewis) OUTPATIENT [id number] Notes Entered by: FABIAN MCLEAN 21 Jul 2012 0900 ------- ------- ------- ------- -- minor cold sx/ minor pain DAYDAY BRAGA 07/21 Released w/o Limitations [facility] [place] [address](M Lewis) [facility] [place] [address](MAS Lewis) OUTPATIENT [id number] Notes Entered by: PHANI TINSLEY 02 Aug 2012 0729 ------- ------- ------- ------- -- Cold/Pa in pack LEWIS AVILA 08/02 Released w/o Limitations [facility] [place] [address](M Lewis) [facility] [place] [address](MAS Lewis) OUTPATIENT [id number] Notes Entered by: DAYDAY BRAGA 17 Aug 2012 0757 ------- ------- ------- ------- -- Cold Pack DAYDAY BRAGA 08/17 Released w/o Limitations [facility] [place] [address](M Lewis) Theater Facility OUTPATIENT [id number] 4 Theater Provider 03/22 Released w/o Limitations [facility] 8344R-439 AMDS Between Visit [id number] 09/06 Discharge Disposition: Home or Self Care 8344R-4 39 AMDS 8344R-439 AMDS Between Visit [id number] 09/22 Discharge Disposition: Home or Self Care 8344R-4 39 AMDS 8344R-439 AMDS Between Visit [id number] 10/01 Discharge Disposition: Home or Self Care 8344R-4 39 AMDS 8344R-439 AMDS Between Visit [id number] 10/08 Discharge Disposition: Home or Self Care 8344R-4 39 AMDS 8344R-439 AMDS Preclinic [id number] 10/19 8344R-4 39 AMDS Procedures Combined list of: 1) Procedures from Department of Veterans Affairs facilities [facility], not all VA non-surgical procedures are included; 2) All procedures from the Department of Defense facilities. Procedure Procedure Type Code Date Perfomer Comments Sourc e No data available for this section Ambulato ry Pharmacy Screening Test Of Visual Acuity, Quantitative, Bilateral Screening Test Of Visual Acuity, Quantitative, Bilateral 83926 3 TOSHIA WHALEN. [facility] Spectacles Services Fitting Monofocals (Not For Aphakia) [facility] Fitting Monofocals (Not For Aphakia) 73763 3 TOSHIA WHALEN. [facility] THERAPEUTIC, PROPHYLACTIC, OR DIAGNOSTIC INJECTION (SPECIFY SUBSTANCE OR DRUG); SUBCUTANEOUS OR INTRAMUSCULAR 3 [facility] SCREENING TEST OF VISUAL ACUITY, QUANTITATIVE, BILATERAL 3 [facility] Social History Combined list of available smoking, [...] Date: 10/19/2024 09:30:00 AM Scheduled Provider: Location: [address] [place] [address] Appointment Type: NG/R FTR 10/15/2024 Ambulatory Pharmacy Functional Status Combined list of recent functional and cognitive assessments recorded at Department of Defense and Veterans Affairs (VA).VA Functional Parker Measurement (FIM) Scale: 1 = Total Assistance (Subject = 0% +), 2 = Maximal Assistance (Subject = 25% +), 3 = Moderate Assistance (Subject = 50% +), 4 = Minimal Assistance (Subject = 75% +), 5 = Supervision, 6 = Modified Parker (Device), 7 = Complete Parker (Timely, Safely). Assessment Date/Time Source Assessment Type Assessment Skill Assessment Score Assessment Details No data available for this section
== END 2024-10-15 10:02 | disposition home or self-care (01) ==
LOC: HO.HUSH 08:54
PROVIDERS: PCP Nurse Practitioner Family; Visit Provider Urology
DX: R45.89 Other symptoms and signs involving emotional state (principal); Z30.09 Encounter for other general counseling and advice on contraception
CPT/HCPCS: 99204

== ENCOUNTER → 2024-10-15 08:53 | Outpatient (BNVA) | payer OTHER, SELFPAY | PROVIDERS: PCP Nurse Practitioner Family; Visit Provider Urology | DX: R45.89 Other symptoms and signs involving emotional state (principal); Z30.09 Encounter for other general counseling and advice on contraception | CPT/HCPCS: 99202 ==

== ENCOUNTER 2024-10-19 15:48 | Outpatient (AMB) | payer OTHER, SELFPAY ==
--- OUTSIDE RECORDS SUMMARY | 2024-10-19 15:51 | XMS_ITS | Continuity of Care Document ---
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 Immunization Series Date Given Administered By Site Reaction Lot Number CVX Code Drug Blood Bank Laboratory Technician Status Comments Source influenza, injectable, quadrivalent- pf 2022 150 GlaxoSmithKli ne complet ed influenza , injectabl e, quadrival ent-pf 05/25/23 Given Ambulat ory Pharmac y tetanus, diphtheria, acellular pertu is 2022 [id number] sanofi pasteur complet ed tetanus, diphtheri a, acellular pertussis 07/15/22 Given Ambulat ory Pharmac y Influenza, inj, MDCK, quadrivalent- pf 2021 171 Seqirus complet ed Influenza , inj, MDCK, quadrival ent-pf 03/16/22 Given Ambulat ory Pharmac y COVID Vaccine Pfizer 2020 [id number] 208 PFIZER complet ed COVID Vaccine Pfizer 05/24/21 Given Ambulat ory Pharmac y COVID Vaccine Pfizer 2020 [id number] 208 PFIZER complet ed COVID Vaccine Pfizer 05/24/21 Given Ambulat ory Pharmac y influenza, seasonal, injectable 2020 [id number] 141 Seqirus complet ed influenza , seasonal, injectabl e 03/26/21 Given Ambulat ory Pharmac y influenza, seasonal, injectable 2020 [id number] 141 Seqirus complet ed influenza , seasonal, injectabl e 03/26/21 Given Ambulat ory Pharmac y Influenza, inj, MDCK, quadrivalent- pf 2020 171 complet ed Influenza , inj, MDCK, quadrival ent-pf 03/26/21 Given Ambulat ory Pharmac y Influenza, injectable, MDCK, preservative free, quadrivalent 2020 [id number], () Not Given Influenza , injectabl e, MDCK, preservat rodrick free, quadrival ent DoD COVID Vaccine Moderna 2020 [id number] complet ed COVID Vaccine Moderna 07/25/20 Given Ambulat ory Pharmac y COVID Vaccine Moderna 2020 [id number] 207 complet ed COVID Vaccine Moderna 07/25/20 Given Ambulat ory Pharmac y COVID Vaccine Moderna 2020 [id number] 207 complet ed COVID Vaccine Moderna 06/26/20 Given Ambulat ory Pharmac y COVID Vaccine Moderna 2020 [id number] 207 complet ed COVID Vaccine Moderna 06/26/20 [...] quadrival ent DoD influenza, seasonal, injectable-pf 2018 [id number] 140 Seqirus complet ed influenza , seasonal, injectabl e-pf 04/12/19 Given Ambulat ory Pharmac y influenza, injectable, quadrivalent- pf 2018 150 complet ed influenza , injectabl e, quadrival ent-pf 04/12/19 Given Ambulat ory Pharmac y influenza, seasonal, injectable-pf 2018 [id number] 140 Seqirus complet ed influenza , seasonal, injectabl e-pf 04/12/19 Given Ambulat ory Pharmac y influenza, injectable, quadrivalent, preservative free 2018 [id number], () Not Given influenza , injectabl e, quadrival ent, preservat rodrick free DoD anthrax vaccine 2018 [id number] Emergent Biosolutions complet ed anthrax vaccine 10/22/18 Given Ambulat ory Pharmac y anthrax vaccine 2018 [id number] 24 Emergent Biosolutions complet ed anthrax vaccine 10/22/18 Given Ambulat ory Pharmac y typhoid Vi capsular polysaccharid e vac 2018 [id number] 101 sanofi pasteur complet ed typhoid Vi capsular polysacch aride vac 09/07/18 Given Ambulat ory Pharmac y anthrax vaccine 2018 [id number] 24 Emergent Biosolutions complet ed anthrax vaccine 09/07/18 Given Ambulat ory Pharmac y poliovirus vaccine, inactivated 2018 [id number] 10 sanofi pasteur complet ed polioviru s vaccine, inactivat ed 09/07/18 Given Ambulat ory Pharmac y typhoid Vi capsular polysaccharid e vac 2018 [id number] 101 sanofi pasteur complet ed typhoid Vi capsular polysacch aride vac 09/07/18 Given Ambulat ory Pharmac y anthrax vaccine 2018 [id number] 24 Emergent Biosolutions complet ed anthrax vaccine 09/07/18 Given Ambulat ory Pharmac y poliovirus vaccine, inactivated 2018 [id number] 10 sanofi pasteur complet ed polioviru s vaccine, inactivat ed 09/07/18 Given Ambulat ory Pharmac y influenza, injectable, quadrivalent- pf 2017 [id number] 150 Seqirus complet ed influenza , injectabl e, quadrival ent-pf 04/22/18 Given Ambulat ory Pharmac y Influenza, injectable, quadrivalent, preservative free 7 2017 [id number] 150 Seqirus (SEQ) comple t ed Influenza , injectabl e, quadrival ent, preservat rodrick free DoD influenza, injectable, quadrivalent 2016 [id number] 158 complet ed influenza , injectabl e, quadrival ent 04/06/17 Given Ambulat ory Pharmac y influenza, injectable, quadrivalent, contains preservative 1 2016 [id number] 158 Transcribed (TRS) complet ed influenza , injectabl e, quadrival ent, contains preservat rodrick DoD measles/mumps /rubella virus vaccine 2016 [id number] 03 Merck & Company Inc complet ed measles/m umps/rube lla virus vaccine 11/07/16 Given Ambulat ory Pharmac y measles, mumps and rubella virus vaccine 2 2016 [id number] 03 Merck (MSD) complet ed measles, mumps and rubella virus vaccine DoD measles/mumps /rubella virus vaccine 2016 [id number] 03 Merck & Company Inc complet ed measles/m umps/rube lla virus vaccine 08/21/16 Given Ambulat ory Pharmac y measles, mumps and rubella virus vaccine 1 2016 [id number] 03 Merck (MSD) complet ed measles, mumps and rubella virus vaccine DoD influenza, seasonal, injectable-pf 2015 [id number] 140 Seqirus complet ed influenza , seasonal, injectabl e-pf 04/03/16 Given Ambulat ory Pharmac y Influenza, seasonal, injectable, preservative free 0 2015 [id number] 140 Seqirus (SEQ) comple t ed Influenza , seasonal, injectabl e, preservat rodrick free DoD influenza, seasonal, injectable-pf 2014 [id number] 140 CSL Behring complet ed influenza , seasonal, injectabl e-pf 03/23/15 Given Ambulat ory Pharmac y Influenza, seasonal, injectable, preservative free 4 2014 [id number] 140 CSL TriNovusapies, Inc. (CSL) complet ed Influenza , seasonal, injectabl e, preservat rodrick free DoD Influenza, injectable, MDCK-pf 2013 [id number] 153 Novartis Pharmaceutica ls complet ed Influenza , injectabl e, MDCK-pf 03/24/14 Given Ambulat ory Pharmac y Influenza, injectable, Madin Joan Canine Kidney, preservative free 0 2013 [id number] 153 Novartis Pharmaceutica l Prashant. (NOV) complet ed Influenza , injectabl e, Madin Austin Canine Kidney, preservat rodrick free DoD hepatitis A adult vaccine 2013 [id number] 52 GlaxoSmithKli ne complet ed hepatitis A adult vaccine 10/21/13 Given Ambulat ory Pharmac y hepatitis A vaccine, adult dosage 2 2013 [id number] 52 [facility] hepatitis A vaccine, adult [...] adult dosage 1 2012 [id number] 52 SmithSilverado (SKB) complet ed hepatitis A vaccine, adult dosage DoD tuberculin purified protein derivative 2012 [id number] 96 [facility] complet ed tuberculi n purified protein derivativ e 06/30/12 Given Ambulat ory Pharmac y influenza, seasonal, injectable-pf 2012 [id number] 140 CSL Behring complet ed influenza , seasonal, injectabl e-pf 06/30/12 Given Ambulat ory Pharmac y meningococcal A,C,Y,W-135 (MCV4P) 2012 [id number] 114 sanofi pasteur complet ed meningoco ccal A,C,Y,W-1 35 (MCV4P) 06/30/12 Given Ambulat ory Pharmac y adenovirus vaccine, live 2012 [id number] 5 143 Teva Pharmaceutica ls complet ed adenoviru s vaccine, live 06/30/12 Given Ambulat ory Pharmac y poliovirus vaccine, inactivated 2012 [id number] 10 sanofi pasteur complet ed polioviru s vaccine, inactivat ed 06/30/12 Given Ambulat ory Pharmac y tetanus, diphtheria, acellular pertu is 2012 [id number] 115 [facility] ed tetanus, diphtheri a, acellular pertussis 06/30/12 Given Ambulat ory Pharmac y tuberculin purified protein derivative 2012 [id number] 96 [facility] complet ed tuberculi n purified protein derivativ e 06/30/12 Given Ambulat ory Pharmac y poliovirus vaccine, inactivated 1 2012 [id number] 10 Sanofi Pasteur ([facility]) complet ed polioviru s vaccine, inactivat ed DoD meningococcal polysaccharid e (groups A, C, Y and W-135) diphtheria toxoid conjugate vaccine (MCV4P) 1 2012 [id number] 114 Sanofi Pasteur ([facility]) complet ed meningoco ccal polysacch aride (groups A, C, Y and W-135) diphtheri a toxoid conjugate vaccine (MCV4P) DoD tetanus toxoid, reduced diphtheria toxoid, and acellular pertu is vaccine, adsorbed 1 2012 [id number] 115 IdeaPaintSilverado (SKB) complet ed tetanus toxoid, reduced diphtheri a toxoid, and acellular pertussis vaccine, adsorbed DoD Influenza, seasonal, injectable, preservative free 1 2012 [id number] 140 CSL Biotherapies, Inc. (CSL) complet ed Influenza , seasonal, injectabl e, preservat rodrick free DoD Adenovirus, type 4 and type 7, live, oral 1 2012 [id number] 5 143 [facility] (BRR) complet ed Adenoviru s, type 4 [...] Prevention' s HIV diagnostic algorithm. Refer to [facility] Lab Guide for additional information : [email or web address]/ [email or web address] x Testing performed by [...] ADM Date DC Date Status Disposition [place] [address](Opt ometry Clinic BMT [facility]) OUTPATIENT [id number] CHAPO WORKMAN 07/06 Released w/o Limitations [facility] [place] [address](O ptometr y Clinic [facility]MT [facility]) [place] [address](MAS Lewis) OUTPATIENT [id number] Notes Entered by: PHANI TINSLEY 11 Jul 2012 0735 ------- ------- ------- ------- -- Cold/Pa in pack KYLEE_FABIAN SOLOMON S 07/11 Released w/o Limitations [facility] [place] [address](M Lewis) [place] [address](MAS Lewis) OUTPATIENT [id number] Notes Entered by: FABIAN MCLEAN 21 Jul 2012 0900 ------- ------- ------- ------- -- minor cold sx/ minor pain DAYDAY BRAGA 07/21 Released w/o Limitations [facility] [place] [address](M Lewis) [place] [address](MAS Lewis) OUTPATIENT [id number] Notes Entered by: PHANI TINSLEY 02 Aug 2012 0729 ------- ------- ------- ------- -- Cold/Pa in pack LEWIS AVILA 08/02 Released w/o Limitations [facility] [place] [address](M Lewis) [place] [address](MAS Lewis) OUTPATIENT [id number] Notes Entered by: DAYDAY BRAGA 17 Aug 2012 0757 ------- ------- ------- ------- -- Cold Pack DAYDAY BRAGA 08/17 Released w/o Limitations [facility] [place] [address](M Lewis) Theater Facility OUTPATIENT [id number] 4 Theater Provider 03/22 Released w/o Limitations [facility] 8344R-439 AMDS Between Visit [id number] 09/06 Discharge Disposition: Home or Self Care 8344R-4 39 AMDS 8344R-439 AMDS Between Visit [id number] 09/22 Discharge Disposition: Home or Self Care 8344R-4 39 AMDS 8344R-439 AMDS Between Visit [id number] 10/01 Discharge Disposition: Home or Self Care 8344R-4 39 AMDS 8344R-439 AMDS Between Visit [id number] 10/08 Discharge Disposition: Home or Self Care 8344R-4 39 AMDS 8344R-439 AMDS Outpatient [id number] ALLA DELGADILLODandre 10/17 Discharge Disposition: Home or Self Care 8344R-4 39 AMDS Procedures Combined list of: 1) Procedures from Department of Veterans Affairs facilities [facility], not all VA non-surgical procedures are included; 2) All procedures from the Department of Defense facilities. Procedure Procedure Type Code Date Perfomer Comments Sourc e No data available for this section Ambulatory Pharmacy Screening Test Of Visual Acuity, Quantitative, Bilateral Screening Test Of Visual Acuity, Quantitative, Bilateral 90919 07/06/2012 TOSHIA WHALEN. [place] [facility] Fitting Monofocals (Not For Aphakia) [facility] Fitting Monofocals (Not For Aphakia) 87641 07/06/2012 TOSHIA WHALEN. [facility] Social History Combined list of available smoking, tobacco, and other social history from Department of Defense and Veterans Affairs facilities. Social History Type Response Date Comment Sourc e Sex Representation Male (finding) 07/01/2022 Un known Organization Sexual Orientation Ambula tory Pharmacy Gender identity Ambulator y Pharmacy This section is an empty social history section. DoD Assessment and Plan Combined list of future care activities from Department of Defense and Veterans Affairs facilities (e.g., assessment and plan notes, appointments, orders, and referrals). Additional future care activities may be listed in the Plan of Care section. Result Assessment and Plan Date Source Assessment and Plan Extracted from:Title : PHA/MHA Author: GHASSAN DANIELSON Date: 10/19/24 Mbr came in for appt Addendum by CHUCK ESTEBAN on October 19, 2024 09:37 EDT ?Vitals: Blood Pressure:???117/69 Heart Rate: 61 Height: 72 Weight: 290 Medications: None Chronic Problems: None SF 507: Reviewed no changes from PHAQ Comments: Addendum by ALLA RIVER MD on October 19, 2024 09:57 EDT Chief Complaint: Member here for annual PHA.?No acute complaints.?IMR?green. HEENT:?Normal Joints:?Normal Lungs:?Normal Heart:?Normal Comments: ANNUAL PERIODIC HEALTH ASSESSMENT I. PATCHER BOWLING BALL INFORMATION AND DEMOGRAPHICS (SMI) 1. Last Name: ASHA 2. First Name: LIAM 3. Middle Name: BRAYDEN 4. Assessment Date: 5. : 6. Age: 39 7. Sex: M 8. DoD ID Number: [id number] 9. Service Branch: [employer] 10. 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 Status: [employer] 12. 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 Unit Name: [employer] FT 14. Duty Station/Location: [place] 15. UIC: [id number] 16. Is this your first Periodic Health Assessment (PHA)?: N 17. Are you enrolled in a secure messaging system with your health care provider?: N 18. Current contact information: Preferred Method: Email 1 DSN: [id number] Day Time Phone: [phone] Night Time Phone: [phone] Email 1: [email or web address] Email 2: Address: [address] City: [place] State: [place] Zip Code: [address] 19. Point of contact who can always reach you: Name: Melinda Plata Phone 1: [phone] Phone 2: EMAIL: Address: City: State: Zip Code: II. DEPLOYMENT INFORMATION (DEP) 1. [ 0 ] Total number of deployments in the PAST 5 YEARS 4. [ N ] Are you going to deploy within the NEXT 120 DAYS? III. 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 [ No ] Does your specialty require an operational duty physical exam? 4. [ No ] Are you currently enrolled in a medical surveillance/occupational health program?: No IV. MEDICAL CONDITIONS ([employer]): 1. Since your last PHA, have you experienced any of the following health conditions, and if so, what is your status? [ Chest pain ] Conditions with no medical care [ Head injury/Concussion/Traumatic Brain Injury, Periods of dizziness, fainting, or loss of consciousness, Persistent or recurring noises in head or ears ] Conditions with medical care, but no longer under treatment [ ] Conditions with medical care, and NOW under treatment 2. Since your last PHA, have you experienced any of the following health conditions, and if so, what is your status? [ Recurring muscle, joint, or low back pain ] Conditions with no medical care [ Recurring headaches/migraines ] Conditions with medical care, but no longer under treatment [ ] Conditions with medical care, and NOW under treatment 3. For any condition marked YES in question 1 or 2, are you currently on any profile or limited duty for that condition? [ ] Conditions 4. [ Yes ] Have you been based or stationed at a location where an open burn pit was used? 5. [ Yes ] Have you been exposed to toxic airborne chemicals or other airborne contaminants? 6. [ Yes ] Are you enrolled in the Airborne Hazards and Open Burn Pit Registry? 8. Have you had any surgery since your last PHA?: No 10.a. [ No ] Since your last PHA, has a health care provider recommended surgery(s) that you have not had? 11.a. [ No ] Do you currently require hearing aids, special medical supplies, CPAP, adaptive equipment, assistive technology devices, and/or other special accommodations? 12.a. [ No ] Do you have a waiver or profile for any part of your Service's physical fitness test? 13.a. [ No ] Do you have any problems wearing a gas mask, ballistic helmet, body armor, and/or chemical/biological protective garments? 14.a. [ No ] Have you ever been told by a health care provider that you SHOULD NOT receive an immunization for medical reasons? 15.a. [ No ] Do you have a permanent profile or an Assignment Limitation Code C? 16.a. [ No ] Are you on a temporary profile or limited duty? 17. [ 2 ] During the PAST 2 years, how many times have you been placed on a temporary profile or on limited duty? V. INDIVIDUAL MEDICAL READINESS (IMR) 1. [ No ] Do you have any allergies? 3. [ Not required ] Do you have red medical warning dog tags? 4. [ Yes ] Do you wear corrective lenses? 5. [ 2 or more ] How many pairs of glasses do you have? 6. [ Yes ] Do you have gas mask inserts? . BEHAVIORAL HEALTH (MHA) 1. a. [ family/relationship, employment family/relationship, employment ] Over the PAST MONTH, what major life stressors have you experienced that are a cause of significant concern or make it difficult for you to do your work, take care of things at home, or get along with other people (for example, serious conflicts with others, relationship problems, or a legal, disciplinary or financial problem)? 1. b. [ No ] Are you currently in treatment or getting professional help for this concern? 2. a. [ No ] In the PAST YEAR did you receive care for any mental health condition or concern such as, but not limited to post traumatic stress disorder (PTSD), depression, anxiety disorder, alcohol abuse or substance abuse? 3. [ None ] What prescription or over-the counter medications (including herbals/supplements) for sleep, pain, combat stress, or a mental health problem are you CURRENTLY taking? 4. a. [ No ] In the past 12 months, have you gambled? 5. a. [ 2-4 times a month ] How often do you have a drink containing alcohol? 5. b. [ 1 or 2 ] How many drinks containing alcohol do you have on a typical day when you are drinking? 5. c. [ Never ] How often do you have six or more drinks on one occasion? 6. Have you ever had any experience that was so frightening, horrible, or upsetting that in the PAST MONTH, you: 6. a. [ No ] Have had nightmares about it or thought about it when you did not want to? 6. b. [ No ] Tried hard not to think about it or went out of your way to avoid situations that remind you of it? 6. c. [ No ] Were constantly on guard, watchful or easily startled? 6. d. [ No ] [place] numb or detached from others, activities, or your surroundings? 6. e. [ Not answered ] [place] guilt or unable to stop blaming yourself or others for the event(s) or any problems the event(s) may have caused? 7. Over the LAST 2 WEEKS, how often have you been bothered by the following problems? 7. a. [ Not at all ] Little interest or pleasure in doing things 7. b. [ Not at all ] Feeling down, depressed, or hopeless 8. [ No ] Would you like to schedule an appointment with a health care provider to discuss any health concern(s)? 9. [ No ] Are you interested in receiving information or assistance for a stress, emotional or alcohol concern? 10. [ No ] Are you interested in receiving assistance for a family or relationship concern? 11. [ No ] Would you like to schedule a visit with a building guard deputy sheriff, mental health care provider, or a community support counselor? VII. FAMILY HISTORY AND LIFESTYLE (LIF) 1. [ Good ] Overall, how would you rate your health during the PAST MONTH? 2. [ Heart-related conditions, Diabet ] Member indicates that family members have the following problems 4. The following family members has/had a history of heart-related conditions: High Blood Pressure: Grandfather Heart Attack: Grandfather 5. The following family members has/had a history of diabetes: Type I: Grandfather, Sister 6. [ Yes ] I participate in moderate intensity physical activites at least 2.5 hours, or a combination of moderate and vigorous aerobic activites, for at least 75 minutes per week. 7. In a typical week, I do physical activities specifically designed to STRENGTHEN my muscles: [ 4 ] Day(s) per week 8. [ None ] What prescriptions or zbkb-otx-gfmueue medications are you CURRENTLY taking for health problems on a ROUTINE BASIS? 9. Which of the following products have you taken since your last PHA: Multi-Vitamins: Once a day 11. Think about the PAST 30 DAYS. How often did you eat/drink the following foods/beverages? [ 1 or 2 servings per week ] Fruits [ 3 to 6 servings per week ] Vegetables [ 3 to 6 servings per week ] Starchy Vegetables [ 1 serving per day ] Whole Grains [ 3 to 6 servings per week ] Dairy and Calcium Containing Foods [ Rarely or Never ] Fish [ 2 servings per day ] Lean Protein [ 1 or 2 servings per week ] Sugar-Sweetened Beverages ] Have you had a cholesterol check by a health healthcare applications analyst within the PAST 5 YEARS? 13.a. In the PAST 30 DAYS, which of the following products have you used on at least one day? None 15. Which of the following best describes your past tobacco use? I have never used tobacco products. 16. [ No ] Are you regularly exposed to secondhand smoke? 17. [ 7 to 9 hours ] During the LAST 2 WEEKS, how many hours of sleep did you get on most days? 18. [ Yes ] During the LAST 2 WEEKS, have you felt impaired or unable to adequately perform due to sleepiness or poor quality sleep? 19. [ No ] Have you had any unexplained weight loss or gain since your last PHA? 20. Member is not at risk for sexually transmitted infections. 22. Since your last PHA, what, if anything, have you and your partner used to keep from getting ? [ I am, or my partner is, currently . ] I am not actively taking steps to prevent as 23. [ No ] In the last year, have you or your partner had a scare, where you were not trying to get but were worried enough to use a home test? X. OTHER MEDICAL (OTH) 1. [ 6 ] Rate the amount of pain you have had, on average, over the PAST 24 HOURS 2. [ No ] Are you receiving treatment for pain? 3. [ No ] Since your last PHA, have you received care or treatment for any medical and/or mental health condition(s) from a civilian or non- facility? 5. Member acknowledged responsibility for reporting health issues. 7. [ No ] Woud you like to schedule an appointment with a health care provider to discuss any health concerns? XI. SEPARATION AND JAIL 1. [ No ] Are you planning to separate or retire within the next year from Active Duty or [place] Duty (activated for greater than 30 continuous days) OR do you intend to file a claim for disability compensation with the Veterans Benefits Administration? PART B. RECORD REVIEW AND RECOMMENDATIONS I. RECORD REVIEWER INFORMATION 1. Last Name: CARLITO 2. First Name: CHUCK 3. Middle Name: Shyann 4. Service Branch: [employer] 5. Status: [employer] or Full-Time Support 6. 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 EMAIL: [email or web address] 8. Facility: [facility] 9. Unit: [facility] 10. Address: [address] [place] [address] 11. State: [facility]. Zip Code: [address] 13. 14. Date Record Review: II. MEDICAL SCREENING 1. [ ] Date of state farm agent team member's most recent PHA 2. [ 5 feet 11 inches Date: ] state farm agent team member's most recently documented height 3. [ 242 pounds Date: ] state farm agent team member's most recently documented weight 4. [ 124/75 Date: ] state farm agent team member's most recently documented blood pressure reading 5. [ No ] Does the state farm agent team member have a history of abnormal blood pressure since their last PHA? 6. [ Yes ] Does the state farm agent team member have a laboratory test of sickle cell trait documented in their permanent medical record? 7. [ No Cholesterol Test Documented ] What is the date of the state farm agent team member's most recently documented cholesterol test? 9. [ No Active Medications Documented ] List of state farm agent team member's active medications listed in their permanent medical record 10. [ No ] Is there a discrepancy between the active medication record review and the state farm agent team member's self-reported list of medications? 11. [ Seen for knee pain, concussion ] List documented significant care the state farm agent team member has received since their last PHA from a provider OUTSIDE the Health System 12. [ Yes: Seen for knee pain, concussion ] Is there a discrepancy between the state farm agent team member's list of OUTSIDE care (from OT5), and the OUTSIDE care found in the record? 13. [ No Inside Care Documented ] List documented significant care the state farm agent team member has received since their last PHA from a provider INSIDE the Health System 15. [ Not Answered ] Confirm that vaccine exemptions are listed in the medical record for each vaccine listed IV. FAMILY HISTORY AND LIFESTYLE 1. 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 VII. INDIVIDUAL MEDICAL READINESS 1. [ No ] Does the state farm agent team member have an Assignment Limitation Code C? 3. [ Classification: 1 ] Most recently documented dental exam 4. [ Yes ] Is the state farm agent team member current on all required immunizations in the immunization tracking system? 5. [ Yes ] Is the state farm agent team member current with Service-specific requirements for glasses and gas mask inserts? 6. Does the state farm agent team member have the following laboratory tests documented in their permanent medical record? [ Yes ] HIV test within the PAST 24 months [ Yes ] G6PD results on file [ Yes ] Blood type and Rh on file [ Yes ] DNA test on file IX. ADDITIONAL RECORD REVIEWER COMMENTS 1. This record review does NOT have a need for provider notification or referral.2. Additional comments about this record review that need to be forwarded to the Health Public Interviewer completing PART C: Life stressors: family/relationship, employment Reported multiple health conditions Supp: multi vit felt impaired due to sleepiness Pain scale 6/10 Per JLV seen for concussion and knee pain Date Record Review Completed: PART C. HEALTH CARE PROVIDER I. MENTAL HEALTH ASSESSMENT (MHA) PROVIDER INFORMATION 1. Last Name: SUSAN 2. First Name: ALLA 3. Middle Name: 4. Service Branch: [employer] 5. Status: Reservist 6. Title: Physician (DO ONIEL) 7. EMAIL: [email or web address] 8. Facility: [facility] 9. Unit: [facility] 10. Address: [address] [place] [address] [place] 11. State: [place] 12. Zip Code: [address] 13. Phone: [phone] 14. Date HCP Review initiated: 1. Member marked that they have a concern or a difficulty with a major life stressor: family/relationship, employment Additional info: Referral is not indicated because there is no significant impairment. 2. Address concerns identified on member questions 2 and 3. History of mental health care: N/A Member's response: Provider's comments: Medications: N/A Member's response: Provider's comments: 3. Member's AUDIT-C screening score was 2. (nothing required) 4. Member did not bandar yes on two or more of questions 6a through 6e. 5. Member did not bandar More than half the days or nearly every day on question 7a or 7b. 6. Suicide risk evaluation. 6. a. Ask: Over the past month, have you wished you were or wished you could go to sleep and not wake up?: No 6. b. Ask: Have you actually had any thoughts of killing yourself?: No 6. f. 1. Ask: In you lifetime, have you done anything, started to do anything, or prepared to do anything to end your life?: No 6. g. Further risk assessment comments: 7. Member states that they have not had thoughts or concerns over the past month that they might hurt or lose control with someone. 9. Summary of Provider's identified concerns needing referrals: None 11. Comments: 13. Supplemental services recommended/information provided: No supplemental services required Date MHA Certified: III. PERIODIC HEALTH ASSESSMENT (PHA) PROVIDER INFORMATION 1. Last Name: SUSAN 2. First Name: ALLA 3. Middle Name: 4. Service Branch: [employer] 5. Status: Reservist 6. Title: Physician (DO ONIEL) 7. EMAIL: [email or web address] 8. Facility: [facility] 9. Unit: [facility] 10. Address: [address] [place] [address] 11. State: [place] 12. Zip Code: [address] 13. Phone: [phone] 14. Date HCP Review initiated: IV. PERIODIC HEALTH ASSESSMENT PROVIDER RECOMMENDATIONS and REFERRALS 1. Provider concerns with this assessment: No issues or concerns identified V. SUMMARY AND COMMENTS 1. Additional information summarizing findings during the state farm agent team member assessment: 2. Provider Comments: . INDIVIDUAL MEDICAL READINESS DISPOSITION DETERMINATION SHANNON: Ready DEN: Ready IMM: Ready LAB: Ready ME: Ready IMR Status: Fully Medically Ready VII. SERVICE MEDICAL DEPLOYABILITY EVALUATION INDICATED Based on your review of all documentation, is the state farm agent team member medically deployable without limitations? Reference [facility] 6490.07 Yes (state farm agent team member DOES NOT currently have a medical condition that limits deployability) Date PHA Completed: END OF [id number] REPORT Impression:Does not meet?medical standards per KELIN 48-123/MSD. Disposition:?No AF469 changes based on this encounter.[employer] Qualified. Future Appointments Appointment Date: 10/19/2024 09:30:00 AM Scheduled Provider: Location: [address] [address] Appointment Type: NG/R FTR 10/19/[address] [place] [address] AMD Functional Status Combined list of recent functional and cognitive assessments recorded at [facility] [employer] [facility] ([facility]).VA Functional Smith Measurement (FIM) Scale: 1 = Total Assistance (Subject = 0% +), 2 = Maximal Assistance (Subject = 25% +), 3 = Moderate Assistance (Subject = 50% +), 4 = Minimal Assistance (Subject = 75% +), 5 = Supervision, 6 = Modified Smith (Device), 7 = Complete Smith (Timely, Safely). Assessment Date/Time Source Assessment Type Assessment Skill Assessment Score Assessment Details No data available for this section
--- OUTSIDE RECORDS SUMMARY | 2024-10-19 15:51 | XMS_ITS | Clinical Summary ---
Author Organization [facility] ity Address [address] [place] [address] Care Team Providers Care Receiving Tank Operator Name Role Phone Unavailable Primary Care [...]
--- OUTSIDE RECORDS SUMMARY | 2024-10-19 15:51 | XMS_ITS | Patient Health Record ---
Author Organization [facility] [place] Address [address] [facility] [place] [address] Care Team Providers Care Non Garment Sewing Machine Operator Name Role Phone Khari Rosas Primary Care Provider Unav Donnell Martinez Unavailable [phone] Allergies No Known Allergies Reason For Referral [...] X ray : Foot, right 3V 01/26/2023 [id number] TENDON SHEATH/LIGAMENT 1 Insurance Providers Payer Name Payer Address Payer Phone Subscriber Number Group Number Insured Name Patient Relationship to Insured Coverage Start Date Coverage End Date [employer] [address] [place] [id number] [phone] [id number] Dev Siu Self - patient is the insured Medical (General) History Medical History History ICD Code Chicken pox Surgical History Surgery Date(Month/Year) appendectomy 1997
--- NOTE | 2024-10-19 15:56 | AM.OFFWIN_ITS ---
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 - The fall occurred while ascending stai rs at the [facility], with impact on the right wrist. - Immediate pain was noted post-fall wit h limitation in movement, particularly with leftward rotation of the wrist. - There is localized shooting pain upon rotation, but no pain upon palpation Physical Exam General: Cooperative, healthy appearing, comfortable, no acute distress and well developed Orientation: Patient oriented x3 Limitations: Limited range of motion in the left wrist due to pain Head: Normal to inspection Ears: Hearing grossly normal bilaterally Nose: Normal External nose present Face and sinus: Normal facial exam Eyes: Appearance normal, both eyes and all related structures Neck: Normal visual inspection and Yes full ROM Respiratory: Normal respiratory effort and able to speak in complete sentences. Skin: No rashes or lesions noted Neuro: Patient oriented x3 Extremities: abrasions on medial aspect of distal right wrist. no TTP along medial and lateral forearm, wrist ROM pain with flexion, no pain with extension, pain with supination and pronation. no ttp right hand or digits, digits NVI. radial pulse intact. [facility] Medical History Head injury Surgical History History of appendectomy Family History Paternal Grandfather Heart disease Diabetes Social History Housing: Condominium Alcohol intake: current Alcohol intake frequency: a few times a week Patient Tobacco Use Status: Never used Tobacco e-Cigarette/Vaping Use: Never Used service: Yes Current occupational status: employed Current occupation: Cognitive needs: No Hearing needs: No Vision needs: Yes Review of Systems Const All systems reviewed & are unremarkable except as noted in HPI and below Physical Exam Vital Signs: Last Vital Signs Pulse 63 10/19/24 16:06 BP 122/80 10/19/24 16:06 Pulse Ox 98 10/19/24 16:06 Oxygen Delivery Method Room Air 10/19/24 16:06 Assessment & Plan Assessment & Plan (1) Right wrist pain: Code(s): M25.531 - Pain in right wrist Plan: An x-ray was ordered to evaluate the right wrist post-fall for potential injuries. Immediate attention to imaging was required to rule out fractures. The patient was given directions on obtaining the x-ray with a plan to return for result analysis and subsequent management. Preserving wrist function and addressing pain through imaging and further evaluation remains the priority. Wrist x-ray does not show any acute fracture or dislocation so we placed patient in a velcro ulnar wrist brace. Recommended he use naproxen every 12 hours around the clock for the next 3 days and then use it as needed as well as ice. If no improvement in his pain over the next couple of weeks, he should follow up with his PCP or return to the clinic. Patient was informed and verbally consented to the use of an ambient scribe for clinic note documentation during this visit. (2) Fall (on) (from) other stairs and steps, initial encounter: Code(s): W10.8XXA - Fall (on) (from) other stairs and steps, initial encounter Plan: as above Orders: Orders XR wrist RT w scaphoid Today M25.531 - Pain in right wrist, W10.8XXA - Fall (on) (from) other stairs and steps, initial encounter Coding Level of Care Code Est Pt Level 4 (20508) Diagnoses Right wrist pain M25.531 Fall (on) (from) other stairs and steps, initial encounter W10.8XXA
[2024-10-19 16:06] VITALS: BP 122/80; PULSE 63; O2SAT 98
== END 2024-10-19 16:53 | disposition home or self-care (01) ==
PROVIDERS: PCP Nurse Practitioner Family; Visit Provider Physician Assistant
DX: M25.531 Pain in right wrist (principal); W10.8XXA Fall (on) (from) other stairs and steps, initial encounter

== ENCOUNTER 2024-10-19 15:48 | Outpatient (REF) | payer OTHER, SELFPAY ==
--- NOTE | ~2024-10-19 | XR_ITS ---
EXAMINATION: XR WRIST, RIGHT CLINICAL INFORMATION: M25.531 - Pain in right wrist COMPARISON: None available. TECHNIQUE: PA, lateral, and oblique views of the right wrist. FINDINGS: The bones and soft tissues are normal. No fracture. Alignment is anatomic with normal joint spaces. No erosions or abnormal soft tissue calcifications. XR/XR wrist RT w scaphoid IMPRESSION: Normal right wrist. Electronically signed by: Fito Crabtree MD 10/19/2024 04:31 PM EDT
--- OUTSIDE RECORDS SUMMARY | 2024-10-19 16:14 | XMS_ITS | Clinical Summary ---
Author Organization [facility] ity Address [address] [place] [address] Care Team Providers Care Glass Vial Bending Conveyor Feeder Name Role Phone Unavailable Primary Care Provider [...]
--- OUTSIDE RECORDS SUMMARY | 2024-10-19 16:14 | XMS_ITS | Continuity of Care Document ---
Author Name [facility] Organization [facility] Care Team Providers Care Waterproofing Supervisor Name Role Phone [facility] Unavailable Unavailable Problems Combined list of problems [...] Known Allergies Drug allergy (disorder) active 07/11/2012 [facility] [place] [address] Immunizations Combined list of available immunizations from the Department of Defense and Veterans Affairs facilities. Immunization Series Date Given Administered By Site Reaction Lot Number CVX Code Drug Geospatial Extractor Analysis Status Comments Source influenza, injectable, quadrivalent- pf 2022 150 GlaxoSmithKli ne complet ed influenza , injectabl e, quadrival ent-pf 05/25/23 Given Ambulat ory Pharmac y tetanus, diphtheria, acellular pertu is 2022 [id number] sanofi pasteur complet ed tetanus, diphtheri a, acellular pertussis 07/15/22 Given Ambulat ory Pharmac y Influenza, inj, MDCK, quadrivalent- pf 2021 171 Seqirus complet ed Influenza , inj, MDCK, quadrival ent-pf 03/16/22 Given Ambulat ory Pharmac y COVID Vaccine Pfizer 2020 [id number] PFIZER complet ed COVID Vaccine Pfizer 05/24/21 Given Ambulat ory Pharmac y COVID Vaccine Pfizer 2020 [id number] 208 PFIZER complet ed COVID Vaccine Pfizer 05/24/21 Given Ambulat ory Pharmac y influenza, seasonal, injectable 2020 [id number] 141 Seqirus complet ed influenza , seasonal, injectabl e 03/26/21 Given Ambulat ory Pharmac y influenza, seasonal, injectable 2020 [id number] 141 Seqirus complet ed influenza , seasonal, injectabl e 03/26/21 Given Ambulat ory Pharmac y Influenza, inj, MDCK, quadrivalent- pf 2020 171 complet ed Influenza , inj, MDCK, quadrival ent-pf 03/26/21 Given Ambulat ory Pharmac y Influenza, injectable, MDCK, preservative free, quadrivalent 2020 [id number], () Not Given Influenza , injectabl e, MDCK, preservat rodrick free, quadrival ent DoD COVID Vaccine Moderna 2020 [id number] complet ed COVID Vaccine Moderna 07/25/20 Given Ambulat ory Pharmac y COVID Vaccine Moderna 2020 [id number] 207 complet ed COVID Vaccine Moderna 07/25/20 Given Ambulat ory Pharmac y COVID Vaccine Moderna 2020 [id number] 207 complet ed COVID Vaccine Moderna 06/26/20 Given Ambulat ory Pharmac y COVID Vaccine Moderna 2020 [id number] 207 complet ed COVID Vaccine Moderna 06/26/20 [...] quadrival ent DoD influenza, seasonal, injectable-pf 2018 [id number] 140 Seqirus complet ed influenza , seasonal, injectabl e-pf 04/12/19 Given Ambulat ory Pharmac y influenza, injectable, quadrivalent- pf 2018 150 complet ed influenza , injectabl e, quadrival ent-pf 04/12/19 Given Ambulat ory Pharmac y influenza, seasonal, injectable-pf 2018 [id number] 140 Seqirus complet ed influenza , seasonal, injectabl e-pf 04/12/19 Given Ambulat ory Pharmac y influenza, injectable, quadrivalent, preservative free 2018 [id number], () Not Given influenza , injectabl e, quadrival ent, preservat rodrick free DoD anthrax vaccine 2018 [id number] Emergent Biosolutions complet ed anthrax vaccine 10/22/18 Given Ambulat ory Pharmac y anthrax vaccine 2018 [id number] 24 Emergent Biosolutions complet ed anthrax vaccine 10/22/18 Given Ambulat ory Pharmac y typhoid Vi capsular polysaccharid e vac 2018 [id number] 101 sanofi pasteur complet ed typhoid Vi capsular polysacch aride vac 09/07/18 Given Ambulat ory Pharmac y anthrax vaccine 2018 [id number] 24 Emergent Biosolutions complet ed anthrax vaccine 09/07/18 Given Ambulat ory Pharmac y poliovirus vaccine, inactivated 2018 [id number] 10 sanofi pasteur complet ed polioviru s vaccine, inactivat ed 09/07/18 Given Ambulat ory Pharmac y typhoid Vi capsular polysaccharid e vac 2018 [id number] 101 sanofi pasteur complet ed typhoid Vi capsular polysacch aride vac 09/07/18 Given Ambulat ory Pharmac y anthrax vaccine 2018 [id number] 24 Emergent Biosolutions complet ed anthrax vaccine 09/07/18 Given Ambulat ory Pharmac y poliovirus vaccine, inactivated 2018 [id number] 10 sanofi pasteur complet ed polioviru s vaccine, inactivat ed 09/07/18 Given Ambulat ory Pharmac y influenza, injectable, quadrivalent- pf 2017 [id number] 150 Seqirus complet ed influenza , injectabl e, quadrival ent-pf 04/22/18 Given Ambulat ory Pharmac y Influenza, injectable, quadrivalent, preservative free 7 2017 [id number] 150 Seqirus (SEQ) comple t ed Influenza , injectabl e, quadrival ent, preservat rodrick free DoD influenza, injectable, quadrivalent 2016 [id number] 158 complet ed influenza , injectabl e, quadrival ent 04/06/17 Given Ambulat ory Pharmac y influenza, injectable, quadrivalent, contains preservative 1 2016 [id number] 158 Transcribed (TRS) complet ed influenza , injectabl e, quadrival ent, contains preservat rodrick DoD measles/mumps /rubella virus vaccine 2016 [id number] 03 Merck & Company Inc complet ed measles/m umps/rube lla virus vaccine 11/07/16 Given Ambulat ory Pharmac y measles, mumps and rubella virus vaccine 2 2016 [id number] 03 Merck (MSD) complet ed measles, mumps and rubella virus vaccine DoD measles/mumps /rubella virus vaccine 2016 [id number] 03 Merck & Company Inc complet ed measles/m umps/rube lla virus vaccine 08/21/16 Given Ambulat ory Pharmac y measles, mumps and rubella virus vaccine 1 2016 [id number] 03 Merck (MSD) complet ed measles, mumps and rubella virus vaccine DoD influenza, seasonal, injectable-pf 2015 [id number] 140 Seqirus complet ed influenza , seasonal, injectabl e-pf 04/03/16 Given Ambulat ory Pharmac y Influenza, seasonal, injectable, preservative free 0 2015 [id number] 140 Seqirus (SEQ) comple t ed Influenza , seasonal, injectabl e, preservat rodrick free DoD influenza, seasonal, injectable-pf 2014 [id number] 140 CSL Behring complet ed influenza , seasonal, injectabl e-pf 03/23/15 Given Ambulat ory Pharmac y Influenza, seasonal, injectable, preservative free 4 2014 [id number] 140 CSL Yell.ruapies, Inc. (CSL) complet ed Influenza , seasonal, injectabl e, preservat rodrick free DoD Influenza, injectable, MDCK-pf 2013 [id number] 153 Novartis Pharmaceutica ls complet ed Influenza , injectabl e, MDCK-pf 03/24/14 Given Ambulat ory Pharmac y Influenza, injectable, Madin Joan Canine Kidney, preservative free 0 2013 [id number] 153 Novartis Pharmaceutica l Prashant. (NOV) complet ed Influenza , injectabl e, Madin [place] Canine Kidney, preservat rodrick free DoD hepatitis A adult vaccine 2013 [id number] 52 GlaxoSmithKli ne complet ed hepatitis A adult vaccine 10/21/13 Given Ambulat ory Pharmac y hepatitis A vaccine, adult dosage 2 2013 [id number] [facility] hepatitis A vaccine, adult [...] adult dosage 1 2012 [id number] 52 [employer] (SKB) complet ed hepatitis A vaccine, adult dosage DoD tuberculin purified protein derivative 2012 [id number] [address] [facility] complet ed tuberculi n purified protein derivativ e 06/30/12 Given Ambulat ory Pharmac y influenza, seasonal, injectable-pf 2012 [id number] 140 CSL Behring complet ed influenza , seasonal, injectabl e-pf 06/30/12 Given Ambulat ory Pharmac y meningococcal A,C,Y,W-135 (MCV4P) 2012 [id number] 114 sanofi pasteur complet ed meningoco ccal A,C,Y,W-1 35 (MCV4P) 06/30/12 Given Ambulat ory Pharmac y adenovirus vaccine, live 2012 [id number] 5 143 Teva Pharmaceutica ls complet ed adenoviru s vaccine, live 06/30/12 Given Ambulat ory Pharmac y poliovirus vaccine, inactivated 2012 [id number] 10 sanofi pasteur complet ed polioviru s vaccine, inactivat ed 06/30/12 Given Ambulat ory Pharmac y tetanus, diphtheria, acellular pertu is 2012 [id number] 115 [facility] complet ed tetanus, diphtheri a, acellular pertussis 06/30/12 Given Ambulat ory Pharmac y tuberculin purified protein derivative 2012 [id number] [address] [facility] complet ed tuberculi n purified protein derivativ e 06/30/12 Given Ambulat ory Pharmac y poliovirus vaccine, inactivated 1 2012 [id number] 10 Sanofi Pasteur ([facility]) complet ed polioviru s vaccine, inactivat ed DoD meningococcal polysaccharid e (groups A, C, Y and W-135) diphtheria toxoid conjugate vaccine (MCV4P) 1 2012 [id number] 114 Sanofi Pasteur ([facility]) complet ed meningoco ccal polysacch aride (groups A, C, Y and W-135) diphtheri a toxoid conjugate vaccine (MCV4P) DoD tetanus toxoid, reduced diphtheria toxoid, and acellular pertu is vaccine, adsorbed 1 2012 [id number] 115 [employer] (SKB) complet ed tetanus toxoid, reduced diphtheri a toxoid, and acellular pertussis vaccine, adsorbed DoD Influenza, seasonal, injectable, preservative free 1 2012 [id number] 140 CSL Biotherapies, Inc. (CSL) complet ed Influenza , seasonal, injectabl e, preservat rodrick free DoD Adenovirus, type 4 and type 7, live, oral 1 2012 [id number] 5 143 [facility] (BRR) complet ed Adenoviru s, type 4 [...] Prevention' s HIV diagnostic algorithm. Refer to [facility] Lab Guide for additional information : [email or web address]://[employer] [email or web address]. 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 [place] [address](M Lewis) [place] [address](MAS Lewis) OUTPATIENT [id number] Notes Entered by: FABIAN MCLEAN 21 Jul 2012 0900 ------- ------- ------- ------- -- minor cold sx/ minor pain DAYDAY BRAGA 07/21 Released w/o Limitations [facility] [place] [address](M Lewis) [place] [address](MAS Lewis) OUTPATIENT [id number] Notes Entered by: PHANI TINSLEY 02 Aug 2012 0729 ------- ------- ------- ------- -- Cold/Pa in pack LEWIS AVILA 08/02 Released w/o Limitations [facility] [place] [address](M Lewis) [place] [address](MAS Lewis) OUTPATIENT [id number] Notes Entered by: DAYDAY BRAGA 17 Aug 2012 0757 ------- ------- ------- ------- -- Cold Pack DAYDAY BRAGA 08/17 Released w/o Limitations [facility] [place] [address](M Lewis) Theater Facility OUTPATIENT [id number] 4 Theater Provider 03/22 Released w/o Limitations [facility] 8344R-439 AMDS Between Visit [id number] 09/06 Discharge Disposition: Home or Self Care 8344R-4 39 AMDS 8344R-439 AMDS Between Visit [id number] 09/22 Discharge Disposition: Home or Self Care 8344R-4 39 AMDS 8344R-439 AMDS Between Visit [id number] 10/01 Discharge Disposition: Home or Self Care 8344R-4 39 AMDS 8344R-439 AMDS Between Visit [id number] 10/08 Discharge Disposition: Home or Self Care 8344R-4 39 AMDS 8344R-439 AMDS Outpatient [id number] ALLA DELGADILLODandre 10/17 Discharge Disposition: Home or Self Care 8344R-4 39 AMDS Procedures Combined list of: 1) Procedures from Department of Veterans Affairs facilities [facility], not all VA non-surgical procedures are included; 2) All procedures from the Department of Defense facilities. Procedure Procedure Type Code Date Perfomer Comments Sour e Screening Test Of Visual Acuity, Quantitative, Bilateral Screening Test Of Visual Acuity, Quantitative, Bilateral 16241 07/06/2012 TOSHIA WHALEN [employer] [facility] Fitting Monofocals (Not For Aphakia) [facility] [facility] Fitting Monofocals (Not For Aphakia) 06157 07/06/2012 TOSHIA WHALEN. [place] No data available for this section Ambulatory Pharmacy Social History Combined list of available smoking, tobacco, and other social history from Department of Defense and Veterans Affairs facilities. Social History Type Response Date Comment Sourc e Sex Representation Male (finding) 07/01/2022 Un known Organization This section is an empty social history section. DoD Sexual Orientation Ambula tory Pharmacy Gender identity Ambulator y Pharmacy Assessment and Plan Combined list of future [...] Heart:?Normal Comments: ANNUAL PERIODIC HEALTH ASSESSMENT I. 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 Last Name: ASHA 2. First Name: LIAM 3. Middle Name: BRAYDEN 4. Assessment Date: 5. : 6. Age: 39 7. Sex: M 8. DoD ID Number: [id number] 9. Service Branch: [employer] 10. 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 Status: [employer] [place] 12. 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 Unit Name: [address] CONTINGENCY RESPON FT 14. Duty Station/Location: [place] 15. UIC: [id number] 16. Is this your first Periodic Health Assessment (PHA)?: N 17. Are you enrolled in a secure messaging system with your health care provider?: N 18. Current contact information: Preferred Method: Email 1 DSN: [id number] Day Time Phone: [phone] Night Time Phone: [phone] Email 1: [email or web address] Email 2: Address: [address] City: [place] State: [place] Zip Code: [address] 19. Point of contact who can always reach you: Name: Melinda Plata Phone 1: [phone] Phone 2: EMAIL: Address: City: State: Zip Code: II. DEPLOYMENT INFORMATION (DEP) 1. [ 0 ] Total number of deployments in the PAST 5 YEARS 4. [ N ] Are you going to deploy within the NEXT 120 DAYS? III. OCCUPATIONAL INFORMATION (OCC) 1 [ 8Q124D ] What is your occupational code 2. [ [employer] ] Describe your typical duty 3. [ No ] Does your specialty require an operational duty physical exam? 4. [ No ] Are you currently enrolled in a medical surveillance/occupational health program?: No IV. MEDICAL CONDITIONS ([facility]): 1. Since your last PHA, have you [...] easily startled? 6. d. [ No ] [place] numb or detached from others, activities, or your surroundings? 6. e. [ Not answered ] [place] guilt or unable to stop blaming yourself [...] like to schedule a visit with a journalism teacher, mental health care provider, or a community [...] 8. [ None ] What prescriptions or tduf-boa-wpdddbj medications are you CURRENTLY taking for health [...] had a cholesterol check by a health animal care worker within the PAST 5 YEARS? 13.a. In [...] discuss any health concerns? XI. SEPARATION AND SNF 1. [ No ] Are you planning to separate or retire within the next year from Active Duty or [place] Duty (activated for greater than 30 continuous days) OR do you intend to file a claim for disability compensation with the Veterans Benefits Administration? PART B. RECORD REVIEW AND RECOMMENDATIONS I. RECORD REVIEWER INFORMATION 1. Last Name: CARLITO 2. First Name: CHUCK 3. Middle Name: Shyann 4. Service Branch: [employer] 5. Status: Active [employer] [place] or Full-Time Support 6. 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 EMAIL: [email or web address] 8. Facility: [facility] 9. Unit: [facility] 10. Address: [address] [place] [address] 11. State: [facility]. Zip Code: [address] 13. 14. Date Record Review: II. MEDICAL SCREENING 1. [ ] Date of interior design faculty member's most recent PHA 2. [ 5 feet 11 inches Date: ] interior design faculty member's most recently documented height 3. [ 242 pounds Date: ] interior design faculty member's most recently documented weight 4. [ 124/75 Date: ] interior design faculty member's most recently documented blood pressure reading 5. [ No ] Does the interior design faculty member have a history of abnormal blood pressure since their last PHA? 6. [ Yes ] Does the interior design faculty member have a laboratory test of sickle cell trait documented in their permanent medical record? 7. [ No Cholesterol Test Documented ] What is the date of the interior design faculty member's most recently documented cholesterol test? 9. [ No Active Medications Documented ] List of interior design faculty member's active medications listed in their permanent medical record 10. [ No ] Is there a discrepancy between the active medication record review and the interior design faculty member's self-reported list of medications? 11. [ Seen for knee pain, concussion ] List documented significant care the interior design faculty member has received since their last PHA from a provider OUTSIDE the Health System 12. [ Yes: Seen for knee pain, concussion ] Is there a discrepancy between the interior design faculty member's list of OUTSIDE care (from OT5), and the OUTSIDE care found in the record? 13. [ No Inside Care Documented ] List documented significant care the interior design faculty member has received since their last PHA from a provider INSIDE the Health System 15. [ Not Answered ] Confirm that vaccine exemptions are listed in the medical record for each vaccine listed IV. FAMILY HISTORY AND LIFESTYLE 1. [ Yes ] Does the YQ2374 reflect the interior design faculty member's reported family history? VII. INDIVIDUAL MEDICAL READINESS 1. [ No ] Does the interior design faculty member have an Assignment Limitation Code C? 3. [ Classification: 1 ] Most recently documented dental exam 4. [ Yes ] Is the interior design faculty member current on all required immunizations in the immunization tracking system? 5. [ Yes ] Is the interior design faculty member current with Service-specific requirements for glasses and gas mask inserts? 6. Does the interior design faculty member have the following laboratory tests documented [...] need to be forwarded to the Health Heat Treat Worker completing PART C: Life stressors: family/relationship, employment [...] 6. Title: Physician (DO ONIEL) 7. EMAIL: [email or web address] 8. Facility: [facility] 9. Unit: [facility] 10. Address: [address] [place] [address] [place] 11. State: [place] 12. Zip Code: [address] 13. Phone: [phone] 14. Date HCP Review initiated: 1. Member [...] ALLA 3. Middle Name: 4. Service Branch: [place] 5. Status: Reservist 6. Title: Physician (DO ONIEL) 7. EMAIL: [email or web address] 8. Facility: [facility] 9. Unit: [facility] 10. Address: [address] [place] [address] 11. State: [place] 12. Zip Code: [address] 13. Phone: [phone] 14. Date HCP Review initiated: IV. PERIODIC HEALTH ASSESSMENT PROVIDER RECOMMENDATIONS and REFERRALS 1. Provider concerns with this assessment: No issues or concerns identified V. SUMMARY AND COMMENTS 1. Additional information summarizing findings during the interior design faculty member assessment: 2. Provider Comments: . INDIVIDUAL MEDICAL READINESS DISPOSITION DETERMINATION SHANNON: Ready DEN: Ready IMM: Ready LAB: Ready ME: Ready IMR Status: Fully Medically Ready VII. SERVICE MEDICAL DEPLOYABILITY EVALUATION INDICATED Based on your review of all documentation, is the interior design faculty member medically deployable without limitations? Reference [facility] 6490.07 Yes (interior design faculty member DOES NOT currently have a medical condition that limits deployability) Date PHA Completed: END OF [id number] REPORT Impression:Does not meet?medical standards per KELIN 48-123/MSD. Disposition:?No AF469 changes based on this encounter.World-Wide Qualified. Future Appointments Appointment Date: 10/19/2024 09:30:00 AM Scheduled Provider: Location: [address] [place] [address] Appointment Type: NG/R FTR 10/19/[address] [place] [address] AMD Functional Status Combined list of recent functional and cognitive assessments recorded at Department of Defense and Veterans Affairs (VA).VA Functional Forest Measurement (FIM) Scale: 1 = Total Assistance (Subject = 0% +), 2 = Maximal Assistance (Subject = 25% +), 3 = Moderate Assistance (Subject = 50% +), 4 = Minimal Assistance (Subject = 75% +), 5 = Supervision, 6 = Modified Forest (Device), 7 = Complete Forest (Timely, Safely). Assessment Date/Time Source Assessment Type Assessment Skill Assessment Score Assessment Details No data available for this section
== END 2024-10-19 15:49 | disposition home or self-care (01) ==
LOC: HO.HMGCX 15:48
PROVIDERS: PCP Nurse Practitioner Family; Visit Provider Physician Assistant
DX: M25.531 Pain in right wrist (principal); W10.8XXA Fall (on) (from) other stairs and steps, initial encounter
CPT/HCPCS: 73110; 99212

== ENCOUNTER → 2024-10-19 16:15 | Outpatient (BNV) | payer OTHER, SELFPAY | PROVIDERS: PCP Nurse Practitioner Family; Visit Provider Radiology Diagnostic Radiology | DX: M25.531 Pain in right wrist (principal) | CPT/HCPCS: 73110 ==

== ENCOUNTER 2024-11-13 11:08 | Outpatient (AMB) | payer OTHER, SELFPAY ==
--- OUTSIDE RECORDS SUMMARY | 2024-11-13 11:57 | XMS_ITS | Patient Health Record ---
Author Organization [facility] Rebekah moy Turner Address [address] [place] [address] Care Team Providers Care Die Forger Name Role Phone Khari Rosas Primary Care Provider Unav Donnell Martinez Unavailable [phone] Allergies No Known Allergies Reason For Referral [...] X ray : Foot, right 3V 01/26/2023 [id number] TENDON SHEATH/LIGAMENT 1 Insurance Providers Payer Name Payer Address Payer Phone Subscriber Number Group Number Insured Name Patient Relationship to Insured Coverage Start Date Coverage End Date [employer] Remote [address] [place] [id number] Dev Siu Self - patient is the insured Medical (General) History Medical History History ICD Code Chicken pox Surgical History Surgery Date(Month/Year) appendectomy 1997
--- NOTE | 2024-11-13 12:03 | AM.OFFWIN_ITS ---
Intake Vital Signs 11/13/24 12:10 Weight 301 lb BP 124/80 Blood Pressure Location Lt brachial Position Sitting Pulse 75 Pulse Source Pulse Oximeter Pulse Oximetry (%) 96 Oxygen Delivery Method Room Air Intake Visit Reasons: EP RT arm pain worse Intake Note: Patient here for right arm pain that has worsened over the past couple of weeks. Patient Tobacco Use Status: Never used Tobacco Allergies No Known Allergies Allergy (Verified 11/13/24 12:17) Do you need a note to return to daycare/school/sports/work: Yes HPI HPI Comments History of Present Illness Details History of Present Illness - The patient is a 39-year-old male pres enting with persistent right wrist pain following a fall on October 19. - Initial assessment included x-ray imag ing that showed no fracture or dislo cation, and the scaphoid bone appeared normal. - Treatment involved using a wrist splin t and naproxen; however, symptoms have not improved and may have worsened. - The pain is described as sharp and ext ends up the arm, particularly affecting supination and pronation. 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 - Aggravating factors include wrist flex ion and certain wrist movements required at work, with no associated numbness or tingling or weakness reported. Physical Exam General: Cooperative, healthy appearing, comfortable, no acute distress and well developed Orientation: Patient oriented x3 Limitations: Limited wrist movement Head: Normal to inspection Ears: Hearing grossly normal bilaterally Nose: Normal External nose present Face and sinus: Normal facial exam Eyes: Appearance normal, both eyes and all related structures Neck: Normal visual inspection and Yes full ROM Respiratory: Normal respiratory effort and able to speak in complete sentences. Skin: No rashes or lesions noted Neuro: Patient oriented x3 Extremities: Right wrist pain ulnar> radial with limited range of motion, particularly in supination and pronation and flexion. Pain upon flexion and extension. slight ttp distal wrist ulnar side> radial side. No scaphoid tenderness. 5/5 sports medicine coordinator strength bilat. Full range of motion in fingers. Full ROM right elbow, no ttp right elbow. [facility] Medical History Head injury Surgical History History of appendectomy Family History Paternal Grandfather Heart disease Diabetes Social History Housing: Condominium Alcohol intake: current Alcohol intake frequency: a few times a week Patient Tobacco Use Status: Never used Tobacco e-Cigarette/Vaping Use: Never Used service: Yes Current occupational status: employed Current occupation: Cognitive needs: No Hearing needs: No Vision needs: Yes Review of Systems Const All systems reviewed & are unremarkable except as noted in HPI and below Physical Exam Vital Signs: Last Vital Signs Pulse 75 11/13/24 12:10 BP 124/80 11/13/24 12:10 Pulse Ox 96 11/13/24 12:10 Oxygen Delivery Method Room Air 11/13/24 12:10 Assessment & Plan Assessment & Plan (1) Right wrist pain: Code(s): M25.531 - Pain in right wrist Plan: The plan is to repeat x-ray imaging of the right wrist to reassess for any potential missed fractures or subtle injuries. An Orthopedic referral has been arranged to evaluate possible ligamentous injuries and evaluate the need for advanced imaging modalities such as an MRI. The patient will be contacted with x-ray findings and potential further steps. The patient should protect the wrist during activities and report any changes or worsening symptoms. Use wrist brace as able with work (unable to use at work), ice and Aleve. Patient was informed and verbally consented to the use of an ambient scribe for clinic note documentation during this visit. Orders: Orders XR wrist RT w scaphoid Today M25.531 - Pain in right wrist Referrals Orthopedics Referral M25.531 - Pain in right wrist Coding Level of Care Code Est Pt Level 4 (55213) Diagnoses Right wrist pain M25.531
[2024-11-13 12:10] VITALS: BP 124/80; PULSE 75; O2SAT 96
== END 2024-11-13 12:58 | disposition home or self-care (01) ==
PROVIDERS: PCP Nurse Practitioner Family; Visit Provider Physician Assistant
DX: M25.531 Pain in right wrist (principal)

== ENCOUNTER 2024-11-13 11:08 | Outpatient (REF) | payer OTHER, SELFPAY ==
--- NOTE | ~2024-11-13 | XR_ITS ---
EXAMINATION: XR WRIST, RIGHT CLINICAL INFORMATION: M25.531 - Pain in right wrist COMPARISON: 10/19/2024. TECHNIQUE: PA, lateral, oblique, and scaphoid views of the right wrist. FINDINGS: The bones and soft tissues are normal. No fracture. Alignment is anatomic with normal joint spaces. No erosions or abnormal soft tissue calcifications. XR/XR wrist RT w scaphoid IMPRESSION: Normal right wrist. Electronically signed by: Fito Crabtree MD 11/13/2024 02:00 PM EDT
== END 2024-11-13 11:09 | disposition home or self-care (01) ==
LOC: HO.HMGCX 11:08
PROVIDERS: PCP Nurse Practitioner Family; Visit Provider Physician Assistant
DX: M25.531 Pain in right wrist (principal)
CPT/HCPCS: 73110; 99212

== ENCOUNTER → 2024-11-13 13:04 | Outpatient (BNV) | payer OTHER, SELFPAY | PROVIDERS: PCP Nurse Practitioner Family; Visit Provider Radiology Diagnostic Radiology | DX: M25.531 Pain in right wrist (principal) | CPT/HCPCS: 73110 ==

== ENCOUNTER 2024-11-21 13:40 | Outpatient (REF) | payer OTHER, SELFPAY ==
--- NOTE | ~2024-11-21 | XR_ITS ---
EXAMINATION: XR WRIST, RIGHT CLINICAL INFORMATION: M79.641 - Pain in right hand COMPARISON: 11/13/2024, 10/19/2024. TECHNIQUE: PA, lateral, oblique, and scaphoid views of the right wrist. FINDINGS: The bones and soft tissues are normal. No fracture, or healing fracture. Alignment is anatomic with normal joint spaces. No erosions or abnormal soft tissue calcifications. XR/XR wrist RT w scaphoid IMPRESSION: Normal right wrist. Electronically signed by: Fito Crabtree MD 11/22/2024 09:32 AM EDT
--- OUTSIDE RECORDS SUMMARY | 2024-11-21 13:53 | XMS_ITS | Patient Health Record ---
Author Organization [facility] Rebekah moy [place] Address [address] [place] [address] Care Team Providers Care Forensic Pathologist Name Role Phone Khari Rosas Primary Care Provider Unav Donnell Martinez Unavailable [phone] Allergies No Known Allergies Reason For Referral [...] X ray : Foot, right 3V 01/26/2023 [id number] TENDON SHEATH/LIGAMENT 1 Insurance Providers Payer Name Payer Address Payer Phone Subscriber Number Group Number Insured Name Patient Relationship to Insured Coverage Start Date Coverage End Date [employer] Remote [address] [place] [id number] Dev Siu Self - patient is the insured Medical (General) History Medical History History ICD Code Chicken pox Surgical History Surgery Date(Month/Year) appendectomy 1997
== END 2024-11-21 13:41 | disposition home or self-care (01) ==
LOC: HO.HOSX 13:40
DX: M25.531 Pain in right wrist (principal); M79.641 Pain in right hand; M77.8 Other enthesopathies, not elsewhere classified
CPT/HCPCS: 73110; 99212

== ENCOUNTER 2024-11-21 13:55 | Outpatient (AMB) | payer OTHER, SELFPAY ==
--- NOTE | 2024-11-21 14:10 | A.OFFVIS_ITS ---
Vital Signs 11/21/24 14:15 Height 6 ft Weight 290 lb BMI 39.3 Handedness Right Intake Visit Reasons: New prob-Rt wrist pain Intake Note: Khari is a 39 year old right hand dominant male who presents today for a new problem visit with complaints of right wrist pain. Patient reports on 10/19/24 he had a fall. He states he was ambulating up stairs with something heavy when he had this fall. He is unsure exactly how he landed but he says he did his his right hand. Says he went to [facility] walk in for x-rays on the same day of injury. He was provided with a wrist brace which he says did not alleviate his symptoms. Generalized pain on the ulnar aspect of the right hand. Reports difficulty and pain with lifting, supination, pronation, flexion, extension, radial and ulnar deviation of the right wrist. Sensitivity with palpation of the volar and dorsal aspect of the right wrist. He feels a pulling sensation with movement of the wrist and states he wakes up in the morning at his worse and with severe stiffness. Allergies No Known Allergies Allergy (Verified 11/21/24 14:15) HPI HPI New prob-Rt wrist pain: Details: Khari is a 39 year old right hand dominant male who presents today for a new problem visit with complaints of right wrist pain. Patient reports on 10/19/24 he had a fall. He states he was ambulating up stairs with something heavy when he had this fall. He is unsure exactly how he landed but he says he did his his right hand. Says he went to [facility] walk in for x-rays on the same day of injury. He was provided with a wrist brace which he says did not alleviate his symptoms. Generalized pain on the ulnar aspect of the right hand. Reports difficulty and pain with lifting, supination, pronation, flexion, extension, radial and ulnar deviation of the right wrist. Sensitivity with palpation of the volar and dorsal aspect of the right wrist. He feels a pulling sensation with movement of the wrist and states he wakes up in the morning at his worse and with severe stiffness. [facility] Medical History Head injury Surgical History History of appendectomy Family History Paternal Grandfather Heart disease Diabetes Social History Housing: Condominium Alcohol intake: current Alcohol intake frequency: a few times a week Patient Tobacco Use Status: Never used Tobacco e-Cigarette/Vaping Use: Never Used service: Yes Current occupational status: employed Current occupation: Cognitive needs: No Hearing needs: No Vision needs: Yes Physical Exam Vital Signs: BMI result Body Mass Index 39.3 Assessment & Plan Assessment & Plan (1) Extensor carpi ulnaris tendinitis: Code(s): M77.8 - Other enthesopathies, not elsewhere classified Category: Medical Plan History of Present Illness The patient is a 39-year-old male presenting with right wrist pain. The onset of symptoms correlates with a fall on October 19 while climbing stairs, resulting in an awkward landing. Initial and subsequent X-rays post-injury were negative, yet the patient continues to experience unilateral wrist pain and functional limitations, particularly when holding weight or performing certain movements. The patient's maximal pain occurs in the morning and persists to a lesser extent during the day, with specific maneuvers causing significant discomfort. Conservative measures, including wrist splinting, provided minimal relief. The condition is suggestive of ECU tendonitis with partial tearing, a diagnosis agustin pported by the presence of sharp pain during specific movements without complete dysfunction. Review of Systems - Musculoskeletal: Reports inability to hold weight, pulling sensations, and morning pain; denies any other joint pains or swelling. - Dermatologic: Reports bruising over the right wrist area. - Neurological: Denies any weakness or tingling in the affected limb. Systems reviewed and are negative except as per HPI and below Physical Exam - Musculoskeletal- Right wrist examination reveals tenderness over the ulnar styloid, pain upon resisted extension and flexion, no visible deformities noted. No Bruising was observed and palpation resulted in discomfort, particularly during wrist extension maneuvers. Results - Tests: Initial and subsequent X-rays of the right wrist post-injury were negative for fractures or dislocations. Procedure Plan The established diagnosis is extensor carpi ulnaris tendonitis. Management includes utilizing a more accommodating brace and initiating occupational therapy to work on range of motion and strengthening. Analgesia with Tylenol and ibuprofen is recommended for symptom relief. Topical agents might also be useful. A corticosteroid injection may be considered if OT and the brace are ineffective after 4 to 6 weeks. Patient acknowledgment and consent for this management strategy were obtained. No immediate follow-up is planned unless there is no improvement or condition worsens. Patient was informed and verbally consented to the use of an ambient scribe for clinic note documentation during this visit. Discussion Notes During the consultation, I explained the diagnosis of ECU tendonitis and the proposed management plan, which includes the use of a functional brace and a referral to occupational therapy for strengthening and range of motion exercises. We discussed pain management strategies, emphasizing that both oral and topical anti-inflammatory medications can help alleviate symptoms. I informed the patient of the low risk associated with the brace and OT. I also detailed the potential benefit of steroid injections should conservative measures fail, acknowledging the decision to delay this more invasive option g iven current guidelines. The patient expressed comfort with the planned approach and agreed to proceed. Follow-up will be based on the progress over the next 4 to 6 weeks, with specific instructions to contact me if symptoms do not improve by then. Patient Instructions - Wear the Velcro wrist brace as instructed to limit wrist movement. - Use Tylenol or ibuprofen for pain relief as needed. - Apply topical gels, such as Voltaren, to the wrist for additional symptom control. - Begin occupational therapy to improve wrist function and strength. - Report any worsening of symptoms or if no improvement is seen after 4 to 6 weeks. - Maintain scheduled OT appointments and contact the clinic if additional guidance is needed. Orders: Orders XR wrist RT w scaphoid 11/21/24 M79.641 - Pain in right hand OT Evaluation and Treatment 11/21/24 M77.8 - Other enthesopathies, not elsewhere classified Coding Level of Care Code New Pt Level 3 (05193) Diagnoses Extensor carpi ulnaris tendinitis M77.8
[2024-11-21 14:15] VITALS: BMI 39.3
== END 2024-11-21 14:59 | disposition home or self-care (01) ==
LOC: HO.HOS 13:56
PROVIDERS: PCP Nurse Practitioner Family
DX: M77.8 Other enthesopathies, not elsewhere classified (principal)
CPT/HCPCS: 99213

== ENCOUNTER → 2024-11-21 14:08 | Outpatient (BNV) | payer OTHER, SELFPAY | PROVIDERS: Visit Provider Radiology Diagnostic Radiology | DX: M79.641 Pain in right hand (principal) | CPT/HCPCS: 73110 ==

== ENCOUNTER 2024-11-22 09:00 | Outpatient (RCR) | payer OTHER, SELFPAY ==
--- NOTE | 2024-10-17 14:46 | MHC.PT.EP ---
[facility] [place] Office [place] Office [place] Office [address] Giovanny Perez [address] [phone] F: [phone] F: [phone] F: [phone] F: [phone] Physical Therapy Plan of Care Date of Evaluation: 10/17/24 Date of Surgery: n/a Diagnosis: strain of gastroc tendon R lower leg Assessment: Patient is a 39 year old male presenting to PT with complaints of pain in his R gastroc. Pt reports onset of pain began 2 months ago due to carrying something down stairs and feeling a pop. He presents today with impairments in pain, tenderness to palpation, balance, tissue density. Pt's current occupation is , with baseline physical activities including ambulating, work, ADLs, running. Pt expresses custodial goal of reducing pain, and is motivated to work towards this in PT. Clinical presentation today is most consistent with signs and sx associated with R gastroc strain and pt will benefit from skilled PT 2 week x 4 weeks to address the following problems and impairments noted upon evaluation: pain, tenderness to palpation, balance, tissue density. These problems limit the patient with the following functional activities: ambulating, work, ADLs, running. The prescribed treatment plan of care is medically necessary. Co-morbidities of none were identified and taken into considerations of plan of care. Pt was educated on HEP, role of PT, prognosis, POC. Frequency and Duration: The patient will be seen 2 x week x 4 weeks Short Term Goals: Pt will demonstrate less pain with palpation and tissue density in 2 weeks. Pt will demonstrate ability to perform DL heel raises without pain in 2 weeks. Pt will demonstrate ability to perform SLS with min to no sway or pain in 2 weeks. Colorist Photography Goals: Pt will demonstrate improved LEFI score by 9 points in 4 weeks for improved functional mobility. Pt will demonstrate ability to negotiate stairs with normal mechanics and no pain in 4 weeks for return to PLOF. Pt will demonstrate ability to work at his PLOF without limitations in 4 weeks for return to PLOF. Treatment Plan: Modalities to reduce pain, spasms and effusion. Manual therapy to restore motion and function. Therapeutic exercise to improve strength and flexibility. Neuromuscular re-education for posture and balance. Therapeutic activities to return to functional activities of daily living. Electronically signed by: Zoe Browne, PT, DPT, ATC Please sign and return to therapist. Thank you for your referral.
--- NOTE | 2024-11-22 11:11 | MHC.PT.DC ---
[facility] [place] Office [place] Office [place] Office [address] Giovanny Perez [address] [phone] F: [phone] F: [phone] F: [phone] F: [phone] Physical Therapy Discharge Report Diagnosis: strain of gastroc tendon R lower leg Date of Surgery: n/a Date of Evaluation: 10/17/24 Date of Discharge: 11/22/24 Treatments to Date: 6 Cancellations to Date: 0 No Shows to Date: 0 Discharge Status: Achieved Goals Improved Function Independent with HEP Discharge Summary: 11/22/2024: He feels better overall. Able to return to some running activities without issues. He still has some soreness with palpation in the gastroc. Feels ready to transition to HEP at home which I agree also makes sense at this point. He also has an order for OT and will be booking this soon. Pt to be d/c and is in agreement with this. Electronically signed by: Zoe Browne, PT, DPT, ATC Please sign and return to therapist. Thank you for your referral.
== END 2024-11-22 11:11 | disposition home or self-care (01) ==
LOC: HO.PTCHIC 09:00
PROVIDERS: PCP Nurse Practitioner Family; Visit Provider Physician Assistant
DX: S86.111D Strain of other muscle(s) and tendon(s) of posterior muscle group at lower leg level, right leg, subsequent encounter (principal)
CPT/HCPCS: 97110; 97112; 97140; 97161

== ENCOUNTER 2024-12-05 15:32 | Outpatient (AMB) | payer OTHER, SELFPAY ==
--- NOTE | 2024-12-05 15:32 | MHC.OFFVIS ---
Intake Visit Reasons: testosterone follow up Intake Note: patient Telehealth today for initial visit for a vasectomy consult Urology Medication:none Blood Thinner:none Antibiotic Allergies:none Allergies No Known Allergies Allergy (Verified 12/05/24 17:39) Medication List - Last Reconciled 12/05/24 by KIARA Oconnell multivitamin 1 tab PO DAILY tadalafil (Cialis) 5 mg PO DAILY 90 days HPI Comments Details: Chano is a 39-year-old male patient of Dr. Montiel. He has a past medical history of a head injury. He is being followed up on today via video telehealth for his borderline hypogonadism. Of note, patient was seen approximately [address] Prosper Simon at which time he he underwent vasectomy evaluation. He does have a vasectomy scheduled in the operating room next week on 12-11. However, he had been reporting generalized fatigue and was enquiring further assessment evaluation of his testosterone levels. These labs were ordered and obtained. These results were reviewed and communicated with the patient today. Testosterone: 10/12 332 Free testosterone: 10/12 60.1 We discussed testosterone replacement verses testosterone hinduism. We discussed risks and benefits of these interventions. He otherwise denies any bothersome urinary issues. He reports be happy with current voiding parameters. All questions were answered. [facility] Medical History Head injury Surgical History History of appendectomy Family History Paternal Grandfather Heart disease Diabetes Social History Housing: Condominium Alcohol intake: current Alcohol intake frequency: a few times a week Patient Tobacco Use Status: Never used Tobacco e-Cigarette/Vaping Use: Never Used service: Yes Current occupational status: employed Current occupation: Cognitive needs: No Hearing needs: No Vision needs: Yes Review of Systems Const All systems reviewed & are unremarkable except as noted in HPI and below Physical Exam Const General: cooperative, healthy appearing, comfortable, no acute distress, well developed, alert and awake Resp Effort & Inspection: normal respiratory effort and able to speak in complete sentences Psych Appearance: grossly normal and well kempt Mental Status: mental status grossly normal Speech and movement: Clear speech present Affect: normal affect Attitude: cooperative Thought process: Normal thought process present Thought content: Normal thought content present Insight: Fair insight present (Psych) Judgement: Fair judgement present (Psych) Telehealth Telehealth Telehealth Platform: Medication Review Location of provider rendering services: practice address Location of patient: address on file Patient Identification confirmed using: Name, : Yes Telehealth method: video Patient verbally consented to treatment: Yes Patient verbally consented to billing insurance company: Yes Patient informed of any privacy concerns related to visit: Yes Minutes spent on Phone/Video with Pt.: 20 Assessment & Plan Assessment & Plan (1) Fatigue: Code(s): R53.83 - Other fatigue Category: Medical Plan Recent testosterone lab values were reviewed; as noted above. We discussed testosterone replacement verses testosterone hinduism; risks and benefits of these interventions were discussed. All questions were answered. Start Cialis 5 mg daily as discussed and prescribed. Will reassess testosterone in 3 months. Continue to follow-up with Dr. Cunningham as planned; or sooner with any issues, concerns, and or questions. Orders: Orders Lutenizing Hormone 3 Months R53.83 - Other fatigue Testosterone, Free/Total 3 Months R53.83 - Other fatigue Medications: New tadalafil (Cialis) [id number] [facility] [id number] Member [id number] 5 mg PO DAILY 90 tabs 1RF 90 days Patient Instructions: The patient had an opportunity to ask questions regarding the treatment plan. All questions were answered. Physical exam, labs, and imaging were discussed and reviewed in detail. As well as risks, benefits, and discussion of treatment choices. No major barriers to understanding were identified. The patient expressed understanding and agreement with the above treatment plan. The patient was made aware they should contact our office by phone for worsening of their current condition, the appearance of new symptoms, or with any questions or concerns. Compliance is encouraged with any medications and follow up testing that is ordered. It is a privilege to be allowed the opportunity to participate in? your urological care.? Again, if you have any questions or concerns If you have any questions or concerns please do not hesitate to contact me. The office is [phone]. This note is constructed using voice recognition software. While every effort has been made to ensure accuracy roll icer machine errors may have been included. Yours sincerely, DEVONTE Oconnell-ANDI Coding Level of Care Code Tele Est Pt Level 4 (01887) Diagnoses Fatigue R53.83
--- OUTSIDE RECORDS SUMMARY | 2024-12-05 17:45 | XMS_ITS | Patient Health Record ---
Author Organization [facility] Reebkah moy [place] Address [address] [place] [address] Care Team Providers Care Taping Supervisor Name Role Phone Khari Rosas Primary Care Provider Unav Donnell Martinez Unavailable [phone] Allergies No Known Allergies Reason For Referral [...] X ray : Foot, right 3V 01/26/2023 [id number] TENDON SHEATH/LIGAMENT 1 Insurance Providers Payer Name Payer Address Payer Phone Subscriber Number Group Number Insured Name Patient Relationship to Insured Coverage Start Date Coverage End Date Prime Remote [address] [place] [id number] Dev Siu Self - patient is the insured Medical (General) History Medical History History ICD Code Chicken pox Surgical History Surgery Date(Month/Year) appendectomy 1997
== END 2024-12-05 16:55 | disposition home or self-care (01) ==
LOC: HO.HUSH 15:32
PROVIDERS: PCP Nurse Practitioner Family; Visit Provider Nurse Practitioner Family
DX: R53.83 Other fatigue (principal)
CPT/HCPCS: 99214

== ENCOUNTER → 2024-12-05 15:32 | Outpatient (BNVA) | payer OTHER, SELFPAY | PROVIDERS: PCP Nurse Practitioner Family; Visit Provider Nurse Practitioner Family | DX: Z13.89 Encounter for screening for other disorder (principal) ==

== ENCOUNTER 2024-12-11 06:06 | Day surgery (SDC) | payer OTHER, SELFPAY ==
--- OUTSIDE RECORDS SUMMARY | 2024-10-16 16:02 | XMS_ITS | Clinical Summary ---
Author Organization [facility] ity Address [address] [place] [address] Care Team Providers Care Roll Mechanic Name Role Phone Unavailable Primary Care Provider [...]
--- OUTSIDE RECORDS SUMMARY | 2024-10-16 16:02 | XMS_ITS | Patient Health Record ---
Author Organization [facility] Rebekah moy [place] Address [address] [place] [address] Care Team Providers Care Top Closer Name Role Phone Khari Rosas Primary Care Provider Unav Donnell Martinez Unavailable [phone] Allergies No Known Allergies Reason For Referral [...] X ray : Foot, right 3V 01/26/2023 [id number] TENDON SHEATH/LIGAMENT 1 Insurance Providers Payer Name Payer Address Payer Phone Subscriber Number Group Number Insured Name Patient Relationship to Insured Coverage Start Date Coverage End Date [employer] [address] [place] [id number] Dev Siu Self - patient is the insured Medical (General) History Medical History History ICD Code Chicken pox Surgical History Surgery Date(Month/Year) appendectomy 1997
--- OUTSIDE RECORDS SUMMARY | 2024-10-16 16:03 | XMS_ITS | Continuity of Care Document ---
Author Name [facility] Organization [facility] Care Team Providers Care Copy Writer Name Role Phone [facility] Unavailable Unavailable Problems Combined list of problems [...] Known Allergies Drug allergy (disorder) active 07/11/2012 [facility] [place] [facility] [address] Immunizations Combined list of available immunizations from the Department of Defense and Veterans Affairs facilities. Immunization Series Date Given Administered By Site Reaction Lot Number CVX Code Drug Drop Wire Aligner Status Comments Source influenza, injectable, quadrivalent- pf 2022 150 GlaxoSmithKli ne complet ed influenza , injectabl e, quadrival ent-pf 05/25/23 Given Ambulat ory Pharmac y tetanus, diphtheria, acellular pertu is 2022 [id number] sanofi pasteur complet ed tetanus, diphtheri a, acellular pertussis 07/15/22 Given Ambulat ory Pharmac y Influenza, inj, MDCK, quadrivalent- pf 2021 171 Seqirus complet ed Influenza , inj, MDCK, quadrival ent-pf 03/16/22 Given Ambulat ory Pharmac y COVID Vaccine Pfizer 2020 [id number] PFIZER complet ed COVID Vaccine Pfizer 05/24/21 Given Ambulat ory Pharmac y COVID Vaccine Pfizer 2020 [id number] PFIZER complet ed COVID Vaccine Pfizer 05/24/21 Given Ambulat ory Pharmac y influenza, seasonal, injectable 2020 [id number] 141 Seqirus complet ed influenza , seasonal, injectabl e 03/26/21 Given Ambulat ory Pharmac y influenza, seasonal, injectable 2020 [id number] 141 Seqirus complet ed influenza , seasonal, injectabl e 03/26/21 Given Ambulat ory Pharmac y Influenza, inj, MDCK, quadrivalent- pf 2020 171 complet ed Influenza , inj, MDCK, quadrival ent-pf 03/26/21 Given Ambulat ory Pharmac y Influenza, injectable, MDCK, preservative free, quadrivalent 2020 [id number], () Not Given Influenza , injectabl e, MDCK, preservat rodrick free, quadrival ent DoD COVID Vaccine Moderna 2020 [id number] complet ed COVID Vaccine Moderna 07/25/20 Given Ambulat ory Pharmac y COVID Vaccine Moderna 2020 [id number] complet ed COVID Vaccine Moderna 07/25/20 Given Ambulat ory Pharmac y COVID Vaccine Moderna 2020 [id number] 207 complet ed COVID Vaccine Moderna 06/26/20 Given Ambulat ory Pharmac y COVID Vaccine Moderna 2020 [id number] 207 complet ed COVID Vaccine Moderna 06/26/20 [...] quadrival ent DoD influenza, seasonal, injectable-pf 2018 [id number] 140 Seqirus complet ed influenza , seasonal, injectabl e-pf 04/12/19 Given Ambulat ory Pharmac y influenza, injectable, quadrivalent- pf 2018 150 complet ed influenza , injectabl e, quadrival ent-pf 04/12/19 Given Ambulat ory Pharmac y influenza, seasonal, injectable-pf 2018 [id number] 140 Seqirus complet ed influenza , seasonal, injectabl e-pf 04/12/19 Given Ambulat ory Pharmac y influenza, injectable, quadrivalent, preservative free 2018 [id number], () Not Given influenza , injectabl e, quadrival ent, preservat rodrick free DoD anthrax vaccine 2018 [id number] Emergent Biosolutions complet ed anthrax vaccine 10/22/18 Given Ambulat ory Pharmac y anthrax vaccine 2018 [id number] Emergent [employer]olutions complet ed anthrax vaccine 10/22/18 Given Ambulat ory Pharmac y typhoid Vi capsular polysaccharid e vac 2018 [id number] 101 sanofi pasteur complet ed typhoid Vi capsular polysacch aride vac 09/07/18 Given Ambulat ory Pharmac y anthrax vaccine 2018 [id number] Emergent [employer] complet ed anthrax vaccine 09/07/18 Given Ambulat ory Pharmac y poliovirus vaccine, inactivated 2018 [id number] 10 sanofi pasteur complet ed polioviru s vaccine, inactivat ed 09/07/18 Given Ambulat ory Pharmac y typhoid Vi capsular polysaccharid e vac 2018 [id number] 101 sanofi pasteur complet ed typhoid Vi capsular polysacch aride vac 09/07/18 Given Ambulat ory Pharmac y anthrax vaccine 2018 [id number] 24 Emergent [employer] complet ed anthrax vaccine 09/07/18 Given Ambulat ory Pharmac y poliovirus vaccine, inactivated 2018 [id number] 10 sanofi pasteur complet ed polioviru s vaccine, inactivat ed 09/07/18 Given Ambulat ory Pharmac y influenza, injectable, quadrivalent- pf 2017 [id number] 150 Seqirus complet ed influenza , injectabl e, quadrival ent-pf 04/22/18 Given Ambulat ory Pharmac y Influenza, injectable, quadrivalent, preservative free 7 2017 [id number] 150 Seqirus (SEQ) comple t ed Influenza , injectabl e, quadrival ent, preservat rodrick free DoD influenza, injectable, quadrivalent 2016 [id number] 158 complet ed influenza , injectabl e, quadrival ent 04/06/17 Given Ambulat ory Pharmac y influenza, injectable, quadrivalent, contains preservative 1 2016 [id number] 158 Transcribed (TRS) complet ed influenza , injectabl e, quadrival ent, contains preservat rodrick DoD measles/mumps /rubella virus vaccine 2016 [id number] 03 Merck & Company Inc complet ed measles/m umps/rube lla virus vaccine 11/07/16 Given Ambulat ory Pharmac y measles, mumps and rubella virus vaccine 2 2016 [id number] 03 Merck (MSD) complet ed measles, mumps and rubella virus vaccine DoD measles/mumps /rubella virus vaccine 2016 [id number] 03 Merck & Company Inc complet ed measles/m umps/rube lla virus vaccine 08/21/16 Given Ambulat ory Pharmac y measles, mumps and rubella virus vaccine 1 2016 [id number] 03 Merck (MSD) complet ed measles, mumps and rubella virus vaccine DoD influenza, seasonal, injectable-pf 2015 [id number] 140 Seqirus complet ed influenza , seasonal, injectabl e-pf 04/03/16 Given Ambulat ory Pharmac y Influenza, seasonal, injectable, preservative free 0 2015 [id number] 140 Seqirus (SEQ) comple t ed Influenza , seasonal, injectabl e, preservat rodrick free DoD influenza, seasonal, injectable-pf 2014 [id number] 140 CSL Behring complet ed influenza , seasonal, injectabl e-pf 03/23/15 Given Ambulat ory Pharmac y Influenza, seasonal, injectable, preservative free 4 2014 [id number] 140 CSL ERA [employer] (CSL) complet ed Influenza , seasonal, injectabl e, preservat rodrick free DoD Influenza, injectable, MDCK-pf 2013 [id number] 153 Novartis Pharmaceutica ls complet ed Influenza , injectabl e, MDCK-pf 03/24/14 Given Ambulat ory Pharmac y Influenza, injectable, Madin [place] Canine Kidney, preservative free 0 2013 [id number] 153 Novartis Pharmaceutica l Prashant. (NOV) complet ed Influenza , injectabl e, Madin Joan Canine Kidney, preservat rodrick free DoD hepatitis A adult vaccine 2013 [id number] 52 GlaxoSmithKli ne complet ed hepatitis A adult vaccine 10/21/13 Given Ambulat ory Pharmac y hepatitis A vaccine, adult dosage 2 2013 [id number] [facility] hepatitis A [...] adult dosage 1 2012 [id number] 52 [employer] (SKB) complet ed hepatitis A vaccine, adult dosage DoD tuberculin purified protein derivative 2012 [id number] 96 [facility] complet ed tuberculi n purified protein derivativ e 06/30/12 Given Ambulat ory Pharmac y influenza, seasonal, injectable-pf 2012 [id number] 140 CSL Behring complet ed influenza , seasonal, injectabl e-pf 06/30/12 Given Ambulat ory Pharmac y meningococcal A,C,Y,W-135 (MCV4P) 2012 [id number] 114 sanofi pasteur complet ed meningoco ccal A,C,Y,W-1 35 (MCV4P) 06/30/12 Given Ambulat ory Pharmac y adenovirus vaccine, live 2012 [id number] 5 143 Teva Pharmaceutica ls complet ed adenoviru s vaccine, live 06/30/12 Given Ambulat ory Pharmac y poliovirus vaccine, inactivated 2012 [id number] 10 sanofi pasteur complet ed polioviru s vaccine, inactivat ed 06/30/12 Given Ambulat ory Pharmac y tetanus, diphtheria, acellular pertu is 2012 [id number] [facility] ed tetanus, diphtheri a, acellular pertussis 06/30/12 Given Ambulat ory Pharmac y tuberculin purified protein derivative 2012 [id number] 96 [facility] complet ed tuberculi n purified protein derivativ e 06/30/12 Given Ambulat ory Pharmac y poliovirus vaccine, inactivated 1 2012 [id number] 10 Sanofi Pasteur ([facility]) complet ed polioviru s vaccine, inactivat ed DoD meningococcal polysaccharid e (groups A, C, Y and W-135) diphtheria toxoid conjugate vaccine (MCV4P) 1 2012 [id number] 114 Sanofi Pasteur ([facility]) complet ed meningoco ccal polysacch aride (groups A, C, Y and W-135) diphtheri a toxoid conjugate vaccine (MCV4P) DoD tetanus toxoid, reduced diphtheria toxoid, and acellular pertu is vaccine, adsorbed 1 2012 [id number] 115 [employer] (SKB) complet ed tetanus toxoid, reduced diphtheri a toxoid, and acellular pertussis vaccine, adsorbed DoD Influenza, seasonal, injectable, preservative free 1 2012 [id number] 140 [employer] (CSL) complet ed Influenza , seasonal, injectabl e, preservat rodrick free DoD Adenovirus, type 4 and type 7, live, oral 1 2012 [id number] 5 143 [facility] (BRR) complet ed Adenoviru s, type 4 [...] Prevention' s HIV diagnostic algorithm. Refer to [facility] Lab Guide for additional information : [email or web address] x Testing performed [...] ADM Date DC Date Status Disposition [place] [address](Opt ometry Clinic BMT [facility]) OUTPATIENT [id number] CHAPO WORKMAN 07/06 Released w/o Limitations [facility] [place] [address](O ptometr y Clinic BMT [facility]) [place] [address](MAS Lewis) OUTPATIENT [id number] Notes Entered by: PHANI TINSLEY 11 Jul 2012 0735 ------- ------- ------- ------- -- Cold/Pa in pack KYLEE_FABIAN SOLOMON S 07/11 Released w/o Limitations [facility] [place] [address](M Lewis) [place] [address](MAS Lewis) OUTPATIENT [id number] Notes Entered by: FABIAN MCLEAN 21 Jul 2012 0900 ------- ------- ------- ------- -- minor cold sx/ minor pain DAYDAY BRAGA 07/21 Released w/o Limitations [facility] [place] [address](M Lewis) [place] [address](MAS Lewis) OUTPATIENT [id number] Notes Entered by: PHANI TINSLEY 02 Aug 2012 0729 ------- ------- ------- ------- -- Cold/Pa in pack LEWIS AVILA 08/02 Released w/o Limitations [facility] [place] [address](M Lewis) [place] [address](MAS Lewis) OUTPATIENT [id number] Notes Entered by: DAYDAY BRAGA 17 Aug 2012 0757 ------- ------- ------- ------- -- Cold Pack DAYDAY BRAGA 08/17 Released w/o Limitations [facility] [place] [address](M Lewis) Theater Facility OUTPATIENT [id number] 4 Theater Provider 03/22 Released w/o Limitations [facility] 8344R-439 AMDS Between Visit [id number] 09/06 Discharge Disposition: Home or Self Care 8344R-4 39 AMDS 8344R-439 AMDS Between Visit [id number] 09/22 Discharge Disposition: Home or Self Care 8344R-4 39 AMDS 8344R-439 AMDS Between Visit [id number] 10/01 Discharge Disposition: Home or Self Care 8344R-4 39 AMDS 8344R-439 AMDS Between Visit [id number] 10/08 Discharge Disposition: Home or Self Care 8344R-4 39 AMDS 8344R-439 AMDS Preclinic [id number] 10/19 8344R-4 39 AMDS Procedures Combined list of: 1) Procedures from Department of Veterans Affairs facilities [facility], not all VA non-surgical procedures are included; 2) All procedures from the Department of Defense facilities. Procedure Procedure Type Code Date Perfomer Comments Sour e Screening Test Of Visual Acuity, Quantitative, Bilateral Screening Test Of Visual Acuity, Quantitative, Bilateral 86991 07/06/2012 TOSHIA WHALEN [employer] Fitting Monofocals (Not For Aphakia) [employer] Fitting Monofocals (Not For Aphakia) 81732 07/06/2012 TOSHIA WHALEN. [facility] No data available for this section Ambulatory Pharmacy Social History Combined list of available smoking, tobacco, and other social history from Department of Defense and Veterans Affairs facilities. Social History Type Response Date Comment Sour e This section is an empty social [...] Date: 10/19/2024 09:30:00 AM Scheduled Provider: Location: [address] [place] [address] Appointment Type: NG/R FTR 10/16/2024 Ambulatory Pharmacy Functional Status Combined list of recent functional and cognitive assessments recorded at Department of Defense and Veterans Affairs (VA).VA Functional [place] Measurement (FIM) Scale: 1 = Total Assistance (Subject = 0% +), 2 = Maximal Assistance (Subject = 25% +), 3 = Moderate Assistance (Subject = 50% +), 4 = Minimal Assistance (Subject = 75% +), 5 = Supervision, 6 = Modified [place] (Device), 7 = Complete [place] (Timely, Safely). Assessment Date/Time Source Assessment Type Assessment Skill Assessment Score Assessment Details No data available for this section
[2024-12-07 13:31] VITALS: BMI 40.0
--- NOTE | 2024-12-10 11:53 | HO.ANESPROP2 ---
HPI - Anesthesia Eval Consult details Narrative: 39yo M for Vasectomy PMFSH Active Problems Active Problems: All Active Problems Fatigue (Acute) Extensor carpi ulnaris tendinitis (Acute) Fall (on) (from) other stairs and steps, initial encounter (Acute) Right wrist pain (Acute) Encounter for vasectomy counseling (Acute) Anxiety about health (Acute) Post concussive syndrome (Acute) Strain of gastrocnemius tendon of right lower extremity (Acute) Achilles tendon injury (Acute) Head injury (Acute) Concussion (Acute) Admission for vasectomy (Acute) Patellofemoral arthralgia of both knees (Acute) Bilateral knee pain (Acute) Rash (Acute) Foot pain, bilateral (Acute) Elevated bilirubin (Acute) Plantar warts (Acute) Dyslipidemia (Acute) Obesity (Acute) Physical exam (Acute) Past Medical History Medical History Head injury Family History Family History Paternal Grandfather Heart disease Diabetes Surgical History Surgical History History of appendectomy Social History Social History Housing: Condominium Alcohol intake: current Alcohol intake frequency: a few times a week Patient Tobacco Use Status: Never used Tobacco e-Cigarette/Vaping Use: Never Used service: Yes Current occupational status: employed Current occupation: Cognitive needs: No Hearing needs: No Vision needs: Yes Meds Allergies Allergy/AdvReac Type Severity Reaction Status Date / Time No Known Allergies Allergy Verified 12/11/24 06:10 Home Medications ?Medication ?Instructions ?Recorded ?Confirmed ?Last Taken ?Type multivitamin 1 tab PO DAILY 10/27/21 12/11/24 Unknown History Exam Height,Weight and Vital Signs: Height 6 ft Weight 133.81 kg Assessment and Plan Assessment Anesthesia Assessment: Chart Reviewed
[2024-12-11] VITALS (8 sets, daily range): BP systolic 115–135; BP diastolic 56–80; PULSE 63–73; RESP 15–20; TEMP 36.1–36.5; O2SAT 95–100; BMI 41.3
[2024-12-11] MEDS: Lactated Ringers 1,000 ML 100 ML IVCONT (06:33)
--- NOTE | 2024-12-11 07:16 | W.PM.OPN ---
Operative Note Operative Note Date of Service: 12/11/24 Narrative: Preoperative diagnosis: Anxiety regarding unplanned Postoperative diagnosis: Anxiety regarding unplanned Procedure: Bilateral vasectomy Surgeon: Dr. Ella Cunningham Anesthesia: General Details of procedure:? The patient was brought into the operating room placed on the OR table in supine position.? 2 g of Ancef IV.? General anesthesia was administered.? The patient was prepped and draped in the usual sterile fashion. ? Time-out was done per protocol.? Both vasa were palpated through the skin using a 3 finger technique and at the penoscrotal junction. Starting on the left, the vasa was elevated using a 3 finger grasping technique. Using the 15 blade knife an incision was made over the vas followed by a sharp spreading instrument the fascia was spread longitudinally in line with the vasa. The vasa was elevated from the scrotum using a ring clamp. Sharp and blunt dissection was used divide the vasal sheath and to strip the vasal sheath from the vasa. The vasal sheath was dissected from the vas in a proximal and distal fashion. This allowed the blood vessels of the vasa to retract from the vasa. The vasa was grasped with a forcep clamp on both sides and elevated from the incision. The vas was clamped on either side and a segment sent for path. The needle tip cautery was used to cauterize the proximal and caudal end of the vas. 3.0 vicryl was used to apply a suture tie to the vasa. The ends of the vasa were allowed to retract and the skin was closed with 4.0 chromic. On the right side in similar fashion, the vasa was elevated using a 3 finger grasping technique. Using the 15 blade knife an incision was made over the vas followed by a sharp spreading instrument the fascia was spread longitudinally in line with the vasa. The vasa was elevated from the scrotum using a ring clamp. Sharp and blunt dissection was used divide the vasal sheath and to strip the vasal sheath from the vasa. The vasal sheath was dissected from the vas in a proximal and distal fashion. This allowed the blood vessels of the vasa to retract from the vasa. The vasa was grasped with a forcep clamp on both sides and elevated from the incision. The vas was clamped on either side and a segment sent for path. The proximall end of the vasa retracted and using 4 -0 chromic, the fascia was used to over lay and bury the proximal end of the vasa. The needle tip cautery was used to cauterize the distal end of the vas. 3.0 vicryl was used to apply a suture tie to the vasa. The end of the vasa was then allowed to retract and the skin was closed with 4.0 chromic. Local using 1% lidocaine plain mixed with 0.5% Marcaine was infiltrated into the skin in the areas of the incision. Bacitracin ointment and gauze was applied. The patient tolerated the procedure well. He was brought out of anesthesia. He understands the need to continue to use control methods. A semen sample should be brought for inspection under the microscope in 12 weeks. Drains: none Complications: none
--- NOTE | 2024-12-11 07:16 | MHC.SHP ---
Pre-Procedural Eval Section A - 24 Hr Update-Section A only Date of Service: 12/11/24 The patient is an INPATIENT: No The patient has been examined within 24 hours of the surgical procedure. The History & Physical has been completed within 30 days and I have reviewed it.: Yes Section B - Complete if H&P > 30 days Chief Complaint: Encounter for sterilization Allergies: Allergies Allergy/AdvReac Type Severity Reaction Status Date / Time No Known Allergies Allergy Verified 12/11/24 06:10 Plan Diagnosis/Plan: Unchanged I have reviewed the history and physical and performed a pertinent physical examination on my patient. No changes have occurred unless specified. Bilateral Vasectomy risks discussed including but not limited to bleeding, hematoma, procedure failure which is rare, sperm granuloma which may cause mild pain, and congestion which may cause sense of pressure and generally resolves after several weeks. Also discussed is the reported post vasectomy pain syndrome with chronic testicular pain which is uncommon <5% The patient was advised that it is necessary to use other types of control methods for > 12 weeks and until we send semen for analysis to make sure there is no more sperm in the semen. Time Spent With Patient Time: Total time managing care of this patient today ____ minutes.
[2024-12-11] MEDS: ceFAZolin Sodium/Dextrose,Iso 2 GM/50 ML PIGGYBACK IV (07:40)
--- NOTE | 2024-12-11 07:55 | HO.ANESPROP2 ---
[facility] Active Problems Active Problems: All Active Problems (Updated 12/05/24 @ 17:53 by Edwige Stephen [facility]) Fatigue (Acute) Extensor carpi ulnaris tendinitis (Acute) Fall (on) (from) other stairs and steps, initial encounter (Acute) Right wrist pain (Acute) Encounter for vasectomy counseling (Acute) Anxiety about health (Acute) Post concussive syndrome (Acute) Strain of gastrocnemius tendon of right lower extremity (Acute) Achilles tendon injury (Acute) Head injury (Acute) Concussion (Acute) Admission for vasectomy (Acute) Patellofemoral arthralgia of both knees (Acute) Bilateral knee pain (Acute) Rash (Acute) Foot pain, bilateral (Acute) Elevated bilirubin (Acute) Plantar warts (Acute) Dyslipidemia (Acute) Obesity (Acute) Physical exam (Acute) Past Medical History Medical History Head injury Functional capacity: independent ambulation Family History Family History Paternal Grandfather Heart disease Diabetes Family history of problems with anesthesia: No Surgical History Surgical History History of appendectomy History of Problems with Anesthesia: No Social History [facility] Alcohol intake: current Alcohol intake frequency: a few times a week Patient Tobacco Use Status: Never used Tobacco e-Cigarette/Vaping Use: Never Used Use of substances other than those prescribed or required for medical reasons: No Are you DNR?: No Advance Directives: No Advance Directives Information Provided: Yes service: Yes Current occupational status: employed Current occupation: Cognitive needs: No Hearing needs: No Vision needs: Yes Meds Allergies Allergy/AdvReac Type Severity Reaction Status Date / Time No Known Allergies Allergy Verified 12/11/24 06:10 Active Medications: Current Medications Lactated Ringer's (Lr) 1,000 mls @ 100 mls/hr IVCONT .Q10H SHIRA Last Admin: 12/11/24 06:33 Dose: 100 mls/hr Home Medications ?Medication ?Instructions ?Recorded ?Confirmed ?Last Taken ?Type multivitamin 1 tab PO DAILY 10/27/21 12/11/24 Unknown History Exam Height,Weight and Vital Signs: Height 6 ft Weight 138.3 kg Last Vital Signs Temp 97.7 F 12/11/24 06:16 Pulse 63 12/11/24 06:16 Resp 15 12/11/24 06:16 BP 115/56 L 12/11/24 06:16 Pulse Ox 98 12/11/24 06:16 O2 Del Method Room Air 12/11/24 06:16 Airway Mallampati Class: II TM Dist: >3cm Neck ROM: Full Heart: RRR Lungs: CTA Assessment and Plan Assessment Anesthesia Assessment: Anesthesia Plan Discussed Final Anesthetic Review Family History of Problems with Anesthesia: No History of Problems with Anesthesia: No NPO: Yes ASA Class: II Final Preanesthetic Review: Meds/Allgs Chart Reviewed, Consent Obtained/Reviewed and Anes Risks/Benef Reviewed Patient Risk: Intermediate Procedure Risk: Low Anesthetic Plan Anesthetic Plan: GA Disposition: Standard PACU
[2024-12-11] MEDS: fentaNYL citrate/PF 100 MCG/2 ML VIAL 50 MCG IVPUSH (09:05)
[2024-12-11] MEDS: Acetaminophen 1,000 MG/100 ML PIGGYBACK 400 MG IV (09:07)
--- NOTE | 2024-12-12 10:06 | PC.NURSE ---
discussion with patient on post op instructions. sent by email confirmed 12/12/24 at 10am.
== END 2024-12-11 10:02 | disposition home or self-care (01) ==
PROVIDERS: PCP Nurse Practitioner Family; Visit Provider Urology
PROC: (CPT 55250; principal; 2024-12-11 07:30)
DX: Z30.2 Encounter for sterilization (principal); F41.9 Anxiety disorder, unspecified; R53.83 Other fatigue; Z87.828 Personal history of other (healed) physical injury and trauma; Z79.899 Other long term (current) drug therapy
CPT/HCPCS: 55250; 88302; J0131; J0330; J0690; J1100; J2003; J2250; J2405; J2704; J2795; J3010

== ENCOUNTER → 2024-12-11 06:06 | Outpatient (BNV) | payer OTHER, SELFPAY | PROVIDERS: PCP Nurse Practitioner Family; Visit Provider Urology | DX: Z30.2 Encounter for sterilization (principal) | CPT/HCPCS: 55250 ==

== ENCOUNTER 2024-12-28 08:16 | Outpatient (AMB) | payer OTHER, SELFPAY ==
--- NOTE | 2024-12-28 08:17 | AM.OFFWIN_ITS ---
Intake Vital Signs 12/28/24 08:18 Height 6 ft Weight 297 lb 2 oz BMI 40.3 BP 102/60 Blood Pressure Location Lt brachial Position Sitting Pulse 64 Pulse Source Pulse Oximeter Temp 98.1 F Temp Source Oral Pulse Oximetry (%) 96 Oxygen Delivery Method Room Air Intake Visit Reasons: EP Bite on leg? Infected? Intake Note: Patient present with a ?able bug bites times 3 days bilateral legs Patient Tobacco Use Status: Never used Tobacco Guard Chief Required: No Allergies No Known Allergies Allergy (Verified 12/28/24 08:22) Medication List - Last Reconciled 12/28/24 by Kelli Ruiz MD multivitamin 1 tab PO DAILY HPI EP Bite on leg? Infected? HPI0 Details History - The patient is a 39-year-old male pres enting with possible insect bites. - The patient reports an initial bite on the left leg, suspected to be by a spider, occurring on Tuesday of the current week. - The left leg bite became painful on night of the incident. - The following day while at work, the p atient noticed increased hardness and discharge from the bite area. - Progression led to additional lesions appearing later in the day, first on the ankle and then other areas of the leg. - The patient sought treatment at a clin ic where the wounds were cleaned and bandaged; however, no antibiotics were provided. - Lesions have persisted for three days, with some appearing to resemble mosquito bites. - The patient has been documenting the l esions with photographs. - No fever or chills reported. - The lesions exhibit weeping, redness, and hardness under the skin jan to marble. - There are two holes noted on one lesio n, indicating possible spider venom reaction. Medications: - Cortisone 10 (topical) for use on lesi ons as per patient report. Social History: - The patient is employed in the [employer]. Problem List - Possible insect bites with secondary i nfection - Localized skin infection reaction Patient Instructions - Shower with soap and water to cleanse the area. - No need for additional bacterial cream . - Follow prescribed course of antibiotic s doxycycline b.i.d. for 10 days and prednisone for treatment of infection and inflammation. Review of Systems - General: No fever no chills - Neurological: No headaches no dizziness - Ear nose throat: No sore throat no hearing difficulty no ear pain - Cardiovascular: No syncope, no chest pain, no palpitations - Gastrointestinal: No nausea vomiting or diarrhea Physical Exam General: No acute distress HEENT: No acute findings Neck: Supple Respiratory system: Able to talk in full sentences, Gastrointestinal: No pain Extremities: Multiple discrete papules on legs, first the left leg and then the right leg, with some lesions weeping clear liquid; appears to be a reaction to insect bites PUBLIC DEFENDER: Alert awake oriented x3 [facility] Medical History Head injury Surgical History History of appendectomy Family History Paternal Grandfather Heart disease Diabetes [facility] Alcohol intake: current Alcohol intake frequency: a few times a week Patient Tobacco Use Status: Never used Tobacco e-Cigarette/Vaping Use: Never Used service: Yes Current occupational status: employed Current occupation: Cognitive needs: No Hearing needs: No Vision needs: Yes Physical Exam Vital Signs: Last Vital Signs Temp 98.1 F 12/28/24 08:18 Pulse 64 12/28/24 08:18 BP 102/60 12/28/24 08:18 Pulse Ox 96 12/28/24 08:18 Oxygen Delivery Method Room Air 12/28/24 08:18 BMI result Body Mass Index 40.3 Assessment & Plan Assessment & Plan (1) Spider bite: Code(s): T63.301A - Toxic effect of unspecified spider venom, accidental (unintentional), initial encounter Qualifiers: Encounter type: initial encounter Injury intent: accidental or unintentional Qualified Code(s): T63.301A - Toxic effect of unspecified spider venom, accidental (unintentional), initial encounter (2) Cellulitis, leg: Code(s): L03.119 - Cellulitis of unspecified part of limb Qualifiers: Laterality: left Qualified Code(s): L03.116 - Cellulitis of left lower limb Plan History - The patient is a 39-year-old male presenting with possible insect bites. - The patient reports an initial bite on the left leg, suspected to be by a spider, occurring on Tuesday of the current week. - The left leg bite became painful on the night of the incident. - The following day while at work, the patient noticed increased hardness and discharge from the bite area. - Progression led to additional lesions appearing later in the day, first on the ankle and then other areas of the leg. - The patient sought treatment at a clinic where the wounds were cleaned and bandaged; however, no antibiotics were provided. - Lesions have persisted for three days, with some appearing to resemble mosquito bites. - The patient has been documenting the lesions with photographs. - No fever or chills reported. - The lesions exhibit weeping, redness, and hardness under the skin jan to marble. - There are two holes noted on one lesion, indicating possible spider venom reaction. Medications: - Cortisone 10 (topical) for use on lesions as per patient report. Social History: - The patient is employed in the [employer]. Problem List - Possible insect bites with secondary infection - Localized skin infection reaction Patient Instructions - Shower with soap and water to cleanse the area. - No need for additional bacterial cream. - Follow prescribed course of antibiotics doxycycline b.i.d. for 10 days and prednisone for treatment of infection and inflammation. Medications: New prednisone 20 mg PO DAILY 5 tabs 0RF 5 days doxycycline hyclate 100 mg PO BID 14 caps 0RF 7 days Coding Level of Care Code Est Pt Level 3 (41374) Diagnoses Spider bite wound, accidental or unintentional, initial encounter T63.301A Encounter type: initial encounter Injury intent: accidental or unintentional Cellulitis of left lower extremity L03.116 Laterality: left
--- OUTSIDE RECORDS SUMMARY | 2024-12-28 08:17 | XMS_ITS | Continuity of Care Document ---
Author Name [facility] Organization [facility] Care Team Providers Care Helper Metal Hanging Name Role Phone [facility] Unavailable Unavailable Problems Combined list of problems [...] Known Allergies Drug allergy (disorder) active 07/11/2012 [facility] [place] [address] Immunizations Combined list of available immunizations from the Department of Defense and Veterans Affairs facilities. Immunization Series Date Given Administered By Site Reaction Lot Number CVX Code Drug Lens Molder Status Comments Source influenza, injectable, quadrivalent- pf 2022 150 GlaxoSmithKli ne complet ed influenza , injectabl e, quadrival ent-pf 05/25/23 Given Ambulat ory Pharmac y tetanus, diphtheria, acellular pertu is 2022 [id number] sanofi pasteur complet ed tetanus, diphtheri a, acellular pertussis 07/15/22 Given Ambulat ory Pharmac y Influenza, inj, MDCK, quadrivalent- pf 2021 171 Seqirus complet ed Influenza , inj, MDCK, quadrival ent-pf 03/16/22 Given Ambulat ory Pharmac y COVID Vaccine Pfizer 2020 [id number] 208 PFIZER complet ed COVID Vaccine Pfizer 05/24/21 Given Ambulat ory Pharmac y COVID Vaccine Pfizer 2020 [id number] 208 PFIZER complet ed COVID Vaccine Pfizer 05/24/21 Given Ambulat ory Pharmac y influenza, seasonal, injectable 2020 [id number] 141 Seqirus complet ed influenza , seasonal, injectabl e 03/26/21 Given Ambulat ory Pharmac y influenza, seasonal, injectable 2020 [id number] 141 Seqirus complet ed influenza , seasonal, injectabl e 03/26/21 Given Ambulat ory Pharmac y Influenza, inj, MDCK, quadrivalent- pf 2020 171 complet ed Influenza , inj, MDCK, quadrival ent-pf 03/26/21 Given Ambulat ory Pharmac y Influenza, injectable, MDCK, preservative free, quadrivalent 2020 [id number], () Not Given Influenza , injectabl e, MDCK, preservat rodrick free, quadrival ent DoD COVID Vaccine Moderna 2020 [id number] complet ed COVID Vaccine Moderna 07/25/20 Given Ambulat ory Pharmac y COVID Vaccine Moderna 2020 [id number] 207 complet ed COVID Vaccine Moderna 07/25/20 Given Ambulat ory Pharmac y COVID Vaccine Moderna 2020 [id number] 207 complet ed COVID Vaccine Moderna 06/26/20 Given Ambulat ory Pharmac y COVID Vaccine Moderna 2020 [id number] 207 complet ed COVID Vaccine Moderna 06/26/20 [...] quadrival ent DoD influenza, seasonal, injectable-pf 2018 [id number] 140 Seqirus complet ed influenza , seasonal, injectabl e-pf 04/12/19 Given Ambulat ory Pharmac y influenza, injectable, quadrivalent- pf 2018 150 complet ed influenza , injectabl e, quadrival ent-pf 04/12/19 Given Ambulat ory Pharmac y influenza, seasonal, injectable-pf 2018 [id number] 140 Seqirus complet ed influenza , seasonal, injectabl e-pf 04/12/19 Given Ambulat ory Pharmac y influenza, injectable, quadrivalent, preservative free 2018 [id number], () Not Given influenza , injectabl e, quadrival ent, preservat rodrick free DoD anthrax vaccine 2018 [id number] Emergent Biosolutions complet ed anthrax vaccine 10/22/18 Given Ambulat ory Pharmac y anthrax vaccine 2018 [id number] 24 Emergent Biosolutions complet ed anthrax vaccine 10/22/18 Given Ambulat ory Pharmac y typhoid Vi capsular polysaccharid e vac 2018 [id number] 101 sanofi pasteur complet ed typhoid Vi capsular polysacch aride vac 09/07/18 Given Ambulat ory Pharmac y anthrax vaccine 2018 [id number] 24 Emergent Biosolutions complet ed anthrax vaccine 09/07/18 Given Ambulat ory Pharmac y poliovirus vaccine, inactivated 2018 [id number] 10 sanofi pasteur complet ed polioviru s vaccine, inactivat ed 09/07/18 Given Ambulat ory Pharmac y typhoid Vi capsular polysaccharid e vac 2018 [id number] 101 sanofi pasteur complet ed typhoid Vi capsular polysacch aride vac 09/07/18 Given Ambulat ory Pharmac y anthrax vaccine 2018 [id number] 24 Emergent Biosolutions complet ed anthrax vaccine 09/07/18 Given Ambulat ory Pharmac y poliovirus vaccine, inactivated 2018 [id number] 10 sanofi pasteur complet ed polioviru s vaccine, inactivat ed 09/07/18 Given Ambulat ory Pharmac y influenza, injectable, quadrivalent- pf 2017 [id number] 150 Seqirus complet ed influenza , injectabl e, quadrival ent-pf 04/22/18 Given Ambulat ory Pharmac y Influenza, injectable, quadrivalent, preservative free 7 2017 [id number] 150 Seqirus (SEQ) comple t ed Influenza , injectabl e, quadrival ent, preservat rodrick free DoD influenza, injectable, quadrivalent 2016 [id number] 158 complet ed influenza , injectabl e, quadrival ent 04/06/17 Given Ambulat ory Pharmac y influenza, injectable, quadrivalent, contains preservative 1 2016 [id number] 158 Transcribed (TRS) complet ed influenza , injectabl e, quadrival ent, contains preservat rodrick DoD measles/mumps /rubella virus vaccine 2016 [id number] 03 Merck & Company Inc complet ed measles/m umps/rube lla virus vaccine 11/07/16 Given Ambulat ory Pharmac y measles, mumps and rubella virus vaccine 2 2016 [id number] 03 Merck (MSD) complet ed measles, mumps and rubella virus vaccine DoD measles/mumps /rubella virus vaccine 2016 [id number] 03 Merck & Company Inc complet ed measles/m umps/rube lla virus vaccine 08/21/16 Given Ambulat ory Pharmac y measles, mumps and rubella virus vaccine 1 2016 [id number] 03 Merck (MSD) complet ed measles, mumps and rubella virus vaccine DoD influenza, seasonal, injectable-pf 2015 [id number] 140 Seqirus complet ed influenza , seasonal, injectabl e-pf 04/03/16 Given Ambulat ory Pharmac y Influenza, seasonal, injectable, preservative free 0 2015 [id number] 140 Seqirus (SEQ) comple t ed Influenza , seasonal, injectabl e, preservat rodrick free DoD influenza, seasonal, injectable-pf 2014 [id number] 140 CSL Behring complet ed influenza , seasonal, injectabl e-pf 03/23/15 Given Ambulat ory Pharmac y Influenza, seasonal, injectable, preservative free 4 2014 [id number] 140 CSL Phase Holographic Imagingapies, Inc. (CSL) complet ed Influenza , seasonal, injectabl e, preservat rodrick free DoD Influenza, injectable, MDCK-pf 2013 [id number] 153 Novartis Pharmaceutica ls complet ed Influenza , injectabl e, MDCK-pf 03/24/14 Given Ambulat ory Pharmac y Influenza, injectable, Madin Wilmar Canine Kidney, preservative free 0 2013 [id number] 153 Novartis Pharmaceutica l Prashant. (NOV) complet ed Influenza , injectabl e, Madin Wilmar Canine Kidney, preservat rodrick free DoD hepatitis A adult vaccine 2013 [id number] 52 GlaxoSmithKli ne complet ed hepatitis A adult vaccine 10/21/13 Given Ambulat ory Pharmac y hepatitis A vaccine, adult dosage 2 2013 [id number] [facility] ([facility] complet ed hepatitis A vaccine, [...] adult dosage 1 2012 [id number] 52 [employer] (SKB) complet ed hepatitis A vaccine, adult dosage DoD tuberculin purified protein derivative 2012 [id number] 96 [facility] complet ed tuberculi n purified protein derivativ e 06/30/12 Given Ambulat ory Pharmac y influenza, seasonal, injectable-pf 2012 [id number] 140 CSL Behring complet ed influenza , seasonal, injectabl e-pf 06/30/12 Given Ambulat ory Pharmac y meningococcal A,C,Y,W-135 (MCV4P) 2012 [id number] 114 sanofi pasteur complet ed meningoco ccal A,C,Y,W-1 35 (MCV4P) 06/30/12 Given Ambulat ory Pharmac y adenovirus vaccine, live 2012 [id number] 5 143 Teva Pharmaceutica ls complet ed adenoviru s vaccine, live 06/30/12 Given Ambulat ory Pharmac y poliovirus vaccine, inactivated 2012 H1605 10 sanofi pasteur complet ed polioviru s vaccine, inactivat ed 06/30/12 Given Ambulat ory Pharmac y tetanus, diphtheria, acellular pertu is 2012 [id number] 115 [facility] complet ed tetanus, diphtheri a, acellular pertussis 06/30/12 Given Ambulat ory Pharmac y tuberculin purified protein derivative 2012 [id number] 96 [facility] complet ed tuberculi n purified protein derivativ e 06/30/12 Given Ambulat ory Pharmac y poliovirus vaccine, inactivated 1 2012 [id number] 10 Sanofi Pasteur ([facility]) complet ed polioviru s vaccine, inactivat ed DoD meningococcal polysaccharid e (groups A, C, Y and W-135) diphtheria toxoid conjugate vaccine (MCV4P) 1 2012 [id number] 114 Sanofi Pasteur ([facility]) complet ed meningoco ccal polysacch aride (groups A, C, Y and W-135) diphtheri a toxoid conjugate vaccine (MCV4P) DoD tetanus toxoid, reduced diphtheria toxoid, and acellular pertu is vaccine, adsorbed 1 2012 [id number] 2BA 115 [employer] (SKB) complet ed tetanus toxoid, reduced diphtheri a toxoid, and acellular pertussis vaccine, adsorbed DoD Influenza, seasonal, injectable, preservative free 1 2012 [id number] 140 CSL Biotherapies, Inc. (CSL) complet ed Influenza , seasonal, injectabl e, preservat rodrick free DoD Adenovirus, type 4 and type 7, live, oral 1 2012 [id number] 5 143 [facility] (BRR) complet ed Adenoviru s, [...] Prevention' s HIV diagnostic algorithm. Refer to [facility] Lab Guide for additional information : [email or web address]/ [email or web address] x [...] ADM Date DC Date Status Disposition Source [facility] [place] [address](Opt ometry Clinic BMT [facility]) OUTPATIENT [id number] CHAPO WORKMAN 07/06 Released w/o Limitations [facility] [address](O ptometr y Clinic BMT [facility]) [facility] [place] [address](MAS Lewis) OUTPATIENT [id number] Notes Entered by: PHANI TINSLEY 11 Jul 2012 0735 ------- ------- ------- ------- -- Cold/Pa in pack KYLEE_FABIAN SOLOMON S 07/11 Released w/o Limitations [facility] [place] [address](M Lewis) [facility] [place] [address](MAS Lewis) OUTPATIENT [id number] Notes Entered by: FABIAN MCLEAN 21 Jul 2012 0900 ------- ------- ------- ------- -- minor cold sx/ minor pain DAYDAY BRAGA 07/21 Released w/o Limitations [facility] [place] [address](M Lewis) [facility] [place] [address](MAS Lewis) OUTPATIENT [id number] Notes Entered by: PHANI TINSLEY 02 Aug 2012 0729 ------- ------- ------- ------- -- Cold/Pa in pack LEWIS AVILA 08/02 Released w/o Limitations [facility] [place] [address](M Lewis) [facility] [place] [address](MAS Lewis) OUTPATIENT [id number] Notes Entered by: DAYDAY BRAGA 17 Aug 2012 0757 ------- ------- ------- ------- -- Cold Pack DAYDAY BRAGA 08/17 Released w/o Limitations [facility] [place] [address](M Lewis) Theater Facility OUTPATIENT [id number] 4 Theater Provider 03/22 Released w/o Limitations [facility] 8344R-439 AMDS Between Visit [id number] 10/01 Discharge Disposition: Home or Self Care 8344R-4 39 AMDS 8344R-439 AMDS Between Visit [id number] 10/08 Discharge Disposition: Home or Self Care 8344R-4 39 AMDS 8344R-439 AMDS Outpatient [id number] ALLA LAINEZ 10/17 Discharge Disposition: Home or Self Care 8344R-4 39 AMDS 8344R-439 AMDS Between Visit [id number] 11/27 Discharge Disposition: Home or Self Care 8344R-4 39 AMDS 8344R-439 AMDS Between Visit [id number] 12/18 Discharge Disposition: Home or Self Care 8344R-4 39 AMDS Procedures Combined list of: 1) Procedures from Department of Veterans Affairs facilities going back up to [facility] 18 months, not all VA non-surgical procedures are included; 2) All procedures from the Department of Defense facilities. Procedure Procedure Type Code Date Perfomer Comments Sourc e No data available for this section Ambulatory Pharmacy Screening Test Of Visual Acuity, Quantitative, Bilateral Screening Test Of Visual Acuity, Quantitative, Bilateral 89463 07/06/2012 TOSHIA WHALEN. [facility] Fitting Monofocals (Not For Aphakia) [facility] Fitting Monofocals (Not For Aphakia) 55013 07/06/2012 TOSHIA WHALEN. [facility] Social History Combined list of available smoking, tobacco, and other social history from Department of Defense and Veterans Affairs facilities. Social History Type Response Date Comment Sourc e Sex Representation Male (finding) 07/01/2022 Un known Organization Sexual Orientation Ambula tory Pharmacy Gender identity Ambulator y Pharmacy This section is an empty social history section. [facility] Assessment and Plan Combined list of future [...] ESTEBAN on October 19, 2024 09:37 EDT V itals: Blood Pressure: 1 Heart Rate: 61 Height: 72 Weight: 290 Medications: None Chronic Problems: None SF 507: Reviewed no changes from PHAQ Comments: Addendum by ALLA RIVER MD on October 19, 2024 09:57 EDT Chief Complaint: Member here for annual PHA. N o acute complaints. I MR amaya bae. HEENT: N ormal Joints: N ormal Lungs: N ormal Heart: N ormal Comments: ANNUAL PERIODIC HEALTH ASSESSMENT I. CRABBER INFORMATION AND DEMOGRAPHICS (SMI) 1. Last Name: ASHA 2. First Name: LIAM 3. Middle Name: BRAYDEN 4. Assessment Date: 5. : 6. Age: 39 7. Sex: M 8. DoD ID Number: [id number] 9. Service Branch: [employer] 10. 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 Status: Active [employer] [place] 12. 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 Unit Name: [address] CONTINGENCY RESPON FT 14. Duty Station/Location: [place] 15. UIC: [id number] 16. Is this your first Periodic Health Assessment (PHA)?: N 17. Are you enrolled in a secure messaging system with your health care provider?: N 18. Current contact information: Preferred Method: Email 1 DSN: [id number] Day Time Phone: [phone] Night Time Phone: [phone] Email 1: [email or web address] Email 2: Address: [address] [place] [address] City: [place] State: [place] Zip Code: [address] 19. Point of contact who can always reach you: Name: Melinda Plata Phone 1: [phone] Phone 2: EMAIL: Address: City: State: Zip Code: II. DEPLOYMENT INFORMATION (DEP) 1. [ 0 ] Total number of deployments in the PAST 5 YEARS 4. [ N ] Are you going to deploy within the NEXT 120 DAYS? III. OCCUPATIONAL INFORMATION (OCC) 1 [ [id number] ] What is your occupational code 2. [ Radio Communications ] Describe your typical duty 3. [ No ] Does your specialty require an operational duty physical exam? 4. [ No ] Are you currently enrolled in a medical surveillance/occupational health program?: No IV. MEDICAL CONDITIONS (SHANNON): 1. Since your last PHA, have you [...] easily startled? 6. d. [ No ] [place] numb or detached from others, activities, or your surroundings? 6. e. [ Not answered ] [place] guilt or unable to stop blaming yourself [...] like to schedule a visit with a market master, mental health care provider, or a community [...] 8. [ None ] What prescriptions or tmro-lrd-lsmnokn medications are you CURRENTLY taking for health [...] had a cholesterol check by a health nanny caregiver within the PAST 5 YEARS? 13.a. In [...] discuss any health concerns? XI. SEPARATION AND PENITENTIARY 1. [ No ] Are you planning to separate or retire within the next year from Active Duty or [place] Duty (activated for greater than 30 continuous days) OR do you intend to file a claim for disability compensation with the Veterans Benefits Administration? PART B. RECORD REVIEW AND RECOMMENDATIONS I. RECORD REVIEWER INFORMATION 1. Last Name: CARLITO 2. First Name: CHUCK 3. Middle Name: Shyann 4. Service Branch: [employer] 5. Status: Active [employer] [place] or Full-Time Support 6. 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 EMAIL: [email or web address] 8. Facility: [facility] 9. Unit: [facility] 10. Address: [address] [place] [address] 11. State: [facility]. Zip Code: [address] 13. 14. Date Record Review: II. MEDICAL SCREENING 1. [ ] Date of bioinformatics team member's most recent PHA 2. [ 5 feet 11 inches Date: ] bioinformatics team member's most recently documented height 3. [ 242 pounds Date: ] bioinformatics team member's most recently documented weight 4. [ 124/75 Date: ] bioinformatics team member's most recently documented blood pressure reading 5. [ No ] Does the bioinformatics team member have a history of abnormal blood pressure since their last PHA? 6. [ Yes ] Does the bioinformatics team member have a laboratory test of sickle cell trait documented in their permanent medical record? 7. [ No Cholesterol Test Documented ] What is the date of the bioinformatics team member's most recently documented cholesterol test? 9. [ No Active Medications Documented ] List of bioinformatics team member's active medications listed in their permanent medical record 10. [ No ] Is there a discrepancy between the active medication record review and the bioinformatics team member's self-reported list of medications? 11. [ Seen for knee pain, concussion ] List documented significant care the bioinformatics team member has received since their last PHA from a provider OUTSIDE the Health System 12. [ Yes: Seen for knee pain, concussion ] Is there a discrepancy between the bioinformatics team member's list of OUTSIDE care (from OT5), and the OUTSIDE care found in the record? 13. [ No Inside Care Documented ] List documented significant care the bioinformatics team member has received since their last PHA from a provider INSIDE the Health System 15. [ Not Answered ] Confirm that vaccine exemptions are listed in the medical record for each vaccine listed IV. FAMILY HISTORY AND LIFESTYLE 1. [ Yes ] Does the ME2839 reflect the bioinformatics team member's reported family history? VII. INDIVIDUAL MEDICAL READINESS 1. [ No ] Does the bioinformatics team member have an Assignment Limitation Code C? 3. [ Classification: 1 ] Most recently documented dental exam 4. [ Yes ] Is the bioinformatics team member current on all required immunizations in the immunization tracking system? 5. [ Yes ] Is the bioinformatics team member current with Service-specific requirements for glasses and gas mask inserts? 6. Does the bioinformatics team member have the following laboratory tests [...] need to be forwarded to the Health Powerhouse Mechanic Helper completing PART C: Life stressors: family/relationship, employment [...] 6. Title: Physician (DO ONIEL) 7. EMAIL: [email or web address] 8. Facility: [facility] 9. Unit: [facility] 10. Address: [address] [place], [place] [address]Agueda [place] 11. State: [place] 12. Zip Code: [address] 13. Phone: [phone] 14. Date HCP Review initiated: 1. Member [...] ASSESSMENT (PHA) PROVIDER INFORMATION 1. Last Name: RIVER 2. First Name: ALLA 3. Middle Name: 4. Service Branch: [employer] 5. Status: Reservist 6. Title: Physician (DO ONIEL) 7. EMAIL: [email or web address] 8. Facility: [facility] 9. Unit: [facility] 10. Address: [address] [place] [address] 11. State: [place] 12. Zip Code: [address] 13. Phone: [phone] 14. Date HCP Review initiated: IV. PERIODIC HEALTH ASSESSMENT PROVIDER RECOMMENDATIONS and REFERRALS 1. Provider concerns with this assessment: No issues or concerns identified V. SUMMARY AND COMMENTS 1. Additional information summarizing findings during the bioinformatics team member assessment: 2. Provider Comments: . INDIVIDUAL MEDICAL READINESS DISPOSITION DETERMINATION [place]: Ready DEN: Ready IMM: Ready LAB: Ready ME: Ready IMR Status: Fully Medically Ready VII. SERVICE MEDICAL DEPLOYABILITY EVALUATION INDICATED Based on your review of all documentation, is the bioinformatics team member medically deployable without limitations? Reference [place] 6490.07 Yes (bioinformatics team member DOES NOT currently have a medical condition that limits deployability) Date PHA Completed: END OF [id number] REPORT Impression:Does not meet m edical standards per KELIN 48-123/MSD. Disposition: N o AF469 changes based on this encounter.[employer] Qualified. 12/28/2024 8344R-439 AMDS Functional Status Combined list of recent functional and cognitive assessments recorded at Department of Defense and Veterans Affairs (VA).VA Functional [place] Measurement (FIM) Scale: 1 = Total Assistance (Subject = 0% +), 2 = Maximal Assistance (Subject = 25% +), 3 = Moderate Assistance (Subject = 50% +), 4 = Minimal Assistance (Subject = 75% +), 5 = Supervision, 6 = Modified [place] (Device), 7 = Complete [place] (Timely, Safely). Assessment Date/Time Source Assessment Type Assessment Skill Assessment Score Assessment Details No data available for this section
[2024-12-28 08:18] VITALS: BP 102/60; PULSE 64; TEMP 36.7; O2SAT 96; BMI 40.3
--- OUTSIDE RECORDS SUMMARY | 2024-12-28 08:19 | XMS_ITS | Clinical Summary ---
Author Organization [facility] ity Address [address] [place] [address] Care Team Providers Care Draw Bench Operator Helper Name Role Phone Unavailable Primary Care Provider [...] - 19+ 3-dose series) 2003 COVID-19 Vaccine ( - 2023-2 5 season) 2024 Influenza Vaccine (#1) 2025 HIB Vaccines Aged Out No longer [...] 5 Years) and At-Risk Patients (6 to 49 Years) Aged Out No longer eligible b ased on patient's age to complete this topic RSV Immunization Patients Un narda 20 months Aged Out No longer eligible b ased on patient's age to complete this topic Varicella Vaccines Aged Out No longer eligible based on patient's age to complete this topic
--- OUTSIDE RECORDS SUMMARY | 2024-12-28 08:19 | XMS_ITS | Patient Health Record ---
Author Organization [facility] Rebekah moy Osseo Address [address] [facility] [address] [facility] [facility] [place] [address] Care Team Providers Care Assistant Clinical Director Name Role Phone Khari Rosas Primary Care Provider Unav Donnell Martinez Unavailable [phone] Allergies No Known Allergies Reason For Referral No Information Medications Medication SIG (Take, Route, Frequency, Duration) Notes Start Date End Date Status Night Splint AFO - L1930 1 wear at rest; Duration: 30 days Not-Taking Multivitamin - 1 tablet [...] X ray : Foot, right 3V 01/26/2023 [id number] TENDON SHEATH/LIGAMENT 1 Insurance Providers Payer Name Payer Address Payer Phone Subscriber Number Group Number Insured Name Patient Relationship to Insured Coverage Start Date Coverage End Date [employer] [address] [place] [id number] Dev Siu Self - patient is the insured Medical (General) History Medical History History ICD Code Chicken pox Surgical History Surgery Date(Month/Year) appendectomy 1997
== END 2024-12-28 08:49 | disposition home or self-care (01) ==
PROVIDERS: PCP Nurse Practitioner Family; Visit Provider Internal Medicine
DX: L03.116 Cellulitis of left lower limb (principal); T63.301A Toxic effect of unspecified spider venom, accidental (unintentional), initial encounter

== ENCOUNTER → 2024-12-28 08:16 | Outpatient (BNVA) | payer OTHER, SELFPAY | PROVIDERS: PCP Nurse Practitioner Family; Visit Provider Internal Medicine | DX: T63.301A Toxic effect of unspecified spider venom, accidental (unintentional), initial encounter (principal); L03.116 Cellulitis of left lower limb | CPT/HCPCS: 99212 ==

== ENCOUNTER 2025-01-04 08:31 | Outpatient (RCR) | payer OTHER, SELFPAY ==
--- NOTE | 2024-11-29 15:29 | MHC.OT.EP ---
[address] [phone] Occupational Therapy Plan of Care Patient Name: Dev Siu Date of Evaluation: 11/29/24 Diagnosis: ECU tendinopathy Pain Location: Mostly pain free at rest High pain w/ rotation, tender to palpate at ulna Pain Score: 8 Pain Scale Used: Numeric (0 - 10) Aggravating Factors: Gripping, twisting, rotation Alleviating Factors: Wearing brace Assessment: 39 yo male was walking up stairs, tripped and fell onto hand w/ wrist landing in bad position. He continued to have pain for about a month and was referred to orthopedics for assessment. X-ray (-) for acute changes, diagnosed w/ wrist strain and ECU tendinopathy. On assessment today, he has tenderness over ulnar wrist w/ tightness in end range all planes. 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 No instability noted in wrist. We will continue hand therapy services for pain, edema and progression of strengthening for every day activity. Frequency and Duration: The patient will be seen 2x/wk for 4 weeks Short Term Goals: Ind w/ orthosis wear Good follow through w/ HEP Good follow through w/ joint protection/activity modification Residential Goals: Wean from orthosis wear Right gross grasp >120lb Pain free w/ moderate home care tasks Treatment Plan: Therapeutic Exercise Therapeutic Activity Home Exercise Program Splinting Patient Education Edema Control ADL Training Ultrasound Iontophoresis Paraffin Fluidotherapy MHP Cold Packs Soft Tissue Mobilization Kinesiotaping Wrist orthosis Ionto w/ dexamethasone Electronically Signed By: TOM Larose/Vangie CHT Please Sign and return to therapist. Thank you once again for your referral.
--- NOTE | 2025-01-10 13:48 | MHC.OT.DC ---
[address] [phone] F: [phone] Occupational Therapy Discharge Note Patient Name: Dev Siu Provider: Bryan Sherman PA-C Diagnosis: Right ECU tendinopathy Date of Evaluation: 11/29/24 Treatments to Date: 9 Discharge Status: Achieved Goals Improved Function Independent with HEP Discharge Summary: Dev was referred to OT w/ right wrist pain consistent with ECU tendinopathy./ He has done well w/ course of hand therapy and is doing well. He is pain free at most times and doing well w/ initiation of strengthening, has tools he needs to continue at home. Electronically Signed By: TOM Larose/Vangie CHT Reviewed/agree with student documentation: Therapist: Please Sign and return to therapist, thank you for your referral.
== END 2025-01-10 13:48 | disposition home or self-care (01) ==
LOC: HO.OT 08:31
PROVIDERS: PCP Nurse Practitioner Family
DX: M77.8 Other enthesopathies, not elsewhere classified (principal)
CPT/HCPCS: 97033; 97110; 97140; 97165

== ENCOUNTER 2025-03-14 15:21 | Outpatient (AMB) | payer OTHER, SELFPAY ==
--- NOTE | 2025-03-14 15:40 | MHC.OFFVIS ---
Intake Visit Reasons: Vasectomy follow up Intake Note: Patient presents today for a vasectomy follow up Urology Medication:none Blood Thinner:none Antibiotic Allergies:none Allergies No Known Allergies Allergy (Verified 03/14/25 15:41) HPI Comments Details: 03/14/25--Khari is here post vasectomy he has brought in a semen sample so that I can evaluate under the microscope to rule out sperm being present. He has seen the nurse practitioner in November of this year he had concerns regarding his testosterone level with symptoms of generalized fatigue. His levels were low normal. I will have him follow-up with the nurse practitioner if he still has these concerns. Results - Semen analysis: Presence of sperm observed Plan 1. Post-Vasectomy Evaluation - Repeat semen analysis in eight weeks to reassess for the presence of sperm. - Continue using protection until confirmation of azoospermia. 2. Low Normal Testosterone Levels - Follow-up with nurse practitioner if symptoms persist. - Consider alternative treatment options if current prescription is not covered by insurance. 12/05/24--Chano is a 39-year-old male patient of Dr. Montiel. He has a past medical history of a head injury. He is being followed up on today via video telehealth for his borderline hypogonadism. Of note, patient was seen approximately [address] Prosper Simon at which time he he underwent vasectomy evaluation. He does have a vasectomy scheduled in the operating room next week on 12-11. However, he had been reporting generalized fatigue and was enquiring further assessment evaluation of his testosterone levels. These labs were ordered and obtained. These results were reviewed and communicated with the patient today. Testosterone: 10/12 332 Free testosterone: 10/12 60.1 We discussed testosterone replacement verses testosterone protestant. We discussed risks and benefits of these interventions. He otherwise denies any bothersome urinary issues. He reports be happy with current voiding parameters. All questions were answered. [facility] Medical History Head injury Surgical History History of appendectomy Family History Paternal Grandfather Heart disease Diabetes Social History Housing: Condominium Alcohol intake: current Alcohol intake frequency: a few times a week Patient Tobacco Use Status: Never used Tobacco e-Cigarette/Vaping Use: Never Used service: Yes Current occupational status: employed Current occupation: Cognitive needs: No Hearing needs: No Vision needs: Yes Review of Systems Const All systems reviewed & are unremarkable except as noted in HPI and below Reports no additional complaints Eyes Reports no additional complaints ENT Reports no additional complaints Card Reports no additional complaints Resp Reports no additional complaints GI Reports no additional complaints Reports as per HPI Musc Reports no additional complaints Skin/Breast Reports system reviewed and no additional complaints, except as documented Neuro Reports no additional complaints Psych Reports no additional complaints Endo Reports no additional complaints Raul/Lymph Reports no additional complaints Aller/Immun Reports no additional complaints Assessment & Plan Assessment & Plan (1) Status post vasectomy: Code(s): Z98.52 - Vasectomy status Category: Surgical (2) Low serum testosterone: Code(s): R79.89 - Other specified abnormal findings of blood chemistry Category: Medical Plan Plan 1. Post-Vasectomy Evaluation - Repeat semen analysis in eight weeks to reassess for the presence of sperm. - Continue using protection until confirmation of azoospermia. 2. Low Normal Testosterone Levels - Follow-up with nurse practitioner if symptoms persist. - Consider alternative treatment options if current prescription is not covered by insurance. Patient Instructions: The patient had an opportunity to ask questions regarding treatment plan. The patient expressed understanding and agreement with the above treatment plan. The patient is aware they should contact our office by phone for worsening of their current condition or the appearance of new symptoms. Compliance is encouraged with any medications and followup testing that is ordered. It is a privilege to be allowed the opportunity to participate in the urologic care of your patient. If you have any questions or concerns regarding treatment for the above conditions please do not hesitate to contact me. The office telephone contact is [phone]. This note is constructed in part using voice recognition software. While every effort has been made to ensure accuracy trim mechanic errors may have been included. Yours sincerely, Ella Cunningham MD Scribe Plan - Not visible on output: Patient was informed and verbally consented to the use of an ambient scribe for clinic note documentation during this visit. Coding Level of Care Code Est Pt Level 3 (70857) Diagnoses Status post vasectomy Z98.52 Low serum testosterone R79.89
--- OUTSIDE RECORDS SUMMARY | 2025-03-14 19:28 | XMS_ITS | Patient Health Record ---
Author Organization [facility] Rebekah moy [place] Address [address] [place] [address] Care Team Providers Care Heart Coordinator Name Role Phone Khari Rosas Primary Care Provider Unav Donnell Martinez Unavailable [phone] Allergies No Known Allergies Reason For Referral [...] X ray : Foot, right 3V 01/26/2023 [id number] TENDON SHEATH/LIGAMENT 1 Insurance Providers Payer Name Payer Address Payer Phone Subscriber Number Group Number Insured Name Patient Relationship to Insured Coverage Start Date Coverage End Date [employer] [address] [place] [id number] Dev Siu Self - patient is the insured Medical (General) History Medical History History ICD Code Chicken pox Surgical History Surgery Date(Month/Year) appendectomy 1997
--- OUTSIDE RECORDS SUMMARY | 2025-03-14 19:28 | XMS_ITS | Clinical Summary ---
Author Organization [facility] ity Address [address] [place] [address] Care Team Providers Care Political Researcher Name Role Phone Unavailable Primary Care Provider [...] of 3 - 19+ 3-dose series) 2003 Depression Screening 06/20/2024 COVID-19 Vaccine (1 - 2023-2 5 season) 2025 Influenza Vaccine (#1) 2025 HIB Vaccines Aged [...]
== END 2025-03-14 16:01 | disposition home or self-care (01) ==
LOC: HO.HUSH 15:22
PROVIDERS: PCP Nurse Practitioner Family; Visit Provider Urology
DX: Z98.52 Vasectomy status (principal); R79.89 Other specified abnormal findings of blood chemistry
CPT/HCPCS: 99213

== ENCOUNTER → 2025-03-14 15:21 | Outpatient (BNVA) | payer OTHER, SELFPAY | PROVIDERS: PCP Nurse Practitioner Family; Visit Provider Urology | DX: Z48.816 Encounter for surgical aftercare following surgery on the genitourinary system (principal); Z98.52 Vasectomy status; R79.89 Other specified abnormal findings of blood chemistry | CPT/HCPCS: 99212 ==

== ENCOUNTER 2025-05-06 15:37 | Outpatient (AMB) | payer OTHER, SELFPAY ==
--- NOTE | 2025-05-06 15:51 | MHC.OFFVIS ---
Intake Visit Reasons: 8W Semen Analysis Intake Note: Patient presents today for a 8w semen analysis Urology Medication:none Blood Thinner:none Antibiotic Allergies:none Allergies No Known Allergies Allergy (Verified 05/06/25 15:51) HPI Comments Details: 05/06/25--Khari is here post vasectomy he has brought in a semen sample so that I can evaluate under the microscope to rule out sperm being present. Bacteria is visualized under the microscope. Antibiotics prescribed. 03/14/25--Khari is here post vasectomy he has brought in a semen sample so that I can evaluate under the microscope to rule out sperm being present. He has seen the nurse practitioner in November of this year he had concerns regarding his testosterone level with symptoms of generalized fatigue. His levels were low normal. I will have him follow-up with the nurse practitioner if he still has these concerns. Results - Semen analysis: Presence of sperm observed Plan 1. Post-Vasectomy Evaluation - Repeat semen analysis in eight weeks to reassess for the presence of sperm. - Continue using protection until confirmation of azoospermia. 2. Low Normal Testosterone Levels - Follow-up with nurse practitioner if symptoms persist. - Consider alternative treatment options if current prescription is not covered by insurance. 12/05/24--Chano is a 39-year-old male patient of Dr. Montiel. He has a past medical history of a head injury. He is being followed up on today via video telehealth for his borderline hypogonadism. Of note, patient was seen approximately [address] Prosper Simon at which time he he underwent vasectomy evaluation. He does have a vasectomy scheduled in the operating room next week on 12-11. However, he had been reporting generalized fatigue and was enquiring further assessment evaluation of his testosterone levels. These labs were ordered and obtained. These results were reviewed and communicated with the patient today. Testosterone: 10/12 332 Free testosterone: 10/12 60.1 We discussed testosterone replacement verses testosterone mandaen. We discussed risks and benefits of these interventions. He otherwise denies any bothersome urinary issues. He reports be happy with current voiding parameters. All questions were answered. [facility] Medical History Head injury Surgical History H/O vasectomy History of appendectomy Family History Paternal Grandfather Heart disease Diabetes Social History Housing: Condominium Alcohol intake: current Alcohol intake frequency: a few times a week Patient Tobacco Use Status: Never used Tobacco e-Cigarette/Vaping Use: Never Used service: Yes Current occupational status: employed Current occupation: [employer] Cognitive needs: No Hearing needs: No Vision needs: Yes Assessment & Plan Assessment & Plan (1) Status post vasectomy: Code(s): Z98.52 - Vasectomy status Category: Surgical (2) Bacteria arranged as isolated organisms: Code(s): A49.9 - Bacterial infection, unspecified Category: Medical Plan Bacteria seen microscopically in semen, will prescribe antibiotics Patient Instructions: This note is constructed in part using voice recognition software. While every effort has been made to ensure accuracy community program assistant errors may have been included. Coding Level of Care Code Global (67056) Diagnoses Status post vasectomy Z98.52 Bacteria arranged as isolated organisms A49.9
--- OUTSIDE RECORDS SUMMARY | 2025-05-07 06:08 | XMS_ITS | Clinical Summary ---
Author Organization [facility] ity Address [address] [place] [address] Care Team Providers Care Stunt Performer Name Role Phone Unavailable Primary Care Provider [...] of 3 - 19+ 3-dose series) 2003 HPV Vaccines (1 - 3-dose SCD M series) 2011 Depression Screening 06/20/2024 COVID-19 Vaccine (1 - 2024-2 6 season) 2025 Influenza Vaccine (#1) 2025 RSV Immunization Adult Patie nts (1 - 1-dose 75+ series) 2059 HIB Vaccines Aged Out No longer eligi [...]
== END 2025-05-06 16:19 | disposition home or self-care (01) ==
LOC: HO.HUSH 15:38
PROVIDERS: PCP Nurse Practitioner Family; Visit Provider Urology
DX: A49.9 Bacterial infection, unspecified (principal); Z98.52 Vasectomy status
CPT/HCPCS: 99213

== ENCOUNTER → 2025-05-06 15:37 | Outpatient (BNVA) | payer OTHER, SELFPAY | PROVIDERS: PCP Nurse Practitioner Family; Visit Provider Urology | DX: A49.9 Bacterial infection, unspecified (principal); Z98.52 Vasectomy status | CPT/HCPCS: 99212 ==

== ENCOUNTER 2025-05-15 10:44 | Outpatient (AMB) | payer OTHER, SELFPAY ==
[2025-05-15 11:31] VITALS: BP 120/78; BMI 39.1
--- NOTE | 2025-05-15 11:31 | A.OFFVIS_ITS ---
Vital Signs 05/15/25 11:31 Height 6 ft Weight 288 lb BMI 39.1 BP 120/78 Blood Pressure Location Rt brachial Position Sitting Intake Visit Reasons: INP- Post Concussional Syndrome Brim Blocker Required: No Accompanied by: Self / Same As Patient Allergies No Known Allergies Allergy (Verified 05/06/25 15:51) HPI Comments Details: 39-yr-old male presents for new patient evaluation of postconcussive syndrome. Pt reports he began experiencing headache upon sustaining a mild TBI/concussion w/o LOC in Jan 2024, which he attributed to having been repeatedly struck in the head, with blunt force, during a required training exercise. He reports during this training, he was intentionally struck in his head 4 times. He states that he felt fine after the initial 3 head strikes, however, immediately after the 4th head strike, he felt unwell and disorientated. He reports he did not lose consciousness at the time of the injury. However, he states he then experienced amnesia, as he could not remember the flight he took back home, which was within 72 hours of the injury. Thus, he sought medical care upon returning home and experienced amnesia, n remembering the flight home, which prompted him to seek a [facility] ER evaluation, where he was dx'd w/ concussion and discharged w/ conservative tx. He further reports that in the weeks following the head injury, he experienced severe symptoms including headache (a/w seeing stars, photophobia), photophobia requiring sitting in a dark room, inability to look at computer screens, brain fatigue, nausea, dizziness, and increased sleep difficulties. Since, he states these symptoms have improved, but he continues to experience frequent bothersome photophobia, migraine-like headaches a couple of times a month, sleep difficulties, and occasional dizziness (like he is 10 feet tall and floating). 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 Previous history of headaches: Endorses remote h/o headache d/t astigmatism and in-need of new prescription glasses, which were non-migrainous and different from his current headache. . PMH and ROS are also notable for:? Weight gain- almost 50 lbs since the above head injury Knee pain PTSD Sleep difficulties Low testosterone Tinnitus and hearing loss related to service Bruxism s/p appendectomy Pertinent denials include: diplopia, and denies history of bipolar disorder, kidney stones, blood clotting disorders, asthma, hypertension, cardiac issues, or seizure disorder.. 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 Headache questionnaire * Types of headache disorders: 1 * Age/time of onset: Jan 2024 * Preceding causes: TBI * Family history of headache disorder: Denies * Previous work-up: * MRI, brain: none * CT, head, w/o contrast, 10/05/24: unrmearkable * Previous neurological care: none Typical headache characteristics * Duration of each headache attack: all day * Frequency of this attack: couple of times a month * Time of day this headache usually occurs: No specific circadian pattern * Time of year or season this headache usually occurs: No specific circannual pattern * Prodrome symptoms: Denies * Aura: sees stars during the headache * Pain intensity: mild-moderate * Location, quality, characteristics: Pressure behind bilateral eyes and bridge of nose * Associated symptoms: photophobia, activity intolerance * Atypical associated symptoms: Denies * Postdrome: Denies * Aggravating factors during this headache: Hot air, pressure * Alleviating factors during this headache: See current treatment strategies below. * Triggers that provoke this headache: Lights * Headache impact on your quality of life: Has had to change his office set-up to avoid the light Current treatment strategies * Current acute medication use/interventions: Excedrin and Ibuprofen- not always fully effective * Current preventative medication use: Denies * Current non-pharmacological interventions: Rest, sleep PFSH Medical History (Updated 05/20/25 @ 11:59 by DEVONTE Grove) Head injury Surgical History (Updated 05/15/25 @ 11:33 by Frances Rouse CMA) H/O vasectomy History of appendectomy Family History Paternal Grandfather Heart disease Diabetes Social History Housing: Condominium Alcohol intake: current Alcohol intake frequency: a few times a week Patient Tobacco Use Status: Never used Tobacco e-Cigarette/Vaping Use: Never Used service: Yes Current occupational status: employed Current occupation: [employer] Cognitive needs: No Hearing needs: No Vision needs: Yes Physical Exam Vital Signs: Last Vital Signs BP 120/78 05/15/25 11:31 BMI result Body Mass Index 39.1 Const Orientation/consciousness: patient oriented x3 Resp Effort & Inspection: normal respiratory effort and able to speak in complete sentences Neuro Other: Photophobic EOM intact however bilateral upgaze induces discomfort No palpable scalp tenderness. Finger-Nose (patient - patient): Mild left dysmetria. Right intact General: patient oriented x3 Cranial nerves: Yes CN's II-XII intact bilaterally Cognition (Neuro): normal cognition Gait exam (Neuro): Normal gait present Motor exam (neuro): 5/5 motor strength present throughout Deep tendon reflexes (DTR's): Right triceps reflex intensity grade: 2+, Left triceps reflex intensity grade: 2+, Rt Biceps (C5, C6): 2+, Left biceps reflex intensity grade: 2+, Right brachioradialis reflex intensity grade: 2+, Left brachioradialis reflex intensity grade: 2+, Right patellar reflex intensity grade: 2+ and Left patellar reflex intensity grade: 2+ Coordination: tandem gait normal and Romberg test negative Pupils: Normal pupillary reactivity/response: bilateral Psych Appearance: grossly normal Mental Status: mental status grossly normal Speech and movement: Normal speech and movement present Affect: normal affect Attitude: cooperative Thought process: Normal thought process present Assessment & Plan Assessment & Plan (1) Post concussive syndrome: Comment: s/p JAN 2024 TBI w/o LOC: w/ headache w/ migraine phenotype, photophobia, dizziness, sleep difficulties Code(s): F07.81 - Postconcussional syndrome Category: Medical (2) TBI (traumatic brain injury): Comment: w/ post-injury amnesia Code(s): S06.9XAA - Unspecified intracranial injury with loss of consciousness status unknown, initial encounter Category: Medical Qualifiers: Encounter type: sequela Loss of consciousness presence/duration: without LOC Qualified Code(s): S06.9X0S - Unspecified intracranial injury without loss of consciousness, sequela (3) Posttraumatic headache: Comment: s/p JAN 2024 TBI w/o LOC: w/ migraine phenotype Code(s): G44.309 - Post-traumatic headache, unspecified, not intractable Category: Medical Qualifiers: Headache chronicity pattern: unspecified pattern Intractability: not intractable Qualified Code(s): G44.309 - Post-traumatic headache, unspecified, not intractable (4) Sleep difficulties: Code(s): G47.9 - Sleep disorder, unspecified Category: Medical (5) Fatigue: Code(s): R53.83 - Other fatigue Category: Medical Qualifiers: Fatigue type: chronic, unspecified Qualified Code(s): R53.82 - Chronic fatigue, unspecified (6) Snoring: Comment: stop bang score 5- high-risk for VANNESA Code(s): R06.83 - Snoring Category: Medical (7) Obesity: Code(s): E66.9 - Obesity, unspecified Category: Medical Qualifiers: Obesity type: unspecified obesity type Obesity classification: adult class 2 (BMI 35 - 39.9) Serious obesity comorbidity presence: without serious comorbidity Plan Discussion note I had a detailed discussion with the patient regarding the diagnosis of post- concussive syndrome with chronic post-traumatic headaches. I explained that while most people recover from concussions quickly, a subset can have persistent symptoms like headache, dizziness, and sleep issues, and that the patient's headache symptoms are characteristic of a migraine phenotype. We discussed that even at 16 months post-injury, there is still potential for the brain to heal, and that the history of multiple impacts in a short time frame was a likely contributor to the prolonged symptoms. For diagnostic purposes, especially considering the patient's career, I recommended a brain MRI with and without contrast, explaining it provides more detailed imaging than the previous CT scan. In terms of treatment, I prescribed sumatriptan as an abortive medication to be taken at the onset of a headache. I reviewed the potential side effects, including nausea, sleepiness, and a temporary chest/head tingling sensation, and noted it can be taken with NSAIDs if needed. We also discussed preventative options, including OTC supplements, magnesium, and vitamin B2. 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 Given the reported snoring and apneic episodes in the setting of significant weight gain since the head injury, I recommended and will order a home sleep study to evaluate for obstructive sleep apnea. The patient agreed with the plan and understood the next steps for the MRI, sleep study, and new medication. Patient was informed and verbally consented to the use of an ambient scribe for clinic note documentation during this visit. You are advised to undergo the following: Brain MRI with and without contrast Home sleep study Headache Management Tips Combining good self-care with some helpful tools can make managing headaches much easier. Healthy Habits * Eat a balanced diet * Drink enough water throughout the day, typically at least 64 oz of fluid per day * Get regular, adequate sleep consisting of 7-9 hours of sleep per night * Stay active with routine physical activity, typically at least 30 minutes 5 days per week * Stay connected with friends and family, enjoy meaningful activities, and take care of your mood Tracking Your Headaches * Write down when headaches happen, what helps, and any side effects of new treatments * There are several options to help you, such as: * Apps such as Migraine Davy * A simple paper calendar or paper migraine tracker Non-Medication Strategies * Light sensitivity: special glasses may help (blue-light or FL-41 filters, green lenses) or green-light therapy * Avoid wearing dark sunglasses indoors * Sound sensitivity: noise-canceling earplugs can reduce bothersome noise * Neuromodulation devices: certain medical devices can be used alone or with medications to lower headache frequency and severity These strategies may not stop every attack, but over time, they can reduce headache frequency, intensity, and impact. For acute (as needed) headache treatment: It is important to take acute medications at the first sign of headache. However, please be aware that frequently using most acute medications may increase the frequency of your headache attacks, as well as make your other treatments less effective. * Trial Sumatriptan 100mg tab, 1/2 - 1 tab (50-100mg) at onset of headache, may repeat in 2 hours. Max of 2 tabs (200mg) per 24 hours. * May take sumatriptan with OTC Tylenol 650-1,000mg every 4-6 hours, Ibuprofen (liquid gels) 600mg every 6 hours, or Naproxen (liquid gels) 440mg q 12 hrs prn. * Potential adverse effects of triptans, include but are not limited to naus ea, fatigue, chest tightness/tingling (usually passes within a few minutes), medication overuse headaches. Previous acute migraine medication trials: OTC Excedrin, Ibuprofen- not fully effective Acute migraine medication contraindications: None at this time For headache prevention medication: Preventative medications should be taken routinely as prescribed for best effect, it may take several weeks for full effect to take effect. * Start Riboflavin 400mg daily in the morning * This is generally well tolerated, however some people may experience mild abdominal discomfort from use. * This will cause your urine to become bright yellow or orange, which is expected and not of any concern. * Start Magnesium 400mg daily at bedtime * Magnesium comes in many subtypes, such as magnesium oxide, glycinate, citrate, and even try magnesium combinations. Additionally magnesium comes in many forms, including tablets, capsules, powders or even liquid formulations. There is not a specific magnesium subtype or form known to be significantly more effective than another. Rather, the magnesium subtype inform that you best tolerate, is the best version for you. * Possible side effects of magnesium include, but are not limited to, GI upset, abdominal cramping, loose stools, and diarrhea Previous migraine prevention medication trials: None Migraine prevention medication contraindications: None at this time We will follow-up upon review of above and with a follow-up clinic visit in 3-6 months or sooner as needed. Patient was informed and verbally consented to the use of an ambient scribe for clinic note documentation during this visit. Orders: Orders RT home sleep study 05/15/25 E66.9 - Obesity, unspecified, G47.9 - Sleep disorder, unspecified, R06.83 - Snoring, R53.83 - Other fatigue MR head/brain wo/w con 05/15/25 F07.81 - Postconcussional syndrome, G44.309 - Post-traumatic headache, unspecified, not intractable, H53.149 - Visual discomfort, unspecified, S06.9XAA - Unspecified intracranial injury with loss of consciousness status unknown, initial encounter Medications: New magnesium oxide may hold for loose stools 400 mg PO BEDTIME 90 tabs 3RF 90 days sumatriptan succinate 50 - 100 mg orally at onset of headache, may repeat in 2 hrs PRN; max 2 tabs per day or 4 tabs/week (may take with Ibuprofen) 12 tabs 6RF migraine headache 30 days riboflavin (vitamin B2) 400 mg PO DAILY 90 tabs 3RF 90 days Coding Level of Care Code New Pt Level 4 (20804) Diagnoses Post concussive syndrome F07.81 Traumatic brain injury, without loss of consciousness, sequela S06.9X0S Encounter type: sequela Loss of consciousness presence/duration: without LOC Post-traumatic headache, not intractable, unspecified chronicity pattern G44.309 Headache chronicity pattern: unspecified pattern Intractability: not intractable Sleep difficulties G47.9 Chronic fatigue R53.82 Fatigue type: chronic, unspecified Snoring R06.83 Obesity E66.9 Obesity type: unspecified obesity type Obesity classification: adult class 2 (BMI 35 - 39.9) Serious obesity comorbidity presence: without serious comorbidity
--- OUTSIDE RECORDS SUMMARY | 2025-05-15 13:03 | XMS_ITS | Clinical Summary ---
Author Organization [facility] ity Address [address] [place] [address] Care Team Providers Care Tier And Detonator Name Role Phone Unavailable Primary Care Provider [...]
== END 2025-05-15 12:56 | disposition home or self-care (01) ==
LOC: HO.HSMS 10:45
PROVIDERS: PCP Nurse Practitioner Family; Visit Provider Nurse Practitioner Family
DX: G44.309 Post-traumatic headache, unspecified, not intractable (principal); F07.81 Postconcussional syndrome; G47.9 Sleep disorder, unspecified; R53.82 Chronic fatigue, unspecified; R06.83 Snoring; E66.9 Obesity, unspecified
CPT/HCPCS: 99204

== ENCOUNTER → 2025-05-15 10:44 | Outpatient (BNVA) | payer OTHER, SELFPAY | PROVIDERS: PCP Nurse Practitioner Family; Visit Provider Nurse Practitioner Family | DX: G44.309 Post-traumatic headache, unspecified, not intractable (principal); E66.9 Obesity, unspecified; R06.83 Snoring; R53.82 Chronic fatigue, unspecified; G47.9 Sleep disorder, unspecified; F07.81 Postconcussional syndrome | CPT/HCPCS: 99202 ==

== ENCOUNTER 2025-06-06 13:01 | Outpatient (AMB) | payer OTHER, SELFPAY ==
--- NOTE | 2025-06-06 10:47 | A.OFFVIS_ITS ---
Intake Visit Reasons: Semen Analysis (set) Intake Note: 40 year old male in office today for a semen analysis 8 week post vasectomy was abnormal running another semen analysis today Allergies No Known Allergies Allergy (Verified 05/06/25 15:51) HPI Comments Details: 06/06/25--Khari is here for another semen analysis. He completed the Levaquin 500 mg for 9 days. Today the semen was evaluated under the microscope by myself and Dr. Arellano there is no evidence of sperm there is no bacteria seen. Patient is advised of results. Follow-up prn. PFSH Medical History Head injury Surgical History H/O vasectomy History of appendectomy Family History Paternal Grandfather Heart disease Diabetes Social History Housing: Condominium Alcohol intake: current Alcohol intake frequency: a few times a week Patient Tobacco Use Status: Never used Tobacco e-Cigarette/Vaping Use: Never Used service: Yes Current occupational status: employed Current occupation: Cognitive needs: No Hearing needs: No Vision needs: Yes Assessment & Plan Assessment & Plan (1) Status post vasectomy: Code(s): Z98.52 - Vasectomy status Category: Surgical Plan semen was evaluated under the microscope by myself and Dr. Arellano there is no evidence of sperm there is no bacteria seen. Follow-up prn. Patient Instructions: The patient had an opportunity to ask questions regarding treatment plan. The patient expressed understanding and agreement with the above treatment plan. The patient is aware they should contact our office by phone for worsening of their current condition or the appearance of new symptoms. Compliance is encouraged with any medications and followup testing that is ordered. It is a privilege to be allowed the opportunity to participate in the urologic care of your patient. If you have any questions or concerns regarding treatment for the above conditions please do not hesitate to contact me. The office telephone contact is [phone]. This note is constructed in part using voice recognition software. While every effort has been made to ensure accuracy library assistant errors may have been included. Yours sincerely, Ella Cunningham MD Coding Level of Care Code Global (10196) Diagnoses Status post vasectomy Z98.52
--- OUTSIDE RECORDS SUMMARY | 2025-06-06 16:55 | XMS_ITS | Clinical Summary ---
Author Organization [facility] ity Address [address] [place] [address] Care Team Providers Care Gear Nicker Name Role Phone Unavailable Primary Care Provider [...]
--- OUTSIDE RECORDS SUMMARY | 2025-06-06 16:55 | XMS_ITS | Patient Health Record ---
Author Organization [facility] Rebekah moy [place] Address [address] [place] [address] Care Team Providers Care Methods Specialist Name Role Phone Khari Rosas Primary Care Provider Unav Donnell Martinez Unavailable [phone] Allergies No Known Allergies Reason For Referral [...] X ray : Foot, right 3V 01/26/2023 [id number] TENDON SHEATH/LIGAMENT 1 Insurance Providers Payer Name Payer Address Payer Phone Subscriber Number Group Number Insured Name Patient Relationship to Insured Coverage Start Date Coverage End Date [employer] [address] [place] [id number] Dev Siu Self - patient is the insured Medical (General) History Medical History History ICD Code Chicken pox Surgical History Surgery Date(Month/Year) appendectomy 1997
== END 2025-06-06 16:06 | disposition home or self-care (01) ==
LOC: HO.HUSH 13:02
PROVIDERS: PCP Nurse Practitioner Family; Visit Provider Urology
DX: Z98.52 Vasectomy status (principal)
CPT/HCPCS: 99213

== ENCOUNTER → 2025-06-06 13:01 | Outpatient (BNVA) | payer OTHER, SELFPAY | PROVIDERS: PCP Nurse Practitioner Family; Visit Provider Urology | DX: Z98.52 Vasectomy status (principal) | CPT/HCPCS: 99212 ==